=== PATIENT | female | born 2000 | race Caucasian/White ===

== ENCOUNTER 2021-03-19 08:55 | Emergency (ER) | payer MEDICAID, SELFPAY ==
--- NOTE | ~2021-03-19 | CT_ITS ---
EXAMINATION: CT ABDOMEN AND PELVIS WITH CONTRAST CLINICAL INFORMATION: Nausea and vomiting and intermittent lower abdominal pain for 2 weeks. COMPARISON: None TECHNIQUE: Multidetector volumetric images were obtained from the superior aspect of the liver through the pubic symphysis following administration 85 mL of Omnipaque 350 intravenous contrast. Sagittal and coronal reformatted images were obtained on the technologist's workstation. Oral contrast: No This CT examination was performed using dose optimization techniques as appropriate, variously including the following: *Automated exposure control *Adjustment of mA and/or kV according to patient size (this includes techniques or standardized protocols for targeted exams where dose is matched to indication/reason for exam; i.e. extremities or head) *Use of iterative reconstruction technique DLP: 307 mGy-cm FINDINGS: LUNG BASES: The visualized lung bases are unremarkable. LIVER, GALLBLADDER, AND BILIARY TREE: Unremarkable. PANCREAS: Unremarkable. SPLEEN: Unremarkable. ADRENAL GLANDS: Unremarkable. KIDNEYS AND URETERS: The kidneys are normal in size, shape, and attenuation. No hydronephrosis, hydroureter, or calculi seen. No perinephric stranding. BLADDER: Unremarkable. GASTROINTESTINAL TRACT: The stomach, small bowel, appendix and large bowel are unremarkable. ABDOMINAL WALL: No significant hernia is appreciated. LYMPH NODES: Normal. VASCULAR: Unremarkable. PELVIC VISCERA: Unremarkable. 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 No significant degenerative changes or suspicious abnormality. CT/CT abdomen pelvis w con IMPRESSION: No significant intra-abdominal/pelvic abnormality. A causative abnormality for the patient's symptoms is not identified.
[2021-03-19 09:13] VITALS: BP 115/49; PULSE 84; RESP 20; TEMP 36.9; O2SAT 98; BMI 20.7
[2021-03-19 09:49] LABS: Appearance Urine HAZY; Color Urine YELLOW; Glucose Urine UA NEG (NEG); Leukocyte Esterase Urine NEG (NEG); Nitrite Urine NEG (NEG); Specific Gravity - Urine >= 1.030 (1.005-1.025); Urine Blood 3+ (NEG); Urine Ketones NEG (NEG); Urine Protein NEG (NEG-TRACE)
[2021-03-19 09:52] LABS: UPreg QC Valid YES; Urine Pregnancy NEGATIVE (NEGATIVE)
[2021-03-19 09:58] LABS: MANUAL DIFF FLAG NO
[2021-03-19 10:05] LABS: INTERNATIONAL NORM RATIO 1.1 (0.9-1.1); Prothrombin Time 13.6 SEC (10.8-13.0)
[2021-03-19 10:06] LABS: Basophils Percent Auto 0.1 % (0-2); Eosinophils Percent Auto 0.2 % (0-4); Hematocrit 38.5 % (37-47); Imm Gran Abs Auto 0.05 X10*3/uL (0.00-0.03); Imm Gran Pct Auto 0.4 % (0.0-0.4); Lymphocytes Absolute Auto 1.2 X10*3/uL (1.2-4.9); Lymphocytes Percent Auto 8.7 % (20-40); Mean Corpuscular HGB Conc 33.8 g/dl (31.0-35.0); Mean Corpuscular Hemoglobin 30.5 pg (27.0-33.0); Mean Corpuscular Volume 90.4 fL (80-98); Mean Platelet Volume 10.6 fL (9.4-12.3); Monocytes Absolute Auto 0.9 X10*3/uL (0.1-1.2); Monocytes Percent Auto 6.7 % (2-11); Neutrophils Absolute Auto 11.2 X10*3/uL (2.0-8.3); Neutrophils Percent Auto 83.9 % (45-73); Platelet Count 199 X10*3/uL (160-400); Red Blood Count 4.26 X10*6/uL (4.20-5.50); Red Cell Distribution Width 11.9 % (11.0-16.0); White Blood Count 13.3 X10*3/uL (4.8-10.8)
[2021-03-19 10:10] LABS: Bacteria Urine TRACE /LPF; Squamous Epithelial Cell Urine TRACE /LPF; WBC Urine 0-2 /HPF (0-4)
[2021-03-19 10:27] LABS: Alanine Aminotransferase 17 U/L (0-31); Albumin Level 4.3 g/dL (3.5-5.0); Alkaline Phosphatase 73 U/L (39-117); Anion Gap 11 (12-20); Aspartate Amino Transferase 19 U/L (5-31); Bilirubin Total 0.4 mg/dL (0.0-1.0); Blood Urea Nitrogen 9 mg/dL (9-16); Calcium 9.1 mg/dL (8.4-10.2); Carbon Dioxide 25 mmol/L (22-29); Chloride 106 mmol/L (96-108); Creatinine Clr Calc Pharmacy 93.8; Estimated Glomerular Filt Rate > 60; Glucose Random 95 mg/dL (60-115); Magnesium 1.8 mg/dL (1.6-2.6); Potassium 3.6 mmol/L (3.3-5.1); Sodium 138 mmol/L (135-145)
--- NOTE | 2021-03-19 10:43 | ED.ABDPAIN ---
HPI - Abdominal Pain General Chief Complaint: Abdominal Pain Stated Complaint: vomitting Time Seen by Provider: 03/19/21 09:22 Source: patient and family (Mother at bedside) Mode of arrival: ambulatory Limitations: no limitations History of Present Illness HPI narrative: 20-year-old female with no significant past medical or surgical history presenting with her mother with complaints of intermittent vomiting over the past 2 weeks usually in the mornings with associated diffuse abdominal pain. Reports she had an episode this morning. Denies recent travel or sick contacts. Reports she is currently on her menstrual period at this time. Denies any fevers, dizziness, lightheadedness, black or bloody emesis, chest pain, shortness of breath, back pain, dysuria, hematuria, black or bloody stools, diarrhea or constipation or any other symptoms complaints or concerns at this time. MD elicited complaint: abdominal pain Pertinent past history: none Onset (ago): week(s) (Intermittently for the past 2 weeks) Pain Consistency: intermittent Location: diffuse and suprapubic Severity: moderate Quality: aching Radiation: none Migration to: no migration Exacerbating factors: nothing Relieving factors: nothing Associated symptoms: nausea and vomiting Related Data Previous Rx's Medication Instructions Recorded dicyclomine 20 mg PO BID #20 tab 03/19/21 ondansetron HCl [Zofran] 4 mg PO Q8H PRN #14 tab 03/19/21 Allergies Allergy/AdvReac Type Severity Reaction Status Date / Time No Known Allergies Allergy Verified 03/19/21 09:28 Review of Systems Review of Systems Constitutional : No Weight loss, No Fever, No Chills, No Night Sweats, No Fatigue, NoMalaise ENT/Mouth: No ear pain, No sore throat, No Difficulty swallowing Cardiovascular : No Chest Pain, No SOB, No Dyspnea on Exertion, No Orthopnea, NoEdema, No Palpitations Respiratory : No Cough, No Sputum, No Wheezing, No Dyspnea Gastrointestinal : Positive nausea/vomiting/abdominal pain, No Diarrhea, No blood streaked emesis, No coffee-ground emesis, No gross hematemesis, No blood streak stool, No gross hematochezia, No Melena Genitourinary : No irregular bleeding, No Dysuria, No Urinary Frequency, No Hematuria,No Urinary Incontinence, No Urgency, No Flank Pain Musculoskeletal : No joint pain, No Myalgias, No Joint Swelling Skin : No Skin Lesions, No rash Neuro : No Weakness, No Numbness, No Paresthesias, No Loss of Consciousness, NoDizziness, No Headache Psych : No Social Issues, Heme/Lymph: No Bruising, No Bleeding,No Lymphadenopathy Endocrine : No Polyuria, No Polydipsia, No Temperature Intolerance Yes all other systems are reviewed and are negative Physical Exam Vital Signs: Vital Signs: Last Vital Signs Temp 97.5 F 03/19/21 11:05 Pulse 81 03/19/21 11:05 Resp 16 03/19/21 11:05 BP 101/62 03/19/21 11:05 Pulse Ox 97 03/19/21 11:05 Body Mass Index 20.7 vital signs have been reviewed as normal and appeared to be correct. Blood pressure hypotensive at 115/49. Heart rate normal. Respiration rate normal. Temperature normal. Oxygen saturation normal. Appearance: Alert. Oriented X3. No acute distress. Head: Normal external exam. Normocephalic. Eyes: PERRLA. EOMI. Conjunctiva and sclera normal. Eyelids normal. ENT: Pharynx normal. Uvula midline. Moist mucous membranes. Neck: Normal inspection. Neck supple. FROM. No adenopathy. No meningeal signs. CVS: Normal heart rate and rhythm. Heart sound normal. No murmurs noted. Pulses normal throughout. Respiratory: No respiratory distress. Painless inspiration. Breath sounds normal. No wheezes/rales/rhonchi noted. Chest nontender. No accessory muscle usage noted or decreased air movement noted. Abdomen: Soft and tender to palpation to suprapubic/lower abdomen. Nondistended. No guarding. No rigidity. Bowel sounds normal in all 4 quadrants. No distention noted. No organomegaly noted. No visible injury noted. No rebound tenderness. Negative Rovsing sign. Negative obturator's sign. Negative psoas sign. Negative Arreguin sign. Back: No CVA tenderness. Full range of motion noted. Skin: Skin warm and dry. Normal skin color. Normal skin turgor. No rashes/lesions/lacerations noted. Extremities: Extremities exhibit normal range of motion. Extremities nontender. Neuro: Oriented X 3. No motor deficit. No sensory deficit. Reflexes normal. Normal steady gait. Course Course Course Narrative: 12:30pm - labs reviewed and patient with an elevated white blood cell count at 13,000. Otherwise all other labs are within normal limits. UA revealed +3 blood which is consistent with the patient's menstrual period. Negative . CT scan of abdomen and pelvis revealed chronic changes no acute processes were noted. - therefore I went back and discussed this with the patient and her mother at bedside and I offered pelvic exam with swabs although patient declined reported that she is not have any pelvic pain or any abnormal discharge and she is not concerned for any STDs therefore at this time will DC home with referral to GI instructions to return if any new or worsening symptoms to follow up with primary care provider as well. Patient and mother at bedside understand agree with this plan. MDM - Abdominal Pain MDM Narrative Medical decision making narrative: 9:28am - 20-year-old female with no significant past medical or surgical history presenting with her mother with complaints of intermittent vomiting over the past 2 weeks usually in the mornings with associated diffuse abdominal pain. Reports she had an episode this morning. Plan: Labs, UA, CT scan of abdomen and pelvis with IV contrast. Then re-evaluate Medical Records Attestation: I reviewed the patient's medical records. Lab Data Attestation: I reviewed the patient's lab results. Result diagrams: 03/19/21 09:50 03/19/21 09:50 Labs: Lab Results 03/19/21 03/19/21 03/19/21 Range/Units 09:31 09:31 09:50 WBC 13.3 H (4.8-10.8) X10*3/uL RBC 4.26 (4.20-5.50) X10*6/uL Hgb 13.0 (12.0-16.0) g/dl Hct 38.5 (37-47) % MCV 90.4 (80-98) fL MCH 30.5 (27.0-33.0) pg MCHC 33.8 (31.0-35.0) g/dl RDW 11.9 (11.0-16.0) % Plt Count 199 (160-400) X10*3/uL MPV 10.6 (9.4-12.3) fL Immature Gran % (Auto) 0.4 (0.0-0.4) % Neut % (Auto) 83.9 H (45-73) % Lymph % (Auto) 8.7 L (20-40) % [place] % (Auto) 6.7 (2-11) % Eos % (Auto) 0.2 (0-4) % Baso % (Auto) 0.1 (0-2) % Lymph # (Auto) 1.2 (1.2-4.9) X10*3/uL [place] # (Auto) 0.9 (0.1-1.2) X10*3/uL Eos # (Auto) 0.0 (0.0-0.4) X10*3/uL Baso # (Auto) 0.0 (0.0-0.2) X10*3/uL Abs Immat Gran (auto) 0.05 H (0.00-0.03) X10*3/uL Absolute Neuts (auto) 11.2 H (2.0-8.3) X10*3/uL Absolute Nucleated RBC 0.000 (0.0-0.012) X10*3/uL Nucleated RBC % (auto) 0.0 (0.0-0.2) /100WBC PT (10.8-13.0) SEC INR (0.9-1.1) Sodium (135-145) mmol/L Potassium (3.3-5.1) mmol/L Chloride (96-108) mmol/L Carbon Dioxide (22-29) mmol/L Anion Gap (12-20) BUN (9-16) mg/dL Creatinine (0.5-1.4) mg/dL Estim Creat Clear Calc Estimated GFR Random Glucose (60-115) mg/dL Calcium (8.4-10.2) mg/dL Magnesium (1.6-2.6) mg/dL Total Bilirubin (0.0-1.0) mg/dL AST (5-31) U/L ALT (0-31) U/L Alkaline Phosphatase (39-117) U/L Total Protein (6.5-8.0) g/dL Albumin (3.5-5.0) g/dL Urine Color YELLOW Urine Appearance HAZY Urine pH 6.0 (5.0-8.0) Ur Specific [place] >= 1.030 H (1.005-1.025) Urine Protein NEG (NEG-TRACE) MG/DL Urine Glucose (UA) NEG (NEG) MG/DL Urine Ketones NEG (NEG) MG/DL Urine Blood 3+ H (NEG) Urine Nitrite NEG (NEG) Ur Leukocyte Esterase NEG (NEG) Urine RBC 76-150 H (0) /HPF Urine WBC 0-2 (0-4) /HPF Ur Squamous Epith Cells TRACE /LPF Urine Bacteria TRACE /LPF Urine Test NEGATIVE (NEGATIVE) 03/19/21 03/19/21 Range/Units 09:50 09:50 WBC (4.8-10.8) X10*3/uL RBC (4.20-5.50) X10*6/uL Hgb (12.0-16.0) g/dl Hct (37-47) % MCV (80-98) fL MCH (27.0-33.0) pg MCHC (31.0-35.0) g/dl RDW (11.0-16.0) % Plt Count (160-400) X10*3/uL MPV (9.4-12.3) fL Immature Gran % (Auto) (0.0-0.4) % Neut % (Auto) (45-73) % Lymph % (Auto) (20-40) % [place] % (Auto) (2-11) % Eos % (Auto) (0-4) % Baso % (Auto) (0-2) % Lymph # (Auto) (1.2-4.9) X10*3/uL [place] # (Auto) (0.1-1.2) X10*3/uL Eos # (Auto) (0.0-0.4) X10*3/uL Baso # (Auto) (0.0-0.2) X10*3/uL Abs Immat Gran (auto) (0.00-0.03) X10*3/uL Absolute Neuts (auto) (2.0-8.3) X10*3/uL Absolute Nucleated RBC (0.0-0.012) X10*3/uL Nucleated RBC % (auto) (0.0-0.2) /100WBC PT 13.6 H (10.8-13.0) SEC INR 1.1 (0.9-1.1) Sodium 138 (135-145) mmol/L Potassium 3.6 (3.3-5.1) mmol/L Chloride 106 (96-108) mmol/L Carbon Dioxide 25 (22-29) mmol/L Anion Gap 11 L (12-20) BUN 9 (9-16) mg/dL Creatinine 0.71 (0.5-1.4) mg/dL Estim Creat Clear Calc 93.8 Estimated GFR > 60 Random Glucose 95 (60-115) mg/dL Calcium 9.1 (8.4-10.2) mg/dL Magnesium 1.8 (1.6-2.6) mg/dL Total Bilirubin 0.4 (0.0-1.0) mg/dL AST 19 (5-31) U/L ALT 17 (0-31) U/L Alkaline Phosphatase 73 (39-117) U/L Total Protein 7.0 (6.5-8.0) g/dL Albumin 4.3 (3.5-5.0) g/dL Urine Color Urine Appearance Urine pH (5.0-8.0) Ur Specific [place] (1.005-1.025) Urine Protein (NEG-TRACE) MG/DL Urine Glucose (UA) (NEG) MG/DL Urine Ketones (NEG) MG/DL Urine Blood (NEG) Urine Nitrite (NEG) Ur Leukocyte Esterase (NEG) Urine RBC (0) /HPF Urine WBC (0-4) /HPF Ur Squamous Epith Cells /LPF Urine Bacteria /LPF Urine Test (NEGATIVE) Imaging Data CT scan of abdomen pelvis IV contrast: Attestation: I personally reviewed and interpreted this imaging study as follows: Radiologist's impression: FINDINGS: LUNG BASES: The visualized lung bases are unremarkable. LIVER, GALLBLADDER, AND BILIARY TREE: Unremarkable. PANCREAS: Unremarkable. SPLEEN: Unremarkable. ADRENAL GLANDS: Unremarkable. KIDNEYS AND URETERS: The kidneys are normal in size, shape, and attenuation. No hydronephrosis, hydroureter, or calculi seen. No perinephric stranding. BLADDER: Unremarkable. GASTROINTESTINAL TRACT: The stomach, small bowel, appendix and large bowel are unremarkable. ABDOMINAL WALL: No significant hernia is appreciated. LYMPH NODES: Normal. VASCULAR: Unremarkable. PELVIC VISCERA: Unremarkable. 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 No significant degenerative changes or suspicious abnormality. CT/CT abdomen pelvis w con IMPRESSION: No significant intra-abdominal/pelvic abnormality. A causative abnormality for the patient's symptoms is not identified. Discharge Plan Discharge Clinical Impression: Abdominal pain, Nausea & vomiting Patient Disposition: Home, Self-Care Instructions: Acute Nausea and Vomiting (ED), Abdominal Pain (ED) Prescriptions: New ondansetron HCl [Zofran] 4 mg tablet 4 mg PO Q8H PRN (Reason: nausea and vomiting) Qty: 14 RF: 0 dicyclomine 20 mg tablet 20 mg PO BID Qty: 20 RF: 0 Referrals: Willa Lambert MD [Physician] - 2 days Print Language: Bulgarian [facility] Past Medical History Attestation statement: The following information was validated with the patient. Social History Social History Advance Directives: Yes Advance Directives Information Provided: Yes Advance Directives on File: No Patient : No
[2021-03-19 11:05] VITALS: BP 101/62; PULSE 81; RESP 16; TEMP 36.4; O2SAT 97
[2021-03-19] MEDS: iohexoL 350 MG/ML 100 ML INFUS..BTL IV (11:23)
--- NOTE | 2021-03-19 12:56 | MHC.CM.ED ---
Received case management consult from SHELL Vera. Patient was about to be discharged and is concerned about not having insurance and the cost of the prescriptions. Patient is listed as self pay. Information on financial counseling office provided. Reglan is a $4 medicatiion at [facility]. Good RX card provided so Bentyl can be purchased for $20. Patient and mother verbalize understanding. Continue to monitor for d/c needs.
== END 2021-03-19 13:14 | disposition home or self-care (01) ==
PROVIDERS: Physician Assistant Medical; Emergency Provider Emergency Medicine
DX: R10.9 Unspecified abdominal pain (principal); R11.2 Nausea with vomiting, unspecified; Z79.899 Other long term (current) drug therapy
CPT/HCPCS: 36415; 74177; 80053; 81001; 81025; 83735; 85025; 85610; 99284; Q9967

== ENCOUNTER 2021-09-27 17:29 | Emergency (ER) | payer MEDICAID, SELFPAY ==
[2021-09-27 17:33] VITALS: BP 138/76; PULSE 81; RESP 18; TEMP 36.8; O2SAT 99; BMI 19.4
--- NOTE | 2021-09-27 20:18 | PC.NURSE ---
Pt refused Covid swab.
[2021-09-27 20:20] LABS: Basophils Percent Auto 0.3 % (0-2); Eosinophils Percent Auto 0.3 % (0-4); Hematocrit 38.4 % (37.0-47.0); Hemoglobin 12.6 g/dl (12.0-16.0); Imm Gran Abs Auto 0.03 X10*3/uL (0.00-0.03); Imm Gran Pct Auto 0.3 % (0.0-0.4); Lymphocytes Absolute Auto 1.9 X10*3/uL (1.2-4.9); Lymphocytes Percent Auto 20.2 % (20-40); MANUAL DIFF FLAG NO; Mean Corpuscular HGB Conc 32.8 g/dl (31.0-35.0); Mean Corpuscular Hemoglobin 30.3 pg (27.0-33.0); Mean Corpuscular Volume 92.3 fL (80.0-98.0); Mean Platelet Volume 10.7 fL (9.4-12.3); Monocytes Absolute Auto 0.5 X10*3/uL (0.1-1.2); Monocytes Percent Auto 5.7 % (2-11); Neutrophils Absolute Auto 6.9 x10*3/uL (2.0-8.3); Neutrophils Percent Auto 73.2 % (45-73); Platelet Count 245 X10*3/uL (160-400); Red Blood Count 4.16 X10*6/uL (4.20-5.50); Red Cell Distribution Width 11.9 % (11.0-16.0); White Blood Count 9.4 X10*3/uL (4.8-10.8)
[2021-09-27 20:37] LABS: Alanine Aminotransferase 16 U/L (0-31); Albumin Level 4.4 g/dL (3.5-5.0); Alkaline Phosphatase 71 U/L (39-117); Anion Gap 12 (12-20); Aspartate Amino Transferase 21 U/L (5-31); Bilirubin Total 0.5 mg/dL (0.0-1.0); Blood Urea Nitrogen 9 mg/dL (9-16); Calcium 9.7 mg/dL (8.4-10.2); Carbon Dioxide 25 mmol/L (22-29); Chloride 105 mmol/L (96-108); Creatinine Clr Calc Pharmacy 85.6; Estimated Glomerular Filt Rate > 60; Glucose Random 104 mg/dL (60-115); Potassium 4.3 mmol/L (3.3-5.1); Sodium 138 mmol/L (135-145); Total Protein 7.3 g/dL (6.5-8.0)
--- NOTE | 2021-09-27 21:05 | ED_ITS ---
HPI - General Adult General Chief complaint: Headache Stated complaint: headache fatigue Time Seen by Provider: 09/27/21 20:31 Source: patient Mode of arrival: ambulatory Limitations: no limitations History of Present Illness HPI narrative: 20-year-old female patient with history migraine presents to the ED for migraine exacerbation and fatigue. Patient states she was diagnosed with migraine last year in [place] and was placed on migraine regimen, but not of pills worked. Than patient moved here to [place] and does not have a primary care provider and has no meds. Patient recently had her insurance. Patient denies any slurred speech, facial droop, paralysis of extremities, seizures, loss of consciousness tingling/numbness in extremities, loss of vision, neck stiffness, fever, seizure or chills. Patient was tested for COVID September 16 and was negative. Patient is not vaccinated. Patient refused another COVID test in the ER. Related Data Previous Rx's Medication Instructions Recorded dicyclomine 20 mg tablet 20 mg PO BID #20 tab 03/19/21 metoclopramide HCl 10 mg tablet 10 mg PO Q6H PRN #30 tab 03/19/21 (Reglan) ondansetron HCl 4 mg tablet 4 mg PO Q8H PRN #14 tab 03/19/21 (Zofran) [id number] 1 cap PO Q6H PRN 4 Days #16 cap 09/27/21 50 mg-300 mg-40 mg capsule (Fioricet) naproxen 500 mg tablet 500 mg PO BID PRN 10 Days #20 tab 09/27/21 Allergies Allergy/AdvReac Type Severity Reaction Status Date / Time No Known Allergies Allergy Verified 03/19/21 09:28 Review of Systems Review of Systems: Yes all other systems are reviewed and are negative Constitutional: Constitutional: Reports as per HPI, Reports no additional constitutional complaints, Denies anorexia, Denies body ache(s), Denies chills, Reports fatigue and Reports headache(s) Eyes: Eyes: Reports as per HPI and Reports no additional eye complaints ENT: Reports system reviewed and no additional complaints, except as documented, Reports as per HPI and Reports headache(s) Cardiovascular: Cardiovascular: Reports as per HPI and Reports no additional cardiovascular complaints Respiratory: Respiratory: Reports as per HPI and Reports no additional respiratory complaints Gastrointestinal: Gastrointestinal: Reports as per HPI and Reports no additional gastrointestinal complaints Genitourinary: Genitourinary: Reports no additional female genitourinary complaints and Reports as per HPI Musculoskeletal: Musculoskeletal: Reports no additional musculoskeletal complaints and Reports as per HPI Integumentary/Breasts: Skin/Breast: Reports system reviewed and no additional complaints, except as docu and Reports as per HPI Neurologic: Reports system reviewed and no additional complaints, except as documented, Reports as per HPI and Reports headache(s) Psychiatric: Psychiatric: Reports no additional psychiatric complaints and Reports as per HPI Endocrine: Endocrine: Reports fatigue [facility] Social History Social History Advance Directives: No Advance Directives Information Provided: Yes Physical Exam Vital Signs: Vital Signs: Last Vital Signs Temp 98.2 F 09/27/21 17:33 Pulse 81 09/27/21 17:33 Resp 18 09/27/21 17:33 BP 138/76 09/27/21 17:33 Pulse Ox 99 09/27/21 17:33 BMI result Body Mass Index 19.4 Const: General: cooperative, healthy appearing, comfortable, no acute distress, well developed, alert, awake and Physically active Orientation/consciousness: patient oriented x3 HENMT: Head: Yes normal to inspection, Yes No palpable skull fracture present, Yes normocephalic, Yes atraumatic, No abrasion, No Acrocyanosis present, No Whitehead's sign, No contusion, No cranial bruits, No hematoma, No laceration, No occipital foramen tenderness, No palpable skull fracture, No raccoon eyes, No scalp lesion, No scalp tenderness, No Temporal artery tenderness present and No periorbital ecchymosis Ears: hearing grossly normal bilaterally, external ears normal, TM's normal bilaterally, EAC's normal, mastoids normal and no periauricular adenopathy Eyes: Other: Negative nystagmus General: appearance normal, both eyes and all related structures Pupils: Equal, round and reactive pupils present Neck: Neck: Yes normal visual inspection, Yes full ROM, Yes no lymphadenopathy, Yes no meningeal signs, Yes trachea midline, Yes supple, No anterior neck swelling and No tender Chest: Chest palpation & inspection: normal inspection of the chest and normal palpation of entire chest wall Resp: Effort & Inspection: normal respiratory effort and able to speak in complete sentences Auscultation: clear to auscultation bilaterally Cardio: Jugular venous distension: no JVD Heart sounds: S1 normal heart sound present and S2 normal heart sound present GI: Inspection: Yes normal to inspection and No abdominal wall ecchymosis Palpation (GI): Soft to palpation, not firm, nontender, no guarding and not rigid : General: No CVA tenderness and Yes no CVA tenderness Back/Spine/Pelvis: Back: no CVA tenderness, No CVA tenderness and No back tenderness Skin: General skin exam: no rashes or lesions noted and elasticity normal Neuro: Other: Negative facial droop. Negative slurred speech. All extremities equal strength 5+. [id number] and rapid hand movement intact. Negative Romberg. Negative pronator drift. General: patient oriented x3, gait normal, moves all extremities, Normal light touch and pain sensation, no meningeal signs, no focal motor deficits, CN's II-XI intact bilaterally, normal sensation to monofilament and deep tendon reflexes 2+ bilaterally Cranial nerves: Yes CN's II-XII intact bilaterally, Yes Facial sensation intact/muscles of mastication intact, Yes Intact sense of smell present, Yes Equal, round and reactive pupils present, Yes Normal accommodation reflex present, Yes Bilateral ly intact EOM present, Yes Nystagmus not present, Yes Normal facial strength present, Yes Midline tongue present and Yes Normal gag reflex present Cognition (Neuro): normal cognition Extrem: General: Yes normal to inspection and Yes full ROM Psych: Appearance: grossly normal, well kempt and not disheveled NIH Stroke Scale Internal: Other Level of Consciousness: Alert Level of Consciousness Questions: Answers both questions correctly Level of Consciousness Commands: Performs both tasks correctly Best Gaze: Normal Visual: No visual loss Facial Palsy: Normal Motor Arm (Right): No drift Motor Arm (Left): No drift Motor Leg (Right): No drift Motor Leg (Left): No drift Limb Ataxia: Absent Sensory: Normal Best Language: No aphasia Dysarthia: Normal Extinction and Inattention: No abnormality Score: 0 Course Course Course Narrative: Patient refused COVID swab. Reevaluation(s) Reevaluation #1: Patient labs are normal. Negative for any neuro deficits. No indication for head CT scan. Patient will be discharged with naproxen and fiorecet. Diagnosis migraine exacerbation. Patient will be followed up with Neurology to put on migraine regimen. Patient states she has not been on migraine regimen/meds since she moved to [place]. Patient does not remember the names of the meds. NIH score 0. Time: 21:34 Medical Decision Making MDM Narrative Medical decision making narrative: Migraine exacerbation Lab Data Result diagrams: 09/27/21 20:14 09/27/21 20:14 Labs: Lab Results 09/27/21 09/27/21 Range/Units 20:14 20:14 WBC 9.4 (4.8-10.8) X10*3/uL RBC 4.16 L (4.20-5.50) X10*6/uL Hgb 12.6 (12.0-16.0) g/dl Hct 38.4 (37.0-47.0) % MCV 92.3 (80.0-98.0) fL MCH 30.3 (27.0-33.0) pg MCHC 32.8 (31.0-35.0) g/dl RDW 11.9 (11.0-16.0) % Plt Count 245 (160-400) X10*3/uL MPV 10.7 (9.4-12.3) fL Immature Gran % (Auto) 0.3 (0.0-0.4) % Neut % (Auto) 73.2 H (45-73) % Lymph % (Auto) 20.2 (20-40) % [place] % (Auto) 5.7 (2-11) % Eos % (Auto) 0.3 (0-4) % Baso % (Auto) 0.3 (0-2) % Lymph # (Auto) 1.9 (1.2-4.9) X10*3/uL [place] # (Auto) 0.5 (0.1-1.2) X10*3/uL Eos # (Auto) 0.0 (0.0-0.4) X10*3/uL Baso # (Auto) 0.0 (0.0-0.2) X10*3/uL Abs Immat Gran (auto) 0.03 (0.00-0.03) X10*3/uL Absolute Neuts (auto) 6.9 (2.0-8.3) x10*3/uL Absolute Nucleated RBC 0.000 (0.0-0.012) X10*3/uL Nucleated RBC % (auto) 0.0 (0.0-0.2) /100WBC Sodium 138 (135-145) mmol/L Potassium 4.3 (3.3-5.1) mmol/L Chloride 105 (96-108) mmol/L Carbon Dioxide 25 (22-29) mmol/L Anion Gap 12 (12-20) BUN 9 (9-16) mg/dL Creatinine 0.76 (0.5-1.4) mg/dL Estim Creat Clear Calc 85.6 Estimated GFR > 60 Random Glucose 104 (60-115) mg/dL Calcium 9.7 D (8.4-10.2) mg/dL Total Bilirubin 0.5 (0.0-1.0) mg/dL AST 21 (5-31) U/L ALT 16 (0-31) U/L Alkaline Phosphatase 71 (39-117) U/L Total Protein 7.3 (6.5-8.0) g/dL Albumin 4.4 (3.5-5.0) g/dL Beta HCG, Quant < 2 mIU/mL Discharge Plan Discharge Clinical Impression: Migraine Patient Disposition: Home, Self-Care Instructions: Migraine Headache (ED) Additional Instructions: Your labs came back normal. History physical exam does not indicate stroke or any neuro deficits. He will be discharged with medication for headache and should follow up with Neurology. Return to the ED for worsening headache, loss of vision, slurred speech, facial droop, paralysis of extremities, numbness/tingling, fever, chills, neck stiffness, or any other concerning symptoms. Prescriptions: New naproxen 500 mg tablet 500 mg PO BID PRN (Reason: pain) 10 Days Qty: 20 RF: 0 susorokcfv-yskbiollbqisp-eoej [Fioricet] 50-300-40 mg capsule 1 cap PO Q6H PRN (Reason: pain) 4 Days Qty: 16 RF: 0 No Action ondansetron HCl [Zofran] 4 mg tablet 4 mg PO Q8H PRN (Reason: nausea and vomiting) Qty: 14 RF: 0 dicyclomine 20 mg tablet 20 mg PO BID Qty: 20 RF: 0 metoclopramide HCl [Reglan] 10 mg tablet 10 mg PO Q6H PRN (Reason: nausea and vomiting) Qty: 30 RF: 0 Referrals: Tania Kessler MD [Physician] - 2 days (Migraine exacerbation) Interventions: ED Discharge Assessment Last Done: 09/27/21 21:57 Discharge Date/Time: 09/27/21 21:59 Print Language: Citizen [place]
[2021-09-27 21:06] LABS: HCG Quantitative < 2 mIU/mL
== END 2021-09-27 21:59 | disposition home or self-care (01) ==
PROVIDERS: Physician Assistant; Emergency Provider Internal Medicine
DX: G43.909 Migraine, unspecified, not intractable, without status migrainosus (principal)
CPT/HCPCS: 36415; 80053; 84702; 85025; 99283

== ENCOUNTER 2022-04-27 23:32 | Emergency (ER) | payer MEDICAID, SELFPAY ==
[2022-04-28 01:13] VITALS: BP 108/64; PULSE 78; RESP 16; TEMP 37.2; O2SAT 97; BMI 45.8
[2022-04-28 03:11] VITALS: BP 110/66; PULSE 82; RESP 18; TEMP 36.8; O2SAT 99
[2022-04-28 05:27] LABS: Hematocrit 37.2 % (37.0-47.0); Hemoglobin 12.2 g/dl (12.0-16.0); Mean Corpuscular HGB Conc 32.8 g/dl (31.0-35.0); Mean Corpuscular Volume 91.6 fL (80.0-98.0); Mean Platelet Volume 10.3 fL (9.4-12.3); Platelet Count 192 X10*3/uL (160-400); Red Blood Count 4.06 X10*6/uL (4.20-5.50); Red Cell Distribution Width 12.2 % (11.0-16.0); White Blood Count 7.9 X10*3/uL (4.8-10.8)
[2022-04-28 05:43] LABS: Alanine Aminotransferase 13 U/L (0-31); Albumin Level 4.4 g/dL (3.5-5.0); Alkaline Phosphatase 82 U/L (39-117); Anion Gap 10 (12-20); Aspartate Amino Transferase 17 U/L (5-31); Bilirubin Total 0.4 mg/dL (0.0-1.0); Blood Urea Nitrogen 10 mg/dL (9-16); Carbon Dioxide 25 mmol/L (22-29); Chloride 105 mmol/L (96-108); Creatinine Clr Calc Pharmacy 132.1; Estimated Glomerular Filt Rate > 60; Glucose Random 98 mg/dL (60-115); Potassium 4.1 mmol/L (3.3-5.1); Sodium 136 mmol/L (135-145); Total Protein 7.1 g/dL (6.5-8.0)
--- NOTE | 2022-04-28 06:45 | ED.SKABFB ---
HPI - Skin/Abscess/Foreign Bdy General Chief complaint: General Medical Stated complaint: abscess under arm Time Seen by Provider: 04/28/22 06:44 Source: patient Mode of arrival: ambulatory Limitations: no limitations History of Present Illness MD complaint: abscess/boil Onset (ago): day(s) (2) Tetanus up to date: yes Location: LUE and RUE Severity: mild Quality: aching Pain Consistency: constant Relieving factors: none Exacerbating factors: palpation Context: other (hx of boils in axilla with I + D in the past) Associated symptoms: denies other symptoms Treatments prior to arrival: none Related Data Previous Rx's Medication Instructions Recorded dicyclomine 20 mg tablet 20 mg PO BID Abdominal pain #20 03/19/21 tabs metoclopramide HCl 10 mg tablet 10 mg PO Q6H PRN nausea and 03/19/21 (Reglan) vomiting #30 tabs ondansetron HCl 4 mg tablet 4 mg PO Q8H PRN nausea and 03/19/21 (Zofran) vomiting #14 tabs xtjrfjgymn-nexgjvinvhhev-fskjadyi 1 cap PO Q6H PRN pain 4 days #16 09/27/21 50 mg-300 mg-40 mg capsule caps (Fioricet) naproxen 500 mg tablet 500 mg PO BID PRN pain 10 days #20 09/27/21 tabs cephalexin 500 mg capsule 500 mg PO TID 7 days #21 caps 04/28/22 ibuprofen 600 mg tablet 600 mg PO Q6H PRN pain #30 tabs 04/28/22 Allergies Allergy/AdvReac Type Severity Reaction Status Date / Time No Known Allergies Allergy Verified 03/19/21 09:28 Review of Systems Review of Systems: Constitutional : No Fever, No Chills ENT/Mouth : No sore throat, No Rhinorrhea Eyes: No Eye Pain, No Swelling, No Redness Cardiovascular : No Chest Pain, No SOB Respiratory : No Cough, No Sputum Gastrointestinal : No Nausea, No Vomiting, No Diarrhea, No abdominal Pain Genitourinary : No Dysuria, No Hematuria Musculoskeletal : No joint pain, No Myalgias, No Joint Swelling Skin : pos Skin Lesions, positive skin rash Neuro : No Weakness, No Numbness, No Headache Psych : No Anxiety, No Depression Heme/Lymph: No Bruising, No Bleeding,No Lymphadenopathy Endocrine : No Polyuria, No Polydipsia All other systems reviewed and are negative [facility] Past Medical History Attestation statement: The following information was validated with the patient. Medical History Abscess Social History Social History (Updated 04/28/22 @ 07:05 by Geovanna Robledo DO) Patient Tobacco Use Status: Never used Tobacco Advance Directives: No Advance Directives Information Provided: No Physical Exam Vital Signs: Vital Signs: Last Vital Signs Temp 98.2 F 04/28/22 03:11 Pulse 82 04/28/22 03:11 Resp 18 04/28/22 03:11 BP 110/66 04/28/22 03:11 Pulse Ox 99 04/28/22 03:11 O2 Del Method 04/28/22 03:11 BMI result Body Mass Index 45.8 Appearance: Alert. Oriented X3. No acute distress. Eyes: Pupils equal, round and reactive to light. ENT: Pharynx normal. Neck: Normal inspection. Neck supple. no lymphadenopathy CVS: Normal heart rate and rhythm. Pulses normal. Respiratory: No respiratory distress. Breath sounds normal. Abdomen: Soft and nontender. no groin lymphadenopathy Skin: Skin warm and dry. Normal skin color. L and R axilla small boils felt but not fluctuant and less than 1cm no signs of cellulitis Extremities: No lower extremity edema. No calf ttp Neuro: Oriented X 3. No motor deficit. No sensory deficit. MDM - Skin/Abscess/Foreign Bdy MDM Narrative Medical decision making narrative: 21 yo female with hx of axillary abscess comes in with small boils in both axilla too small to I+D no other signs of infection and no LAD in neck/groin. Labs wnl. Will start on cephalexin and refer to PCP we did discuss if these do not improve to see PCP. She denies cuts on arm or cat scratches. Anticipate DC home with PCP follow up. Lab Data Result diagrams: 04/28/22 05:15 04/28/22 05:15 Labs: Lab Results 04/28/22 04/28/22 Range/Units 05:15 05:15 WBC 7.9 (4.8-10.8) X10*3/uL RBC 4.06 L (4.20-5.50) X10*6/uL Hgb 12.2 (12.0-16.0) g/dl Hct 37.2 (37.0-47.0) % MCV 91.6 (80.0-98.0) fL MCH 30.0 (27.0-33.0) pg MCHC 32.8 (31.0-35.0) g/dl RDW 12.2 (11.0-16.0) % Plt Count 192 (160-400) X10*3/uL MPV 10.3 (9.4-12.3) fL Absolute Nucleated RBC 0.000 (0.0-0.012) X10*3/uL Nucleated RBC % (auto) 0.0 (0.0-0.2) /100WBC Sodium 136 (135-145) mmol/L Potassium 4.1 (3.3-5.1) mmol/L Chloride 105 (96-108) mmol/L Carbon Dioxide 25 (22-29) mmol/L Anion Gap 10 L (12-20) BUN 10 (9-16) mg/dL Creatinine 0.76 (0.5-1.4) mg/dL Estim Creat Clear Calc 132.1 Estimated GFR > 60 Random Glucose 98 (60-115) mg/dL Calcium 9.0 D (8.4-10.2) mg/dL Total Bilirubin 0.4 (0.0-1.0) mg/dL AST 17 (5-31) U/L ALT 13 (0-31) U/L Alkaline Phosphatase 82 (39-117) U/L Total Protein 7.1 (6.5-8.0) g/dL Albumin 4.4 (3.5-5.0) g/dL Discharge Plan Discharge Clinical Impression: Axillary hidradenitis suppurativa, Boil Patient Disposition: Home, Self-Care Instructions: Abscess (ED), Hidradenitis Suppurativa (ED) Additional Instructions: return to ED for any worsening symptoms or concerns if no improvement on antibiotics in 48 hours or bumps remain please see your doctor Prescriptions: New cephalexin 500 mg capsule 500 mg PO TID 7 Days Qty: 21 0RF ibuprofen 600 mg tablet 600 mg PO Q6H PRN (Reason: pain) Qty: 30 0RF No Action ondansetron HCl [Zofran] 4 mg tablet 4 mg PO Q8H PRN (Reason: nausea and vomiting) Qty: 14 0RF dicyclomine 20 mg tablet 20 mg PO BID Qty: 20 0RF metoclopramide HCl [Reglan] 10 mg tablet 10 mg PO Q6H PRN (Reason: nausea and vomiting) Qty: 30 0RF naproxen 500 mg tablet 500 mg PO BID PRN (Reason: pain) 10 Days Qty: 20 0RF nqxliltlvn-kkzsclvlrvptc-gzql [Fioricet] 50-300-40 mg capsule 1 cap PO Q6H PRN (Reason: pain) 4 Days Qty: 16 0RF Rx Instructions: headache Stand Alone Forms: Work/School Release Interventions: ED Discharge Assessment Last Done: 04/28/22 07:05
== END 2022-04-28 07:05 | disposition home or self-care (01) ==
PROVIDERS: Emergency Provider Emergency Medicine
DX: L02.411 Cutaneous abscess of right axilla (principal); L02.412 Cutaneous abscess of left axilla; Z79.899 Other long term (current) drug therapy
CPT/HCPCS: 36415; 80053; 85027; 99282; 99283

== ENCOUNTER 2022-05-15 15:03 | Emergency (ER) | payer MEDICAID, SELFPAY ==
--- NOTE | ~2022-05-15 | US_ITS ---
EXAMINATION: US PELVIS CLINICAL INFORMATION: Lower abdominal pain COMPARISON: None TECHNIQUE: Ultrasound of the pelvis is performed using both transabdominal and transvaginal transducers along with Doppler and spectral analysis. Transvaginal imaging is performed due to inadequate visualization transabdominally. FINDINGS: Uterus: The uterus is anteverted and measures 6.6 x 2.6 x 4.6 cm. The double wall endometrial thickness is mm. The uterus is smooth in contour and has normal myometrial echogenicity. No visible fibroid. Adnexa: Both ovaries are visualized. There is normal color flow to the adnexa. There is no ovarian torsion. There is no pelvic ascites or fluid collection. Normal arterial and venous waveforms present within both ovaries. Right ovary measures 2.7 x 2.2 x 2.1 cm. Left ovary measures 3.2 x 1.7 x 2.7 cm. US/US pelvic and transvaginal IMPRESSION: No evidence of ovarian torsion. Unremarkable exam.
--- NOTE | ~2022-05-15 | US_ITS ---
EXAMINATION: US PELVIS CLINICAL INFORMATION: Lower abdominal pain COMPARISON: None TECHNIQUE: Ultrasound of the pelvis is performed using both transabdominal and transvaginal transducers along with Doppler and spectral analysis. Transvaginal imaging is performed due to inadequate visualization transabdominally. FINDINGS: Uterus: The uterus is anteverted and measures 6.6 x 2.6 x 4.6 cm. The double wall endometrial thickness is mm. The uterus is smooth in contour and has normal myometrial echogenicity. No visible fibroid. Adnexa: Both ovaries are visualized. There is normal color flow to the adnexa. There is no ovarian torsion. There is no pelvic ascites or fluid collection. Normal arterial and venous waveforms present within both ovaries. Right ovary measures 2.7 x 2.2 x 2.1 cm. Left ovary measures 3.2 x 1.7 x 2.7 cm. US/US pelvic ovarian doppler IMPRESSION: No evidence of ovarian torsion. Unremarkable exam.
--- NOTE | ~2022-05-15 | CT_ITS ---
EXAMINATION: CT ABDOMEN AND PELVIS WITHOUT CONTRAST CLINICAL INFORMATION: Lower abdominal pain COMPARISON: CT abdomen and pelvis 03/19/2021 TECHNIQUE: Multidetector volumetric imaging was performed from the superior aspect of the liver through the pubic symphysis. Sagittal and coronal reformatted images were obtained on the technologist's workstation. This CT examination was performed using dose optimization techniques as appropriate, variously including the following: *Automated exposure control *Adjustment of mA and/or kV according to patient size (this includes techniques or standardized protocols for targeted exams where dose is matched to indication/reason for exam; i.e. extremities or head) *Use of iterative reconstruction technique DLP: 285 mGy-cm FINDINGS: LUNG BASES: The visualized lung bases are unremarkable. LIVER, GALLBLADDER, AND BILIARY TREE: The liver is normal in size, shape, and attenuation. No focal hepatic lesion or biliary ductal dilatation is present. The gallbladder is unremarkable with no evidence of radiopaque gallstones, gallbladder wall thickening, or obvious pericholecystic inflammatory changes. PANCREAS: Unremarkable. SPLEEN: Unremarkable. ADRENAL GLANDS: Unremarkable. KIDNEYS AND URETERS: The kidneys are normal in size, shape, and attenuation. No hydronephrosis, hydroureter, or calculi seen. No perinephric stranding. BLADDER: Unremarkable. GASTROINTESTINAL TRACT: No dilated bowel loops. No bowel wall thickening. Appendix is difficult to confidently identified in its entirety. A portion of the appendix is visualized and appears nondilated. No inflammatory changes to suggest indirect evidence of acute appendicitis. No ascites or free air. ABDOMINAL WALL: No significant hernia is appreciated. LYMPH NODES: No lymphadenopathy. VASCULAR: Unremarkable. PELVIC VISCERA: Gynecologic structures are grossly unremarkable. OSSEOUS STRUCTURES: No acute fracture or suspicious osseous lesion. CT/CT abdomen pelvis wo con IMPRESSION: 1. No acute intra-abdominal process identified.
[2022-05-15 15:14] VITALS: BP 115/68; PULSE 72; RESP 16; TEMP 36.7; O2SAT 98; BMI 19.8
[2022-05-15 16:23] LABS: MANUAL DIFF FLAG NO
[2022-05-15 16:25] LABS: Basophils Percent Auto 0.5 % (0-2); Eosinophils Percent Auto 0.4 % (0-4); Hematocrit 41.6 % (37.0-47.0); Hemoglobin 13.9 g/dl (12.0-16.0); Imm Gran Abs Auto 0.02 X10*3/uL (0.00-0.03); Imm Gran Pct Auto 0.4 % (0.0-0.4); Lymphocytes Absolute Auto 1.5 X10*3/uL (1.2-4.9); Lymphocytes Percent Auto 25.4 % (20-40); Mean Corpuscular HGB Conc 33.4 g/dl (31.0-35.0); Mean Corpuscular Hemoglobin 30.4 pg (27.0-33.0); Mean Platelet Volume 10.1 fL (9.4-12.3); Monocytes Absolute Auto 0.4 X10*3/uL (0.1-1.2); Neutrophils Absolute Auto 3.8 x10*3/uL (2.0-8.3); Neutrophils Percent Auto 66.3 % (45-73); Platelet Count 251 X10*3/uL (160-400); Red Blood Count 4.57 X10*6/uL (4.20-5.50); Red Cell Distribution Width 12.2 % (11.0-16.0); White Blood Count 5.7 X10*3/uL (4.8-10.8)
[2022-05-15 16:45] LABS: Alanine Aminotransferase 12 U/L (0-31); Albumin Level 4.9 g/dL (3.5-5.0); Alkaline Phosphatase 71 U/L (39-117); Anion Gap 14 (12-20); Aspartate Amino Transferase 20 U/L (5-31); Bilirubin Total 0.7 mg/dL (0.0-1.0); Blood Urea Nitrogen 9 mg/dL (9-16); Calcium 9.7 mg/dL (8.4-10.2); Carbon Dioxide 26 mmol/L (22-29); Chloride 104 mmol/L (96-108); Creatinine Clr Calc Pharmacy 95.3; Estimated Glomerular Filt Rate > 60; Glucose Random 96 mg/dL (60-115); Potassium 3.8 mmol/L (3.3-5.1); Sodium 140 mmol/L (135-145)
--- NOTE | 2022-05-15 19:14 | ED.FEMALEGU ---
HPI - Female Genitourinary General Chief complaint: Vaginal Bleeding Stated complaint: Irregular menstruation Time Seen by Provider: 05/15/22 18:28 Source: patient Mode of arrival: ambulatory Limitations: no limitations History of Present Illness HPI Narrative: This is a 21-year-old female no significant pmhx presenting to the emergency department with complaints of lower abdominal pain, back pain, pelvic pain, irregular bleeding x3 days. Patient tells me she finished her period 5 days ago and suddenly started having vaginal bleeding for starting 3 days ago, she tells me she is going through 3 pads a day, she tells me she is bleeding a mhox-ez-sqouoscg amount. Dark red blood. Reports this is never happened to her before. Patient unsure if she is . Not on control. Denies any changes in bowel habits, fevers, chills, chest pain, shortness of breath. Patient smells like marijuanna. MD elicited complaint: pelvic pain Related Data Previous Rx's Medication Instructions Recorded dicyclomine 20 mg tablet 20 mg PO BID Abdominal pain #20 03/19/21 tabs metoclopramide HCl 10 mg tablet 10 mg PO Q6H PRN nausea and 03/19/21 (Reglan) vomiting #30 tabs ondansetron HCl 4 mg tablet 4 mg PO Q8H PRN nausea and 03/19/21 (Zofran) vomiting #14 tabs ujuncqyvnl-lcmdzezwfelvo-swownwty 1 cap PO Q6H PRN pain 4 days #16 09/27/21 50 mg-300 mg-40 mg capsule caps (Fioricet) naproxen 500 mg tablet 500 mg PO BID PRN pain 10 days #20 09/27/21 tabs cephalexin 500 mg capsule 500 mg PO TID 7 days #21 caps 04/28/22 ibuprofen 600 mg tablet 600 mg PO Q6H PRN pain #30 tabs 04/28/22 cefuroxime axetil 250 mg tablet 250 mg PO BID 7 days #14 tabs 05/15/22 phenazopyridine 100 mg tablet 200 mg PO TID 2 days #6 tabs 05/15/22 (Pyridium) Allergies Allergy/AdvReac Type Severity Reaction Status Date / Time No Known Allergies Allergy Verified 05/15/22 15:14 Review of Systems Review of Systems: Constitutional : No Weight loss, No Fever, No Chills, No Fatigue, No Malaise ENT/Mouth : No sore throat, No Rhinorrhea Eyes: No Eye Pain, No Swelling, No Redness Cardiovascular : No Chest Pain, No SOB, No Dyspnea on Exertion, No Orthopnea, No Edema, No Palpitations Respiratory : No Cough, No Sputum, No Wheezing Gastrointestinal : No Nausea, No Vomiting, No Diarrhea, No Constipation, No abdominal Pain, No Hematochezia, No Melena Genitourinary : No Dysuria, No Urinary Frequency, No Hematuria, + vaginal bleeding Musculoskeletal : No joint pain, No Myalgias, No Joint Swelling Skin : No Skin Lesions, No rash Neuro : No Weakness, No Numbness, No Dizziness, No Headache Psych : No Anxiety/Panic, No Depression Heme/Lymph: No Bruising, No Bleeding,No Lymphadenopathy Endocrine : No Polyuria, No Polydipsia All other systems reviewed and are negative Yes all other systems are reviewed and are negative [facility] Past Medical History Attestation statement: The following information was validated with the patient. Source: old records reviewed and nursing notes reviewed Medical History Abscess Social History Social History Patient Tobacco Use Status: Never used Tobacco Advance Directives: No Advance Directives Information Provided: Yes Physical Exam Vital Signs: Vital Signs: Last Vital Signs Temp 98.0 F 05/15/22 15:14 Pulse 72 05/15/22 15:14 Resp 16 05/15/22 15:14 BP 115/68 05/15/22 15:14 Pulse Ox 98 05/15/22 15:14 O2 Del Method 05/15/22 15:14 BMI result Body Mass Index 19.8 vss Appearance: Alert.? Oriented X3.? No acute distress.? Head: Normocephalic, atraumatic, no step-offs or deformities Eyes: Pupils equal, round and reactive to light.? ENT: Pharynx normal.? Neck: Normal inspection.? Neck supple.? CVS: Normal heart rate and rhythm.? Pulses normal.? Respiratory: No respiratory distress.? Breath sounds normal.? Abdomen: Soft and + diffusely tender. Normal BS X4? Skin: Skin warm and dry.? Normal skin color.? Normal skin turgor.? Extremities: No lower extremity edema.? No calf ttp. 5/5 strength to bilateral upper and lower extremities Back: No midline tenderness, no C-spine tenderness, full range of motion, no CVA tenderness bilaterally Neuro: Oriented X 3.? No motor deficit.? No sensory deficit. CN 2-12 intact Course Reevaluation(s) Reevaluation #1: Patient without having to change her pad of while in the department. CBC within normal limits. Chemistry with no acute electrolyte abnormalities requiring intervention. HCG negative. Urine positive for urinary tract infection. Patient denies concern for STDs. CT of the abdomen and pelvis with no acute intra-abdominal process identified. Ultrasound of the pelvis with no evidence of ovarian torsion, unremarkable exam. This time patient will be discharged home with p.o. antibiotics to cover for UTI. Low suspicion for pyelo however will do Ceftin 250 mg p.o. b.i.d. x7 days which would also cover for pyelonephritis. At this time I feel comfortable discharge home. Time: 21:34 MDM - Female Genitourinary [facility] Narrative Medical decision making narrative: 1821 21-year-old female presenting with lower abdominal pain, back pain, pelvic pain, abnormal vaginal bleeding x3 days. Not on control, does not think she is . Physical examination with a diffusely tender abdomen. Unlikely bowel obstruction, no signs of acute abdomen, low suspicion for appendicitis, cholecystitis, diverticulitis. Will rule out torsion, ovarian cyst and . Will also obtain urine to rule out UTI. Plan at this time is to obtain a urine, labs, CT of the abdomen pelvis without contrast, ultrasound. Medical Records Attestation: I reviewed the patient's medical records. Lab Data Attestation: I reviewed the patient's lab results. Result diagrams: 05/15/22 16:18 05/15/22 16:18 Labs: Lab Results 05/15/22 05/15/22 05/15/22 Range/Units 16:18 16:18 18:50 WBC 5.7 (4.8-10.8) X10*3/uL RBC 4.57 (4.20-5.50) X10*6/uL Hgb 13.9 (12.0-16.0) g/dl Hct 41.6 (37.0-47.0) % MCV 91.0 (80.0-98.0) fL MCH 30.4 (27.0-33.0) pg MCHC 33.4 (31.0-35.0) g/dl RDW 12.2 (11.0-16.0) % Plt Count 251 D (160-400) X10*3/uL MPV 10.1 (9.4-12.3) fL Immature Gran % (Auto) 0.4 (0.0-0.4) % Neut % (Auto) 66.3 (45-73) % Lymph % (Auto) 25.4 (20-40) % [place] % (Auto) 7.0 (2-11) % Eos % (Auto) 0.4 (0-4) % Baso % (Auto) 0.5 (0-2) % Lymph # (Auto) 1.5 (1.2-4.9) X10*3/uL [place] # (Auto) 0.4 (0.1-1.2) X10*3/uL Eos # (Auto) 0.0 (0.0-0.4) X10*3/uL Baso # (Auto) 0.0 (0.0-0.2) X10*3/uL Abs Immat Gran (auto) 0.02 (0.00-0.03) X10*3/uL Absolute Neuts (auto) 3.8 (2.0-8.3) x10*3/uL Absolute Nucleated RBC 0.000 (0.0-0.012) X10*3/uL Nucleated RBC % (auto) 0.0 (0.0-0.2) /100WBC Sodium 140 (135-145) mmol/L Potassium 3.8 (3.3-5.1) mmol/L Chloride 104 (96-108) mmol/L Carbon Dioxide 26 (22-29) mmol/L Anion Gap 14 (12-20) BUN 9 (9-16) mg/dL Creatinine 0.69 (0.5-1.4) mg/dL Estim Creat Clear Calc 95.3 Estimated GFR > 60 Random Glucose 96 (60-115) mg/dL Calcium 9.7 D (8.4-10.2) mg/dL Total Bilirubin 0.7 (0.0-1.0) mg/dL AST 20 (5-31) U/L ALT 12 (0-31) U/L Alkaline Phosphatase 71 (39-117) U/L Total Protein 8.0 (6.5-8.0) g/dL Albumin 4.9 (3.5-5.0) g/dL Beta HCG, Quant < 2 mIU/mL Urine Color RED A Urine Appearance CLOUDY Urine pH 7.0 (5.0-8.0) Ur Specific [place] 1.010 (1.005-1.025) Urine Protein 2+ H (NEG-TRACE) MG/DL Urine Glucose (UA) NEG (NEG) MG/DL Urine Ketones 40 (NEG) MG/DL Urine Blood 3+ H (NEG) Urine Nitrite POS H (NEG) Ur Leukocyte Esterase 1+ H (NEG) Urine RBC TNTC H (0) /HPF Urine WBC 1-4 (0-4) /HPF Ur Squamous Epith Cells 2+ /LPF Urine Bacteria 1+ /LPF Critical Care Time Critical Care Time Critical Care Time: No Discharge Plan Discharge Clinical Impression: Vaginal bleeding, Abdominal pain, UTI (urinary tract infection) Patient Disposition: Home, Self-Care Instructions: Dysfunctional Uterine Bleeding (ED), Abdominal Pain (ED) Additional Instructions: Take your medications as prescribed. If you were prescribed antibiotics today, it is important that you take your medication to their entirety, do not skip any doses, do not finish them early. Follow-up with your primary care provider this week. Follow-up with OBGYN this week. Return to the emergency department with new or worsening symptoms. Such as fevers, chills, chest pain, shortness of breath, nausea, vomiting, dizziness, headache, vision changes, lethargy Come to the emergency department of bleeding through more than 1-2 pads per hour In case of emergency call 911 Prescriptions: New cefuroxime axetil 250 mg tablet 250 mg PO BID 7 Days Qty: 14 0RF phenazopyridine [Pyridium] 100 mg tablet 200 mg PO TID 2 Days Qty: 6 0RF No Action ondansetron HCl [Zofran] 4 mg tablet 4 mg PO Q8H PRN (Reason: nausea and vomiting) Qty: 14 0RF dicyclomine 20 mg tablet 20 mg PO BID Qty: 20 0RF metoclopramide HCl [Reglan] 10 mg tablet 10 mg PO Q6H PRN (Reason: nausea and vomiting) Qty: 30 0RF naproxen 500 mg tablet 500 mg PO BID PRN (Reason: pain) 10 Days Qty: 20 0RF bzuycajqwj-xxulxpibsgmih-ubpr [Fioricet] 50-300-40 mg capsule 1 cap PO Q6H PRN (Reason: pain) 4 Days Qty: 16 0RF Rx Instructions: headache cephalexin 500 mg capsule 500 mg PO TID 7 Days Qty: 21 0RF ibuprofen 600 mg tablet 600 mg PO Q6H PRN (Reason: pain) Qty: 30 0RF Referrals: Physician,None [Primary Care Provider] - 2 days Darrick Man MD [Physician] - 2 weeks
[2022-05-15 19:15] LABS: HCG Quantitative < 2 mIU/mL
[2022-05-15 19:25] LABS: Appearance Urine CLOUDY; Color Urine RED; Glucose Urine UA NEG (NEG); Leukocyte Esterase Urine 1+ (NEG); Nitrite Urine POS (NEG); UACC Culture Trigger YES; Urine Blood 3+ (NEG); Urine Ketones 40 MG/DL (NEG); Urine Protein 2+ MG/DL (NEG-TRACE)
[2022-05-15 19:33] LABS: Bacteria Urine 1+ /LPF; RBC Urine TNTC /HPF (0); Squamous Epithelial Cell Urine 2+ /LPF
[2022-05-15 21:44] VITALS: BP 116/60; PULSE 82; RESP 16; O2SAT 100
== END 2022-05-15 21:47 | disposition home or self-care (01) ==
PROVIDERS: Physician Assistant; Emergency Provider Emergency Medicine
DX: N93.9 Abnormal uterine and vaginal bleeding, unspecified (principal); N39.0 Urinary tract infection, site not specified; R10.30 Lower abdominal pain, unspecified; F12.90 Cannabis use, unspecified, uncomplicated
CPT/HCPCS: 36415; 74176; 76830; 76856; 80053; 81001; 81003; 84702; 85025; 87086; 87147; 93975; 99283; 99284

== ENCOUNTER 2022-05-26 00:32 | Emergency (ER) | payer MEDICAID, SELFPAY ==
[2022-05-26 00:37] VITALS: BP 130/92; PULSE 93; RESP 16; TEMP 36.6; O2SAT 99; BMI 20.2
[2022-05-26] MEDS: Acetaminophen 325 MG TABLET 975 MG PO (00:46)
[2022-05-26 00:55] LABS: MANUAL DIFF FLAG NO
[2022-05-26 01:05] LABS: Basophils Percent Auto 0.5 % (0-2); Eosinophils Percent Auto 0.2 % (0-4); Hemoglobin 12.8 g/dl (12.0-16.0); Imm Gran Abs Auto 0.02 X10*3/uL (0.00-0.03); Imm Gran Pct Auto 0.3 % (0.0-0.4); Lymphocytes Absolute Auto 1.5 X10*3/uL (1.2-4.9); Mean Corpuscular HGB Conc 33.7 g/dl (31.0-35.0); Mean Corpuscular Hemoglobin 30.6 pg (27.0-33.0); Mean Corpuscular Volume 90.9 fL (80.0-98.0); Mean Platelet Volume 10.5 fL (9.4-12.3); Monocytes Absolute Auto 0.6 X10*3/uL (0.1-1.2); Monocytes Percent Auto 9.3 % (2-11); Neutrophils Absolute Auto 4.2 x10*3/uL (2.0-8.3); Neutrophils Percent Auto 66.7 % (45-73); Platelet Count 194 X10*3/uL (160-400); Red Blood Count 4.18 X10*6/uL (4.20-5.50); Red Cell Distribution Width 12.1 % (11.0-16.0); White Blood Count 6.3 X10*3/uL (4.8-10.8)
[2022-05-26 02:00] VITALS: BP 109/65; PULSE 77; RESP 21; TEMP 36.8; O2SAT 99
--- NOTE | 2022-05-26 02:06 | ED_ITS ---
HPI - Abdominal Pain General Chief Complaint: Abdominal Pain Stated Complaint: abdominal pain Time Seen by Provider: 05/26/22 01:13 Source: patient Mode of arrival: ambulatory Limitations: no limitations History of Present Illness HPI narrative: 21 yo female with intermittent abdominal pain worse with lifting. She is also nauseated. She notes she was seen for same complaint 05/15 with negative pelvic US and CT scan dx with UTI treated with ceftin - grew out strep B. She notes she still has some nausea and abdominal pain but only when she lifts at work which is 25lbs. She denies other or GI complaints her pain is triggered by lifting. MD elicited complaint: abdominal pain Pertinent past history: none Onset (ago): day(s) (2+) Pain Consistency: intermittent Location: periumbilical and suprapubic Severity: mild Quality: cramping Radiation: none Migration to: no migration Exacerbating factors: other (lifting 25lbs at work) Relieving factors: nothing Associated symptoms: nausea Related Data Previous Rx's Medication Instructions Recorded dicyclomine 20 mg tablet 20 mg PO BID Abdominal pain #20 03/19/21 tabs metoclopramide HCl 10 mg tablet 10 mg PO Q6H PRN nausea and 03/19/21 (Reglan) vomiting #30 tabs ondansetron HCl 4 mg tablet 4 mg PO Q8H PRN nausea and 03/19/21 (Zofran) vomiting #14 tabs kfkaizdrwc-vgqjysxxspvrz-cqhdxtjs 1 cap PO Q6H PRN pain 4 days #16 09/27/21 50 mg-300 mg-40 mg capsule caps (Fioricet) naproxen 500 mg tablet 500 mg PO BID PRN pain 10 days #20 09/27/21 tabs cephalexin 500 mg capsule 500 mg PO TID 7 days #21 caps 04/28/22 ibuprofen 600 mg tablet 600 mg PO Q6H PRN pain #30 tabs 04/28/22 cefuroxime axetil 250 mg tablet 250 mg PO BID 7 days #14 tabs 05/15/22 phenazopyridine 100 mg tablet 200 mg PO TID 2 days #6 tabs 05/15/22 (Pyridium) ondansetron 4 mg disintegrating 4 mg PO Q8H PRN nausea and 05/26/22 tablet vomiting #20 tabs Allergies Allergy/AdvReac Type Severity Reaction Status Date / Time No Known Allergies Allergy Verified 05/15/22 15:14 Review of Systems Review of Systems Constitutional : No Weight loss, No Fever, No Chills ENT/Mouth : No sore throat, No Rhinorrhea Eyes: No Swelling, No Redness Cardiovascular : No Chest Pain, No SOB, No edema Respiratory : No Cough, No Sputum, No Wheezing Gastrointestinal : Positive Nausea, no Vomiting, no Diarrhea, positive abdominal Pain, No Hematochezia, No Melena Genitourinary : No Dysuria, No Urinary Frequency, No Hematuria, No Urgency Musculoskeletal : No joint pain, No Myalgias, No Joint Swelling Skin : No Skin Lesions, No rash Neuro : No Weakness, No Numbness, No Dizziness, No Headache Psych : No Anxiety/Panic, No Depression Heme/Lymph: No Bruising, No Lymphadenopathy Endocrine : No Polyuria, No Polydipsia All other systems reviewed and are negative. [facility] Past Medical History Attestation statement: The following information was validated with the patient. Medical History Abscess Social History Social History Patient Tobacco Use Status: Never used Tobacco Physical Exam ED Vital Signs: Vital Signs - 24 hr 05/26/22 00:37 05/26/22 02:00 Temperature 98 F 98.3 F Pulse Rate 93 77 Respiratory Rate 16 21 H Blood Pressure 130/92 H 109/65 Pulse Oximetry 99 99 Oxygen Delivery Method Room Air Room Air BMI result Body Mass Index 20.2 Appearance: Alert. Oriented X3. No acute distress. Eyes: Pupils equal, round and reactive to light. ENT: Pharynx normal. Neck: Normal inspection. Neck supple. CVS: Normal heart rate and rhythm. Pulses normal. Respiratory: No respiratory distress. Breath sounds normal. Abdomen: Soft and nontender. no mass felt, only has minimal pain along rectus when she does an abdominal crunch Skin: Skin warm and dry. Normal skin color. Normal skin turgor. Extremities: No lower extremity edema. No calf ttp Neuro: Oriented X 3. No motor deficit. No sensory deficit. MDM - Abdominal Pain MDM Narrative Medical decision making narrative: 21 yo female here with abdominal pain made worse by lifting and nausea just had full US and CT scan with same symptoms. Her abdominal pain seems abdominal wall strain related. She has no hernia no fevers/vomiting/diarrhea or change in bowel habits to suggest IBS. She has no other complaints - if workup negative will limit lifting to 10lbs for 1 week to see if it improves. Dispo per results and findings. Lab Data Result diagrams: 05/26/22 00:48 05/26/22 00:48 Labs: Lab Results 05/26/22 05/26/22 05/26/22 Range/Units 00:48 00:48 02:38 WBC 6.3 (4.8-10.8) X10*3/uL RBC 4.18 L (4.20-5.50) X10*6/uL Hgb 12.8 (12.0-16.0) g/dl Hct 38.0 (37.0-47.0) % MCV 90.9 (80.0-98.0) fL MCH 30.6 (27.0-33.0) pg MCHC 33.7 (31.0-35.0) g/dl RDW 12.1 (11.0-16.0) % Plt Count 194 (160-400) X10*3/uL MPV 10.5 (9.4-12.3) fL Immature Gran % (Auto) 0.3 (0.0-0.4) % Neut % (Auto) 66.7 (45-73) % Lymph % (Auto) 23.0 (20-40) % [place] % (Auto) 9.3 (2-11) % Eos % (Auto) 0.2 (0-4) % Baso % (Auto) 0.5 (0-2) % Lymph # (Auto) 1.5 (1.2-4.9) X10*3/uL [place] # (Auto) 0.6 (0.1-1.2) X10*3/uL Eos # (Auto) 0.0 (0.0-0.4) X10*3/uL Baso # (Auto) 0.0 (0.0-0.2) X10*3/uL Abs Immat Gran (auto) 0.02 (0.00-0.03) X10*3/uL Absolute Neuts (auto) 4.2 (2.0-8.3) x10*3/uL Absolute Nucleated RBC 0.000 (0.0-0.012) X10*3/uL Nucleated RBC % (auto) 0.0 (0.0-0.2) /100WBC Sodium 140 (135-145) mmol/L Potassium 4.1 (3.3-5.1) mmol/L Chloride 105 (96-108) mmol/L Carbon Dioxide 25 (22-29) mmol/L Anion Gap 14 (12-20) BUN 9 (9-16) mg/dL Creatinine 0.83 (0.5-1.4) mg/dL Estim Creat Clear Calc 79.5 Estimated GFR > 60 Random Glucose 98 (60-115) mg/dL Calcium 9.3 (8.4-10.2) mg/dL Total Bilirubin 0.3 (0.0-1.0) mg/dL AST 19 (5-31) U/L ALT 17 (0-31) U/L Alkaline Phosphatase 63 (39-117) U/L Total Protein 7.1 (6.5-8.0) g/dL Albumin 4.4 (3.5-5.0) g/dL Lipase 33 (8-78) U/L Urine Color YELLOW Urine Appearance CLEAR Urine pH 7.0 (5.0-8.0) Ur Specific [place] 1.020 (1.005-1.025) Urine Protein NEG (NEG-TRACE) MG/DL Urine Glucose (UA) NEG (NEG) MG/DL Urine Ketones NEG (NEG) MG/DL Urine Blood NEG (NEG) Urine Nitrite NEG (NEG) Ur Leukocyte Esterase 1+ H (NEG) Urine Test (NEGATIVE) 05/26/22 Range/Units 02:38 WBC (4.8-10.8) X10*3/uL RBC (4.20-5.50) X10*6/uL Hgb (12.0-16.0) g/dl Hct (37.0-47.0) % MCV (80.0-98.0) fL MCH (27.0-33.0) pg MCHC (31.0-35.0) g/dl RDW (11.0-16.0) % Plt Count (160-400) X10*3/uL MPV (9.4-12.3) fL Immature Gran % (Auto) (0.0-0.4) % Neut % (Auto) (45-73) % Lymph % (Auto) (20-40) % [place] % (Auto) (2-11) % Eos % (Auto) (0-4) % Baso % (Auto) (0-2) % Lymph # (Auto) (1.2-4.9) X10*3/uL [place] # (Auto) (0.1-1.2) X10*3/uL Eos # (Auto) (0.0-0.4) X10*3/uL Baso # (Auto) (0.0-0.2) X10*3/uL Abs Immat Gran (auto) (0.00-0.03) X10*3/uL Absolute Neuts (auto) (2.0-8.3) x10*3/uL Absolute Nucleated RBC (0.0-0.012) X10*3/uL Nucleated RBC % (auto) (0.0-0.2) /100WBC Sodium (135-145) mmol/L Potassium (3.3-5.1) mmol/L Chloride (96-108) mmol/L Carbon Dioxide (22-29) mmol/L Anion Gap (12-20) BUN (9-16) mg/dL Creatinine (0.5-1.4) mg/dL Estim Creat Clear Calc Estimated GFR Random Glucose (60-115) mg/dL Calcium (8.4-10.2) mg/dL Total Bilirubin (0.0-1.0) mg/dL AST (5-31) U/L ALT (0-31) U/L Alkaline Phosphatase (39-117) U/L Total Protein (6.5-8.0) g/dL Albumin (3.5-5.0) g/dL Lipase (8-78) U/L Urine Color Urine Appearance Urine pH (5.0-8.0) Ur Specific [place] (1.005-1.025) Urine Protein (NEG-TRACE) MG/DL Urine Glucose (UA) (NEG) MG/DL Urine Ketones (NEG) MG/DL Urine Blood (NEG) Urine Nitrite (NEG) Ur Leukocyte Esterase (NEG) Urine Test NEGATIVE (NEGATIVE) Discharge Plan Discharge Clinical Impression: Nausea Abdominal pain Qualifiers: Abdominal location: periumbilical Qualified Code(s): R10.33 - Periumbilical pain Patient Disposition: Home, Self-Care Instructions: Acute Nausea and Vomiting (ED), Abdominal Pain (ED) Additional Instructions: return to ED for any worsening symptoms or concerns please follow up with GI doctor Prescriptions: New ondansetron 4 mg tablet,disintegrating 4 mg PO Q8H PRN (Reason: nausea and vomiting) Qty: 20 0RF No Action ondansetron HCl [Zofran] 4 mg tablet 4 mg PO Q8H PRN (Reason: nausea and vomiting) Qty: 14 0RF dicyclomine 20 mg tablet 20 mg PO BID Qty: 20 0RF metoclopramide HCl [Reglan] 10 mg tablet 10 mg PO Q6H PRN (Reason: nausea and vomiting) Qty: 30 0RF naproxen 500 mg tablet 500 mg PO BID PRN (Reason: pain) 10 Days Qty: 20 0RF okroqoyufy-xhcfosxkqkotq-rmsd [Fioricet] 50-300-40 mg capsule 1 cap PO Q6H PRN (Reason: pain) 4 Days Qty: 16 0RF Rx Instructions: headache cephalexin 500 mg capsule 500 mg PO TID 7 Days Qty: 21 0RF ibuprofen 600 mg tablet 600 mg PO Q6H PRN (Reason: pain) Qty: 30 0RF cefuroxime axetil 250 mg tablet 250 mg PO BID 7 Days Qty: 14 0RF phenazopyridine [Pyridium] 100 mg tablet 200 mg PO TID 2 Days Qty: 6 0RF Referrals: Angela Pérez, [employer] [Nurse Practitioner] - 2 weeks (if not better) Stand Alone Forms: Work/School Release
[2022-05-26 02:07] LABS: Alanine Aminotransferase 17 U/L (0-31); Albumin Level 4.4 g/dL (3.5-5.0); Alkaline Phosphatase 63 U/L (39-117); Anion Gap 14 (12-20); Aspartate Amino Transferase 19 U/L (5-31); Bilirubin Total 0.3 mg/dL (0.0-1.0); Blood Urea Nitrogen 9 mg/dL (9-16); Calcium 9.3 mg/dL (8.4-10.2); Carbon Dioxide 25 mmol/L (22-29); Chloride 105 mmol/L (96-108); Creatinine Clr Calc Pharmacy 79.5; Estimated Glomerular Filt Rate > 60; Glucose Random 98 mg/dL (60-115); Potassium 4.1 mmol/L (3.3-5.1); Sodium 140 mmol/L (135-145); Total Protein 7.1 g/dL (6.5-8.0)
[2022-05-26 02:32] LABS: Lipase 33 U/L (8-78)
[2022-05-26 02:48] LABS: Appearance Urine CLEAR; Color Urine YELLOW; Glucose Urine UA NEG (NEG); Leukocyte Esterase Urine 1+ (NEG); Nitrite Urine NEG (NEG); UACC Culture Trigger YES; Urine Blood NEG (NEG); Urine Ketones NEG (NEG); Urine Protein NEG (NEG-TRACE)
[2022-05-26 02:51] LABS: UPreg QC Valid YES; Urine Pregnancy NEGATIVE (NEGATIVE)
[2022-05-26 02:57] LABS: Bacteria Urine 1+ /LPF; Squamous Epithelial Cell Urine 2+ /LPF
[2022-05-26] MEDS: Ondansetron ODT 4 MG TAB.RAPDIS TRANSLINGU (02:57)
== END 2022-05-26 03:10 | disposition home or self-care (01) ==
PROVIDERS: Emergency Provider Emergency Medicine
DX: R10.33 Periumbilical pain (principal); R11.0 Nausea
CPT/HCPCS: 36415; 80053; 81001; 81025; 83690; 85025; 87086; 99283; 99284

== ENCOUNTER 2023-02-24 16:29 | Emergency (ER) | payer MEDICAID, SELFPAY ==
--- NOTE | ~2023-02-24 | CT_ITS ---
EXAMINATION: CT ABDOMEN AND PELVIS WITHOUT CONTRAST CLINICAL INFORMATION: 22-year-old female with abdominal pain and bloating COMPARISON: 05/15/2022 TECHNIQUE: Multidetector volumetric imaging was performed from the superior aspect of the liver through the pubic symphysis. Sagittal and coronal reformatted images were obtained on the technologist's workstation. This CT examination was performed using dose optimization techniques as appropriate, variously including the following: *Automated exposure control *Adjustment of mA and/or kV according to patient size (this includes techniques or standardized protocols for targeted exams where dose is matched to indication/reason for exam; i.e. extremities or head) *Use of iterative reconstruction technique DLP: 282 mGy-cm FINDINGS: LUNG BASES: The visualized lung bases are unremarkable. LIVER, GALLBLADDER, AND BILIARY TREE: The liver is normal in size, shape, and attenuation. No focal hepatic lesion or biliary ductal dilatation is present. The gallbladder is unremarkable with no evidence of radiopaque gallstones, gallbladder wall thickening, or obvious pericholecystic inflammatory changes. PANCREAS: Unremarkable. SPLEEN: Unremarkable. ADRENAL GLANDS: Unremarkable. KIDNEYS AND URETERS: The kidneys are normal in size, shape, and attenuation. No hydronephrosis, hydroureter, or calculi seen. No perinephric stranding. BLADDER: Unremarkable. GASTROINTESTINAL TRACT: The small and large bowel are unremarkable. The appendix is unremarkable. There is large amount of fecal debris and gas seen in the colon. Appendix visualized and is normal. Limited evaluation of mesentery is unremarkable. Examination is limited due to the noncontrast technique. Pulsatility of mesenteric fat ABDOMINAL WALL: No significant hernia is appreciated. LYMPH NODES: Normal. VASCULAR: Unremarkable. PELVIC VISCERA: Unremarkable. OSSEOUS STRUCTURES: Unremarkable. CT/CT abdomen pelvis wo IV con IMPRESSION: No significant abnormality. Technically limited study Fleischner guidelines were followed.
[2023-02-24 17:13] VITALS: BP 111/46; PULSE 98; RESP 18; TEMP 37.1; O2SAT 97; BMI 20.8
--- NOTE | 2023-02-24 17:14 | ED_ITS ---
HPI - General Adult General Chief complaint: Abdominal Pain Stated complaint: nausea, vomiting, abdominal pain for a week Time Seen by Provider: 02/24/23 19:28 Source: patient, RN notes reviewed and old records reviewed Mode of arrival: ambulatory Limitations: no limitations History of Present Illness HPI narrative: 22-year-old female who denies any past medical history presents for evaluation of abdominal pain, vomiting. Patient reports her symptoms started about 5 days ago. Her pain is lower abdomen. She is unsure when her last menstrual period was in does not know if she could be Denies any fevers, chills, cough, shortness of breath Denies any diarrhea, black or bloody stool. Denies any history abdominal surgeries. She denies any difficulty urinating, abnormal vaginal bleeding or discharge Related Data Previous Rx's Medication Instructions Recorded dicyclomine 20 mg tablet 20 mg PO BID Abdominal pain #20 03/19/21 tabs metoclopramide HCl 10 mg tablet 10 mg PO Q6H PRN nausea and 03/19/21 (Reglan) vomiting #30 tabs ondansetron HCl 4 mg tablet 4 mg PO Q8H PRN nausea and 03/19/21 (Zofran) vomiting #14 tabs hawashfimb-dfzqoawecretc-iyipuosj 1 cap PO Q6H PRN pain 4 days #16 09/27/21 50 mg-300 mg-40 mg capsule caps (Fioricet) naproxen 500 mg tablet 500 mg PO BID PRN pain 10 days #20 09/27/21 tabs cephalexin 500 mg capsule 500 mg PO TID 7 days #21 caps 04/28/22 ibuprofen 600 mg tablet 600 mg PO Q6H PRN pain #30 tabs 04/28/22 cefuroxime axetil 250 mg tablet 250 mg PO BID 7 days #14 tabs 05/15/22 phenazopyridine 100 mg tablet 200 mg PO TID 2 days #6 tabs 05/15/22 (Pyridium) ondansetron 4 mg disintegrating 4 mg PO Q8H PRN nausea and 05/26/22 tablet vomiting #20 tabs nitrofurantoin 100 mg PO Q12H 5 days #10 caps 02/24/23 monohydrate/macrocrystals 100 mg capsule (Macrobid) ondansetron 4 mg disintegrating 4 mg PO Q8H PRN nausea and 02/24/23 tablet vomiting #20 tabs Allergies Allergy/AdvReac Type Severity Reaction Status Date / Time No Known Allergies Allergy Verified 02/24/23 17:18 Review of Systems Constitutional: Constitutional: Reports as per HPI, Denies chills, Denies fatigue, Denies fever(s) and Denies headache(s) ENT: Denies headache(s) Cardiovascular: Cardiovascular: Denies chest pain and Denies dyspnea Respiratory: Respiratory: Denies cough and Denies dyspnea Gastrointestinal: Gastrointestinal: Reports abdominal pain, Denies constipation, Denies diarrhea, Reports nausea and Reports vomiting Genitourinary: Genitourinary: Denies dysuria Neurologic: Denies headache(s) and Denies focal weakness Endocrine: Endocrine: Denies fatigue PMFSH Past Medical History Medical History Abscess Social History Social History Patient Tobacco Use Status: Never used Tobacco Advance Directives: No Advance Directives Information Provided: No Physical Exam ED Vital Signs: Vital Signs - 24 hr 02/24/23 17:13 Temperature 98.8 F Pulse Rate 98 Respiratory Rate 18 Blood Pressure 111/46 L Pulse Oximetry 97 Oxygen Delivery Method Room Air BMI result Body Mass Index 20.8 Const General: healthy appearing, comfortable, no acute distress, alert and awake Nutritional Appearance: well nourished Orientation/consciousness: patient oriented x3 HENMT Head: Yes normocephalic and Yes atraumatic Throat: Yes posterior oropharynx normal Eyes Eyelids: Yes eyelids normal Conjunctivae: conjunctivae normal Sclerae: sclerae normal Corneas: corneas normal Pupils: Equal, round and reactive pupils present EOM: EOMs intact bilaterally Neck Neck: Yes full ROM Resp Effort & Inspection: normal respiratory effort, able to speak in complete [place] and not labored Cardio Rate: regular rate Rhythm: regular rhythm GI Inspection: No distended Palpation (GI): Soft to palpation, not firm, Tenderness to palpation present (GI) (Patient has mid to lower abdominal tenderness without guarding. ) suprapub icly, no guarding and not rigid Auscultation: normoactive bowel sounds Skin General skin exam: no rashes or lesions noted and elasticity normal Neuro General: patient oriented x3 Cranial nerves: Yes Equal, round and reactive pupils present and Yes Bilaterally intact EOM present Cognition (Neuro): normal cognition Extrem Other: Moving all extremities well without any obvious deformities Course Course Course Narrative: This is an RME: Additional HPI, ROS, PE not included below will be deferred to primary provider. 22 year old female presents w/ nausea, lower abd pain 6/10and bloating X 1 week. LMP unclear. Unsure if Plan- imaging, ua, labs Reevaluation(s) Reevaluation #1: UA consistent with UTI which will be treated. Will discharge patient with Zofran Time: 20:45 Medical Decision Making Medical Decision Making MDM Narrative: 22th female presents for evaluation of lower abdominal pain with vomiting. Serum hCG is negative. Labs are without significant abnormality. She has mild tenderness without guarding. Abdominal exam is reassuring without with [place]. Still awaiting a UA. The patient denies any symptoms. A CT scan was ordered in triage, awaiting results. At the time of my evaluation the patient states that she is not currently nauseous. Therefore antiemetics are withheld Differential Diagnosis Abdominal pain Gastritis Acute appendicitis Gastroenteritis UTI Cystitis Lab Data [facility] Lab Attestation statement: I reviewed the patient's lab results. 02/24/23 18:03 02/24/23 18:02 Labs: Lab Results 02/24/23 02/24/23 02/24/23 Range/Units 18:02 18:02 18:03 WBC 6.5 (4.8-10.8) X10*3/uL RBC 4.12 L (4.20-5.50) X10*6/uL Hgb 12.3 (12.0-16.0) g/dl Hct 37.3 (37.0-47.0) % MCV 90.5 (80.0-98.0) fL MCH 29.9 (27.0-33.0) pg MCHC 33.0 (31.0-35.0) g/dl RDW 12.2 (11.0-16.0) % Plt Count 224 (160-400) X10*3/uL MPV 10.3 (9.4-12.3) fL Immature Gran % (Auto) 0.5 H (0.0-0.4) % Neut % (Auto) 58.3 (45-73) % Lymph % (Auto) 31.9 (20-40) % [place] % (Auto) 8.2 (2-11) % Eos % (Auto) 0.5 (0-4) % Baso % (Auto) 0.6 (0-2) % Lymph # (Auto) 2.1 (1.2-4.9) X10*3/uL [place] # (Auto) 0.5 (0.1-1.2) X10*3/uL Eos # (Auto) 0.0 (0.0-0.4) X10*3/uL Baso # (Auto) 0.0 (0.0-0.2) X10*3/uL Abs Immat Gran (auto) 0.03 (0.00-0.03) X10*3/uL Absolute Neuts (auto) 3.8 (2.0-8.3) x10*3/uL Absolute Nucleated RBC 0.000 (0.0-0.012) X10*3/uL Nucleated RBC % (auto) 0.0 (0.0-0.2) /100WBC Sodium 140 (135-145) mmol/L Potassium 3.5 (3.3-5.1) mmol/L Chloride 107 (96-108) mmol/L Carbon Dioxide 25 (22-29) mmol/L Anion Gap 12 (12-20) BUN 10 (9-16) mg/dL Creatinine 0.76 (0.5-1.4) mg/dL Estim Creat Clear Calc 86.1 Estimated GFR > 60 Random Glucose 98 (60-115) mg/dL Calcium 9.2 (8.4-10.2) mg/dL Magnesium 2.0 (1.6-2.6) mg/dL Total Bilirubin 0.4 (0.0-1.0) mg/dL AST 25 (5-31) U/L ALT 16 (0-31) U/L Alkaline Phosphatase 79 (39-117) U/L Total Protein 6.8 (6.5-8.0) g/dL Albumin 4.2 (3.5-5.0) g/dL Lipase 31 (8-78) U/L Beta HCG, Quant < 2 mIU/mL Urine Color Urine Appearance Urine pH (5.0-9.0) Ur Specific [place] (1.005-1.025) Urine Protein (Neg-Trace) mg/dL Urine Glucose (UA) (Negative) mg/dL Urine Ketones (Negative) mg/dL Urine Blood (Negative) Urine Nitrite (Negative) Ur Leukocyte Esterase (Negative) Urine RBC (0-2) /HPF Urine WBC (0-5) /HPF Ur Squamous Epith Cells (0-2) /HPF Urine Bacteria (None Seen) Hyaline Casts (0-2) /LPF COVID-19 (ORTIZ) Negative (Negative) COVID-19 Clin Com See Note 02/24/23 Range/Units 20:08 WBC (4.8-10.8) X10*3/uL RBC (4.20-5.50) X10*6/uL Hgb (12.0-16.0) g/dl Hct (37.0-47.0) % MCV (80.0-98.0) fL MCH (27.0-33.0) pg MCHC (31.0-35.0) g/dl RDW (11.0-16.0) % Plt Count (160-400) X10*3/uL MPV (9.4-12.3) fL Immature Gran % (Auto) (0.0-0.4) % Neut % (Auto) (45-73) % Lymph % (Auto) (20-40) % [place] % (Auto) (2-11) % Eos % (Auto) (0-4) % Baso % (Auto) (0-2) % Lymph # (Auto) (1.2-4.9) X10*3/uL [place] # (Auto) (0.1-1.2) X10*3/uL Eos # (Auto) (0.0-0.4) X10*3/uL Baso # (Auto) (0.0-0.2) X10*3/uL Abs Immat Gran (auto) (0.00-0.03) X10*3/uL Absolute Neuts (auto) (2.0-8.3) x10*3/uL Absolute Nucleated RBC (0.0-0.012) X10*3/uL Nucleated RBC % (auto) (0.0-0.2) /100WBC Sodium (135-145) mmol/L Potassium (3.3-5.1) mmol/L Chloride (96-108) mmol/L Carbon Dioxide (22-29) mmol/L Anion Gap (12-20) BUN (9-16) mg/dL Creatinine (0.5-1.4) mg/dL Estim Creat Clear Calc Estimated GFR Random Glucose (60-115) mg/dL Calcium (8.4-10.2) mg/dL Magnesium (1.6-2.6) mg/dL Total Bilirubin (0.0-1.0) mg/dL AST (5-31) U/L ALT (0-31) U/L Alkaline Phosphatase (39-117) U/L Total Protein (6.5-8.0) g/dL Albumin (3.5-5.0) g/dL Lipase (8-78) U/L Beta HCG, Quant mIU/mL Urine Color Yellow Urine Appearance Clear Urine pH 7.5 (5.0-9.0) Ur Specific [place] 1.025 (1.005-1.025) Urine Protein Negative (Neg-Trace) mg/dL Urine Glucose (UA) Negative (Negative) mg/dL Urine Ketones Trace (Negative) mg/dL Urine Blood Negative (Negative) Urine Nitrite Positive H (Negative) Ur Leukocyte Esterase Trace H (Negative) Urine RBC 3-5 H (0-2) /HPF Urine WBC 6-10 H (0-5) /HPF Ur Squamous Epith Cells 6-10 (0-2) /HPF Urine Bacteria 4+ (None Seen) Hyaline Casts 0-2 (0-2) /LPF COVID-19 (ORTIZ) (Negative) COVID-19 Clin Com Discharge Plan Discharge Clinical Impression: Vomiting, Urinary tract infection Patient Disposition: Home, Self-Care Instructions: Urinary Tract Infection in Women (ED) Additional Instructions: Take Zofran as needed for nausea and vomiting Take Macrobid twice daily for the next 5 days to treat urinary tract infection Hydrate well, small steps at a time Follow-up with your primary doctor Prescriptions: New nitrofurantoin monohyd/m-cryst [Macrobid] 100 mg capsule 100 mg PO Q12H 5 Days Qty: 10 0RF Rx Instructions: must administer with a meal/food ondansetron 4 mg tablet,disintegrating 4 mg PO Q8H PRN (Reason: nausea and vomiting) Qty: 20 0RF No Action ondansetron HCl [Zofran] 4 mg tablet 4 mg PO Q8H PRN (Reason: nausea and vomiting) Qty: 14 0RF dicyclomine 20 mg tablet 20 mg PO BID Qty: 20 0RF metoclopramide HCl [Reglan] 10 mg tablet 10 mg PO Q6H PRN (Reason: nausea and vomiting) Qty: 30 0RF naproxen 500 mg tablet 500 mg PO BID PRN (Reason: pain) 10 Days Qty: 20 0RF pfkocasded-dyjuythtvlilt-zrsp [Fioricet] 50-300-40 mg capsule 1 cap PO Q6H PRN (Reason: pain) 4 Days Qty: 16 0RF Rx Instructions: headache ondansetron 4 mg tablet,disintegrating 4 mg PO Q8H PRN (Reason: nausea and vomiting) Qty: 20 0RF cephalexin 500 mg capsule 500 mg PO TID 7 Days Qty: 21 0RF ibuprofen 600 mg tablet 600 mg PO Q6H PRN (Reason: pain) Qty: 30 0RF cefuroxime axetil 250 mg tablet 250 mg PO BID 7 Days Qty: 14 0RF phenazopyridine [Pyridium] 100 mg tablet 200 mg PO TID 2 Days Qty: 6 0RF
[2023-02-24 18:08] LABS: MANUAL DIFF FLAG NO
[2023-02-24 18:12] LABS: Basophils Percent Auto 0.6 % (0-2); Eosinophils Percent Auto 0.5 % (0-4); Hematocrit 37.3 % (37.0-47.0); Hemoglobin 12.3 g/dl (12.0-16.0); Imm Gran Abs Auto 0.03 X10*3/uL (0.00-0.03); Imm Gran Pct Auto 0.5 % (0.0-0.4); Lymphocytes Absolute Auto 2.1 X10*3/uL (1.2-4.9); Lymphocytes Percent Auto 31.9 % (20-40); Mean Corpuscular Hemoglobin 29.9 pg (27.0-33.0); Mean Corpuscular Volume 90.5 fL (80.0-98.0); Mean Platelet Volume 10.3 fL (9.4-12.3); Monocytes Absolute Auto 0.5 X10*3/uL (0.1-1.2); Monocytes Percent Auto 8.2 % (2-11); Neutrophils Absolute Auto 3.8 x10*3/uL (2.0-8.3); Neutrophils Percent Auto 58.3 % (45-73); Platelet Count 224 X10*3/uL (160-400); Red Blood Count 4.12 X10*6/uL (4.20-5.50); Red Cell Distribution Width 12.2 % (11.0-16.0); White Blood Count 6.5 X10*3/uL (4.8-10.8)
[2023-02-24 18:20] LABS: COVID-19 Test Negative (Negative); IDNOW Serial# BCCEAD1C
[2023-02-24 18:33] LABS: Alanine Aminotransferase 16 U/L (0-31); Albumin Level 4.2 g/dL (3.5-5.0); Alkaline Phosphatase 79 U/L (39-117); Anion Gap 12 (12-20); Aspartate Amino Transferase 25 U/L (5-31); Bilirubin Total 0.4 mg/dL (0.0-1.0); Blood Urea Nitrogen 10 mg/dL (9-16); Calcium 9.2 mg/dL (8.4-10.2); Carbon Dioxide 25 mmol/L (22-29); Chloride 107 mmol/L (96-108); Creatinine Clr Calc Pharmacy 86.1; Estimated Glomerular Filt Rate > 60; Glucose Random 98 mg/dL (60-115); Lipase 31 U/L (8-78); Potassium 3.5 mmol/L (3.3-5.1); Sodium 140 mmol/L (135-145); Total Protein 6.8 g/dL (6.5-8.0)
[2023-02-24 18:37] LABS: HCG Quantitative < 2 mIU/mL
[2023-02-24 20:18] LABS: Appearance Urine Clear; Color Urine Yellow; Glucose Urine UA Negative (Negative); Leukocyte Esterase Urine Trace (Negative); Nitrite Urine Positive (Negative); PH 7.5 (5.0-9.0); Specific Gravity - Urine 1.025 (1.005-1.025); UMIC TRIGGER UACC YES; Urine Blood Negative (Negative); Urine Ketones Trace mg/dL (Negative); Urine Protein Negative (Neg-Trace)
[2023-02-24 20:35] LABS: Bacteria Urine 4+ (None Seen); Hyaline Casts Urine 0-2 /LPF (0-2); UACC Culture Trigger YES
== END 2023-02-24 20:57 | disposition home or self-care (01) ==
PROVIDERS: Physician Assistant; Emergency Provider Emergency Medicine Emergency Medical Services
DX: N39.0 Urinary tract infection, site not specified (principal); R11.2 Nausea with vomiting, unspecified; Z20.822 Contact with and (suspected) exposure to COVID-19; Z20.828 Contact with and (suspected) exposure to other viral communicable diseases; Z79.899 Other long term (current) drug therapy
CPT/HCPCS: 74176; 80053; 81001; 83690; 83735; 84702; 85025; 87086; 87088; 87186; 87635; 99282; 99284

== ENCOUNTER 2023-03-25 13:37 | Emergency (ER) | payer MEDICAID, SELFPAY ==
[2023-03-25 14:37] VITALS: BP 113/56; PULSE 73; RESP 16; TEMP 36.8; O2SAT 98; BMI 20.9
--- NOTE | 2023-03-25 14:37 | ED_ITS ---
HPI - General Adult General Chief complaint: Upper Respiratory Symptoms Stated complaint: multiple issues Time Seen by Provider: 03/25/23 15:53 Source: patient Mode of arrival: ambulatory Limitations: no limitations History of Present Illness HPI narrative: 22-year-old female presents to the ER for evaluation of feeling unwell since yesterday. She states for the last 4 days she has watery runny eyes, more so on the left side. She also reports yesterday she developed subjective fevers and chills along with myalgias, headache, sore throat. She reports some nausea as well but denies any diarrhea, abdominal pain, vomiting. No urinary symptoms. No known sick contacts. She states she also has a slight cough and runny nose. She denies any history of seasonal allergies. MD complaint: Viral URI symptoms Onset (ago): day(s) Location: head, face, mouth and chest Radiation: non-radiation Quality: aching Pain Consistency: intermittent Relieving factors: none Exacerbating factors: none Associated symptoms: cough, fever/chills, headaches, malaise and weakness Treatments prior to arrival: none Related Data Previous Rx's Medication Instructions Recorded dicyclomine 20 mg tablet 20 mg PO BID Abdominal pain #20 03/19/21 tabs metoclopramide HCl 10 mg tablet 10 mg PO Q6H PRN nausea and 03/19/21 (Reglan) vomiting #30 tabs ondansetron HCl 4 mg tablet 4 mg PO Q8H PRN nausea and 03/19/21 (Zofran) vomiting #14 tabs ulvyfnfgjj-hiqebztdetutc-jvvvrhyp 1 cap PO Q6H PRN pain 4 days #16 09/27/21 50 mg-300 mg-40 mg capsule caps (Fioricet) naproxen 500 mg tablet 500 mg PO BID PRN pain 10 days #20 09/27/21 tabs cephalexin 500 mg capsule 500 mg PO TID 7 days #21 caps 04/28/22 ibuprofen 600 mg tablet 600 mg PO Q6H PRN pain #30 tabs 04/28/22 cefuroxime axetil 250 mg tablet 250 mg PO BID 7 days #14 tabs 05/15/22 phenazopyridine 100 mg tablet 200 mg PO TID 2 days #6 tabs 05/15/22 (Pyridium) ondansetron 4 mg disintegrating 4 mg PO Q8H PRN nausea and 05/26/22 tablet vomiting #20 tabs nitrofurantoin 100 mg PO Q12H 5 days #10 caps 02/24/23 monohydrate/macrocrystals 100 mg capsule (Macrobid) ondansetron 4 mg disintegrating 4 mg PO Q8H PRN nausea and 02/24/23 tablet vomiting #20 tabs Allergies Allergy/AdvReac Type Severity Reaction Status Date / Time No Known Allergies Allergy Verified 03/25/23 14:37 Review of Systems Review of Systems: Yes all other systems are reviewed and are negative [facility] Past Medical History Medical History Abscess Social History Social History Alcohol intake: current Alcohol intake frequency: holidays/special occasions only Patient Tobacco Use Status: Never used Tobacco Smoked in Last 30 Days: No Use of substances other than those prescribed or required for medical reasons: No Patient : No Physical Exam ED Vital Signs: Vital Signs - 24 hr 03/25/23 14:37 Temperature 98.2 F Pulse Rate 73 Respiratory Rate 16 Blood Pressure 113/56 L Pulse Oximetry 98 Oxygen Delivery Method Room Air BMI result Body Mass Index 20.9 Appearance: Alert. Oriented X3. No acute distress. Head: normocephalic, atraumatic. Eyes: Pupils equal, round and reactive to light. ENT: Pharynx normal. No tonsillar swelling or exudate. Neck: Normal inspection. Neck supple. no cervical lymphadenopathy CVS: Normal heart rate and rhythm. Pulses normal. Respiratory: No respiratory distress. Breath sounds normal. Abdomen: Soft and nontender. +BS x4 Skin: Skin warm and dry. Normal skin color. Normal skin turgor. No rashes. Extremities: No lower extremity edema. No joint swelling. Neuro/psych: Oriented X 3. nonfocal, grossly normal Normal speech and cognition. Course Course Course Narrative: This is an RME: Additional HPI, ROS, PE not included below will be deferred to primary provider. This is a 73-am[age]lt[age]-female presenting to the emergency department with complaints of sore throat, subjective fevers, chills, and body aches x several days. No sick contacts. VSS. Pt stable to return to the [facility] until seen by provider in main ER. Plan: Strep and COVID swab ordered. Medical Decision Making Medical Decision Making [facility] Narrative: 22-year-old female presents to the ER for evaluation of runny nose, watery eyes, chills, subjective fevers, sore throat, headaches, body aches and cough for the last couple of days. On arrival to the ER her vital signs are stable. Her physical exam is unremarkable. She has no known sick contacts. Clinical exam and presentation was consistent with viral illness. She tested negative for COVID, flu, RSV as well as strep throat today. We discussed supportive care and management of viral illnesses. She is stable for discharge home. Patient agrees with plan all questions were answered. Differential Diagnosis Differential Diagnoses: The differential diagnosis associated with the presen tation includes strep, covid, flu, rsv, other viral syndrome, bronchitis, pneumonia, seasonal allergies Lab Data [facility] Lab Attestation statement: I reviewed the patient's lab results. Negative swabs Labs: Lab Results 03/25/23 03/25/23 Range/Units 15:11 15:11 Influenza Type A (PCR) NEGATIVE (Negative) Influenza Type B (PCR) NEGATIVE (Negative) RSV RNA Qual (PCR) NEGATIVE (Negative) SARS-CoV-2 RNA (RT-PCR) NEGATIVE (Negative) S. pyogenes GrpA BLANCO Negative (Negative) External Record Review External record reviewed: Outpatient record and Prior outpatient labs Critical Care Time Critical Care Time Critical Care Time: No Discharge Plan Discharge Clinical Impression: Acute viral syndrome Patient Disposition: Home, Self-Care Instructions: Viral Syndrome (ED) Additional Instructions: You tested negative for COVID-19, influenza, RSV as well as strep throat. Your vital signs were in normal. Your physical exam was unremarkable. Your symptoms are most consistent with a viral etiology. Treatment is rest and supportive care. Take reaa-[id number] cold and flu medications as needed for your symptoms. Rest and make sure drinking plenty of fluids. Take Motrin and Tylenol as needed for body aches, fevers and pain. If you develop new or worsening symptoms call 911 or come back to the ER for further evaluation. Prescriptions: No Action ondansetron HCl [Zofran] 4 mg tablet 4 mg PO Q8H PRN (Reason: nausea and vomiting) Qty: 14 0RF dicyclomine 20 mg tablet 20 mg PO BID Qty: 20 0RF metoclopramide HCl [Reglan] 10 mg tablet 10 mg PO Q6H PRN (Reason: nausea and vomiting) Qty: 30 0RF naproxen 500 mg tablet 500 mg PO BID PRN (Reason: pain) 10 Days Qty: 20 0RF lmbuqnfwlw-huwpdlfdurgrl-yyqy [Fioricet] 50-300-40 mg capsule 1 cap PO Q6H PRN (Reason: pain) 4 Days Qty: 16 0RF Rx Instructions: headache ondansetron 4 mg tablet,disintegrating 4 mg PO Q8H PRN (Reason: nausea and vomiting) Qty: 20 0RF cephalexin 500 mg capsule 500 mg PO TID 7 Days Qty: 21 0RF ibuprofen 600 mg tablet 600 mg PO Q6H PRN (Reason: pain) Qty: 30 0RF cefuroxime axetil 250 mg tablet 250 mg PO BID 7 Days Qty: 14 0RF phenazopyridine [Pyridium] 100 mg tablet 200 mg PO TID 2 Days Qty: 6 0RF nitrofurantoin monohyd/m-cryst [Macrobid] 100 mg capsule 100 mg PO Q12H 5 Days Qty: 10 0RF Rx Instructions: must administer with a meal/food ondansetron 4 mg tablet,disintegrating 4 mg PO Q8H PRN (Reason: nausea and vomiting) Qty: 20 0RF
--- NOTE | 2023-03-25 15:50 | PC.NURSE ---
patient a&ox3, pt c/o 4-03/26 generalized pain- sore throat/headache, swabs obtained, awaiting provider, will continue to monitor.
[2023-03-25 15:57] LABS: Influenza A PCR NEGATIVE (Negative); Influenza B PCR NEGATIVE (Negative); Resp Syncy Virus RNA Qual PCR NEGATIVE (Negative); SARS COV2 PCR INHOUSE NEGATIVE (Negative)
[2023-03-25 16:03] LABS: IDNOW Serial# 08D9AD1C; Strep A Nucleic Acid Negative (Negative)
== END 2023-03-25 16:28 | disposition home or self-care (01) ==
LOC: HO.ED 16:32
PROVIDERS: Physician Assistant Medical; Emergency Provider Student in an Organized Health Care Education/Training Program
DX: B34.9 Viral infection, unspecified (principal); Z20.822 Contact with and (suspected) exposure to COVID-19; Z20.828 Contact with and (suspected) exposure to other viral communicable diseases; Z79.899 Other long term (current) drug therapy
CPT/HCPCS: 0241U; 87651; 99283

== ENCOUNTER 2023-10-03 15:42 | Emergency (ER) | payer MEDICAID, SELFPAY ==
[2023-10-03 15:48] VITALS: BP 128/66; PULSE 85; RESP 20; TEMP 36.9; O2SAT 99; BMI 20.8
--- NOTE | 2023-10-03 17:44 | ED.URI ---
HPI - URI/Sore Throat General Chief Complaint: Upper Respiratory Symptoms Stated Complaint: Body aches, nausea, cough Time Seen by Provider: 10/03/23 19:23 Source: patient and RN notes reviewed Mode of arrival: ambulatory Limitations: no limitations History of Present Illness HPI Narrative: This is a 22 year old female, presenting to the emergency department with complaints of cough, body aches, nausea, and fevers for the last three days. She states that she has had multiple family members that have tested positive for COVID. She has been taking over the counter medications with some relief period denies any chest pain, shortness of breath, abdominal pain, nausea, vomiting or diarrhea. No other complaints or concerns at this time. MD elicited complaint: fever and cough Onset (ago): day(s) Severity: moderate Description of mucous: clear Able to tolerate fluids by mouth: Yes Exacerbating factors: nothing Relieving factors: nothing Context: sick contacts Associated symptoms: fever, chills, myalgias, headache, cough and nausea Treatments prior to arrival: none Related Data Previous Rx's Medication Instructions Recorded dicyclomine 20 mg tablet 20 mg PO BID Abdominal pain #20 03/19/21 tabs metoclopramide HCl 10 mg tablet 10 mg PO Q6H PRN nausea and 03/19/21 (Reglan) vomiting #30 tabs ondansetron HCl 4 mg tablet 4 mg PO Q8H PRN nausea and 03/19/21 (Zofran) vomiting #14 tabs jgninfzbxm-oltrtdtarycsl-rjhzlhff 1 cap PO Q6H PRN pain 4 days #16 09/27/21 50 mg-300 mg-40 mg capsule caps (Fioricet) naproxen 500 mg tablet 500 mg PO BID PRN pain 10 days #20 09/27/21 tabs cephalexin 500 mg capsule 500 mg PO TID 7 days #21 caps 04/28/22 ibuprofen 600 mg tablet 600 mg PO Q6H PRN pain #30 tabs 04/28/22 cefuroxime axetil 250 mg tablet 250 mg PO BID 7 days #14 tabs 05/15/22 phenazopyridine 100 mg tablet 200 mg (2 x 100 mg) PO TID 2 days 05/15/22 (Pyridium) #6 tabs ondansetron 4 mg disintegrating 4 mg PO Q8H PRN nausea and 05/26/22 tablet vomiting #20 tabs nitrofurantoin 100 mg PO Q12H 5 days #10 caps 02/24/23 monohydrate/macrocrystals 100 mg capsule (Macrobid) ondansetron 4 mg disintegrating 4 mg PO Q8H PRN nausea and 02/24/23 tablet vomiting #20 tabs Allergies Allergy/AdvReac Type Severity Reaction Status Date / Time No Known Allergies Allergy Verified 03/25/23 14:37 Review of Systems Review of Systems: Yes all other systems are reviewed and are negative Constitutional: Constitutional: Reports as per [facility] Past Medical History Medical History Abscess Social History Social History Alcohol intake: current Alcohol intake frequency: holidays/special occasions only Patient Tobacco Use Status: Never used Tobacco Advance Directives: No Advance Directives Information Provided: No Physical Exam Vital Signs: Vital Signs: Last Vital Signs Temp 98.5 F 10/03/23 15:48 Pulse 85 10/03/23 15:48 Resp 20 10/03/23 15:48 BP 128/66 10/03/23 15:48 Pulse Ox 99 10/03/23 15:48 O2 Del Method Room Air 10/03/23 15:48 BMI result Body Mass Index 20.8 Const: General: cooperative, comfortable and no acute distress Orientation/consciousness: patient oriented x3 Limitations: no limitations HEENT: Head: Yes normal to inspection, Yes normocephalic and Yes atraumatic Ears: hearing grossly normal bilaterally and TM's normal bilaterally General nose exam: Normal external nose present Face and sinus: Yes normal facial exam Mouth: Normal oral and palatal mucosa present, oropharynx normal and moist mucous membranes Throat: Yes posterior oropharynx normal, Yes tonsils normal and Yes uvula midline Eyes: General: appearance normal, both eyes and all related structures Eyelids: Yes eyelids normal Conjunctivae: conjunctivae normal Sclerae: sclerae normal Pupils: Equal, round and reactive pupils present EOM: EOMs intact bilaterally Neck: Neck: Yes normal visual inspection, Yes full ROM and Yes no lymphadenopathy Lymphatic: no lymphadenopathy noted Chest: Chest palpation & inspection: normal inspection of the chest Resp: Effort & Inspection: normal respiratory effort and able to speak in complete sentences Auscultation: clear to auscultation bilaterally, no crackles, no rales, no rhonchi and no wheezes Cardio: Rate: regular rate Rhythm: regular rhythm Heart sounds: S1 normal heart sound present and S2 normal heart sound present GI: Inspection: Yes normal to inspection Skin: General skin exam: no rashes or lesions noted Trauma: no lacerations or abrasions Wounds: no wounds Neuro: General: patient oriented x3 and moves all extremities Cranial nerves: Yes Equal, round and reactive pupils present Extrem: General: Yes normal to inspection Right upper extremity: normal to inspection Left upper extremity: normal to inspection Right lower extremity: normal to inspection Left lower extremity: normal to inspection Course Course Course Narrative: This is an RME: Additional HPI, ROS, PE not included below will be deferred to primary provider. This is a 22-year-old female presenting to the emergency department for complaints of cough, body aches, nausea, headaches, and fevers. Patient states that she has been exposed to people with COVID. Vital signs stable. Plan; viral swabs Medical Decision Making Medical Decision Making [facility] Narrative: This is a 22 year old female, presenting to the emergency department with complaints of cough, body aches, nausea, and fevers for the last three days. On arrival, patient non-toxic appearing, speaking in full sentences, lungs clear auscultation bilaterally. Vital signs within normal limits. Viral swabs were collected, patient positive for COVID. Symptoms consistent with COVID like infection. She has no chest pain or shortness of breath. Patient does not require any further workup. Discharge patient with close return precautions. Patient understands agrees with planned. Patient stable for discharge. Differential Diagnosis Differential Diagnoses: The differential diagnosis associated with the presentation includes covid, bronchitis, pneumonia, URI Lab Data [facility] Lab Attestation statement: I reviewed the patient's lab results. covid + Labs: Lab Results 10/03/23 Range/Units 18:12 Influenza Type A (PCR) NEGATIVE (Negative) Influenza Type B (PCR) NEGATIVE (Negative) RSV RNA Qual (PCR) NEGATIVE (Negative) SARS-CoV-2 RNA (RT-PCR) POSITIVE A (Negative) Discharge Plan Discharge Clinical Impression: COVID-19 Patient Disposition: Home, Self-Care Instructions: COVID-19 (Coronavirus Disease 2019) (ED) Additional Instructions: You were seen in the emergency department due to cough, body aches, headaches. you tested positive for COVID in the department today. Please rest, drink plenty of fluids and alternate between Tylenol and ibuprofen as needed for symptoms. Please limit exposure to other people as you are very contagious. Please follow all CDC recommendations in regards to quarantine. If any new or worsening symptoms occur including but not limited to chest pain, shortness breast, please return for re-evaluation. Prescriptions: No Action ondansetron HCl [Zofran] 4 mg tablet 4 mg PO Q8H PRN (Reason: nausea and vomiting) Qty: 14 0RF dicyclomine 20 mg tablet 20 mg PO BID Qty: 20 0RF metoclopramide HCl [Reglan] 10 mg tablet 10 mg PO Q6H PRN (Reason: nausea and vomiting) Qty: 30 0RF naproxen 500 mg tablet 500 mg PO BID PRN (Reason: pain) 10 Days Qty: 20 0RF xlqhtbcltm-hagkpcixiyrrg-uvoy [Fioricet] 50-300-40 mg capsule 1 cap PO Q6H PRN (Reason: pain) 4 Days Qty: 16 0RF Rx Instructions: headache ondansetron 4 mg tablet,disintegrating 4 mg PO Q8H PRN (Reason: nausea and vomiting) Qty: 20 0RF cephalexin 500 mg capsule 500 mg PO TID 7 Days Qty: 21 0RF ibuprofen 600 mg tablet 600 mg PO Q6H PRN (Reason: pain) Qty: 30 0RF cefuroxime axetil 250 mg tablet 250 mg PO BID 7 Days Qty: 14 0RF phenazopyridine [Pyridium] 100 mg tablet 200 mg PO TID 2 Days Qty: 6 0RF nitrofurantoin monohyd/m-cryst [Macrobid] 100 mg capsule 100 mg PO Q12H 5 Days Qty: 10 0RF Rx Instructions: must administer with a meal/food ondansetron 4 mg tablet,disintegrating 4 mg PO Q8H PRN (Reason: nausea and vomiting) Qty: 20 0RF Stand Alone Forms: Work/School Release Interventions: ED Discharge Assessment Last Done: 10/03/23 19:50 Discharge Date/Time: 10/03/23 19:50
[2023-10-03 19:02] LABS: Influenza A PCR NEGATIVE (Negative); Influenza B PCR NEGATIVE (Negative); Resp Syncy Virus RNA Qual PCR NEGATIVE (Negative); SARS COV2 PCR INHOUSE POSITIVE (Negative)
== END 2023-10-03 19:50 | disposition home or self-care (01) ==
PROVIDERS: Emergency Provider Internal Medicine
DX: U07.1 COVID-19 (principal); M79.10 Myalgia, unspecified site; R05.9 Cough, unspecified; R50.9 Fever, unspecified; R11.2 Nausea with vomiting, unspecified; Z79.899 Other long term (current) drug therapy
CPT/HCPCS: 0241U; 99282; 99283

== ENCOUNTER 2024-02-17 16:14 | Emergency (ER) | payer MEDICAID, SELFPAY ==
[2024-02-17 16:26] VITALS: BP 117/64; PULSE 83; RESP 16; TEMP 37.1; O2SAT 99; BMI 21.7
--- NOTE | 2024-02-17 16:29 | ED_ITS ---
HPI - Female Genitourinary General Chief complaint: Urogenital-Female Stated complaint: abd pain and burning when urinating Time Seen by Provider: 02/17/24 17:31 Source: patient Mode of arrival: ambulatory Limitations: no limitations History of Present Illness HPI Narrative: 23-year-old female presents to ED for burning on urination mild pelvic discomfort. Patient denies any vaginal bleeding. Patient admits to vaginal lesions that are painful and red and also green thick discharge. Patient admits to unprotected sexual activity Related Data Previous Rx's ?Medication ?Instructions ?Recorded dicyclomine 20 mg tablet 20 mg PO BID Abdominal pain #20 03/19/21 tabs metoclopramide HCl 10 mg tablet 10 mg PO Q6H PRN nausea and 03/19/21 (Reglan) vomiting #30 tabs ondansetron HCl 4 mg tablet 4 mg PO Q8H PRN nausea and 03/19/21 (Zofran) vomiting #14 tabs plscrssowu-sveijiypocymk-pkdedayl 1 cap PO Q6H PRN pain 4 days #16 09/27/21 50 mg-300 mg-40 mg capsule caps (Fioricet) naproxen 500 mg tablet 500 mg PO BID PRN pain 10 days #20 09/27/21 tabs cephalexin 500 mg capsule 500 mg PO TID 7 days #21 caps 04/28/22 ibuprofen 600 mg tablet 600 mg PO Q6H PRN pain #30 tabs 04/28/22 cefuroxime axetil 250 mg tablet 250 mg PO BID 7 days #14 tabs 05/15/22 phenazopyridine 100 mg tablet 200 mg (2 x 100 mg) PO TID 2 days 05/15/22 (Pyridium) #6 tabs ondansetron 4 mg disintegrating 4 mg PO Q8H PRN nausea and 05/26/22 tablet vomiting #20 tabs nitrofurantoin 100 mg PO Q12H 5 days #10 caps 02/24/23 monohydrate/macrocrystals 100 mg capsule (Macrobid) ondansetron 4 mg disintegrating 4 mg PO Q8H PRN nausea and 02/24/23 tablet vomiting #20 tabs doxycycline hyclate 100 mg capsule 100 mg PO BID 7 days #14 caps 02/17/24 metronidazole 500 mg tablet 500 mg PO Q12H 7 days #14 tabs 02/17/24 valacyclovir 500 mg tablet 500 mg PO BID 3 days #6 tabs 02/17/24 Allergies Allergy/AdvReac Type Severity Reaction Status Date / Time No Known Allergies Allergy Verified 02/17/24 16:27 Review of Systems Review of Systems: green vaginal discharge, red painful vaginal lesions Yes all other systems are reviewed and are negative [facility] Past Medical History Medical History Abscess Social History Social History Alcohol intake: current Alcohol intake frequency: holidays/special occasions only Patient Tobacco Use Status: Never used Tobacco Advance Directives: No Advance Directives Information Provided: No Physical Exam Vital Signs: Vital Signs: Last Vital Signs Temp 98.8 F 02/17/24 19:07 Pulse 83 02/17/24 19:07 Resp 18 02/17/24 19:07 BP 117/64 02/17/24 19:07 Pulse Ox 98 02/17/24 19:07 O2 Del Method Room Air 02/17/24 19:07 BMI result Body Mass Index 21.7 Const: Orientation/consciousness: oriented to person, oriented to place, oriented to time and patient oriented x3 HEENT: Head: Yes normal to inspection, Yes No palpable skull fracture present, Yes normocephalic and Yes atraumatic Eyes: General: appearance normal, both eyes and all related structures Neck: Neck: Yes normal visual inspection, Yes full ROM, Yes no lymphadenopathy, Yes no meningeal signs, Yes trachea midline, Yes supple, No anterior neck swelling and No tender Chest: Chest palpation & inspection: normal inspection of the chest and normal palpation of entire chest wall Resp: Effort & Inspection: normal respiratory effort and able to speak in complete sentences Auscultation: clear to auscultation bilaterally Cardio: Jugular venous distension: no JVD Heart sounds: S1 normal heart sound present and S2 normal heart sound present GI: Inspection: Yes normal to inspection Palpation (GI): Soft to palpation, not firm, nontender, no guarding and not rigid : General: No CVA tenderness and Yes no CVA tenderness External Female Exam: lesion (vesicular lesions on right labia and right buttock. left buttock.) Speculum Exam - Vagina: abnormal vaginal discharge ( green frothy cheesy discharge) Speculum Exam - Cervix: Abnormal cervical discharge present (green) Back/Spine/Pelvis: Back: no CVA tenderness, No CVA tenderness and No back tenderness Skin: General skin exam: no rashes or lesions noted, elasticity normal and turgor normal Neuro: General: oriented to person, oriented to place, oriented to time, patient oriented x3, gait normal, tone normal, moves all extremities, Normal light touch and pain sensation, no meningeal signs, no focal motor deficits, CN's II-XI intact bilaterally and normal sensation to monofilament Extrem: General: Yes normal to inspection, Yes full ROM and Yes capillary refill normal Psych: Appearance: grossly normal, well kempt and not disheveled Course Course Course Narrative: This is a rapid medical exam performed by Yasmin Tanner NP: Additional HPI, ROS, PE not included below will be deferred to primary provider. Patient is a 23-year-old female presenting to the emergency department with complaint lower abdominal pain for the past 2 days as well as urinary urgency. Also reports creamy vaginal discharge and recent unprotected intercourse. Plan: UA Medications Administered Discontinued Medications Generic Name Dose Route Start Last Admin Trade Name Freq PRN Reason Stop Dose Admin Ceftriaxone Sodium 500 mg/ 0 mg 02/17/24 18:54 02/17/24 19:00 Lidocaine HCl 1 ml IM 02/17/24 18:55 1 kit ONCE ONE Administration Fluconazole 150 mg 02/17/24 18:54 02/17/24 19:00 Fluconazole 150 Mg Tablet PO 02/17/24 18:55 150 mg ONCE ONE Administration Medical Decision Making Medical Decision Making [facility] Narrative: 23-year-old female recent unprotected sexual activity presents to ED for dysuria, green vaginal discharge, and also vaginal burning lesions. Patient states no abdominal pain, flank pain, fever, or chills. Pelvic exam positive for similar vesicular lesions and green frothy discharge. Negative for adnexal tenderness or CMT. Not suspecting tubo-ovarian abscess or ovarian torsion. Patient will be treated empirically for STD's. UA Shows leuk esterase but not much infection. physical exam indicate possibly herpes with as chlamydia gonorrhea or trich or BV. Will be treated empirically. Differential Diagnosis Differential Diagnoses: The differential diagnosis associated with the presentation includes ( UTI, herpes, chlamydia, gonorrhea, BV, trich, yeast) Admission/Observation Consideration of admission/observation: Escalation of care including admission/observation considered Lab Data MDM Lab Attestation statement: I reviewed the patient's lab results. Labs: Lab Results 02/17/24 02/17/24 Range/Units 17:14 18:36 Urine Color Yellow Urine Appearance Clear Urine pH 8.5 (5.0-9.0) Ur Specific [place] 1.015 (1.005-1.025) Urine Protein Negative (Neg-Trace) mg/dL Urine Glucose (UA) Negative (Negative) mg/dL Urine Ketones Negative (Negative) mg/dL Urine Blood Negative (Negative) Urine Nitrite Negative (Negative) Ur Leukocyte Esterase Moderate (2+) H (Negative) Urine RBC 0-2 (0-2) /HPF Urine WBC 0-5 (0-5) /HPF Ur Squamous Epith Cells 3-5 (0-2) /HPF Urine Bacteria Trace (None Seen) Hyaline Casts 0-2 (0-2) /LPF Urine Test NEGATIVE (NEGATIVE) Evelina species DNA Positive A (Negative) Chlam trachomat DNA PCR NOT DETECTED (Not Detect.) Gardnerella DNA Probe Positive A (Negative) N.gonorrhoeae DNA (PCR) NOT DETECTED (Not Detect.) Trichomonas DNA Probe Negative (Negative) Independent Historian Clinical information obtained from an independent historian. History obtained from or confirmed by: Other ( patient) External Record Review External record reviewed: Other ( prior visits) Prescription Management I considered prescription management with: Antibiotic Discharge Plan Discharge Clinical Impression: Dysuria Patient Disposition: Home, Self-Care Instructions: Dysuria (ED) Additional Instructions: you are being treated empirically. You will be called with any positive results. Return to the ED immediately for worsening vaginal lesions, vaginal discharge, abdominal pain, nausea, vomiting, fever, chills, flank pain, back pain, hematuria, or any other concerning symptoms. Recommend follow-up with primary care provider Prescriptions: New doxycycline hyclate 100 mg capsule 100 mg PO BID 7 Days Qty: 14 0RF metronidazole 500 mg tablet 500 mg PO Q12H 7 Days Qty: 14 0RF valacyclovir 500 mg tablet 500 mg PO BID 3 Days Qty: 6 0RF No Action ondansetron HCl [Zofran] 4 mg tablet 4 mg PO Q8H PRN (Reason: nausea and vomiting) Qty: 14 0RF dicyclomine 20 mg tablet 20 mg PO BID Qty: 20 0RF metoclopramide HCl [Reglan] 10 mg tablet 10 mg PO Q6H PRN (Reason: nausea and vomiting) Qty: 30 0RF naproxen 500 mg tablet 500 mg PO BID PRN (Reason: pain) 10 Days Qty: 20 0RF wsxtxakrfp-mmiyidclgbcjf-kkah [Fioricet] 50-300-40 mg capsule 1 cap PO Q6H PRN (Reason: pain) 4 Days Qty: 16 0RF Rx Instructions: headache ondansetron 4 mg tablet,disintegrating 4 mg PO Q8H PRN (Reason: nausea and vomiting) Qty: 20 0RF cephalexin 500 mg capsule 500 mg PO TID 7 Days Qty: 21 0RF ibuprofen 600 mg tablet 600 mg PO Q6H PRN (Reason: pain) Qty: 30 0RF cefuroxime axetil 250 mg tablet 250 mg PO BID 7 Days Qty: 14 0RF phenazopyridine [Pyridium] 100 mg tablet 200 mg PO TID 2 Days Qty: 6 0RF nitrofurantoin monohyd/m-cryst [Macrobid] 100 mg capsule 100 mg PO Q12H 5 Days Qty: 10 0RF Rx Instructions: must administer with a meal/food ondansetron 4 mg tablet,disintegrating 4 mg PO Q8H PRN (Reason: nausea and vomiting) Qty: 20 0RF Stand Alone Forms: Work/School Release Interventions: ED Discharge Assessment Last Done: 02/17/24 19:07 Discharge Date/Time: 02/17/24 19:08 Print Language: Yoruba
[2024-02-17 17:26] LABS: Appearance Urine Clear; Color Urine Yellow; Glucose Urine UA Negative (Negative); Leukocyte Esterase Urine Moderate (2+) (Negative); Nitrite Urine Negative (Negative); PH 8.5 (5.0-9.0); Specific Gravity - Urine 1.015 (1.005-1.025); UMIC TRIGGER UACC YES; Urine Blood Negative (Negative); Urine Ketones Negative (Negative); Urine Protein Negative (Neg-Trace)
[2024-02-17 17:32] LABS: UPreg QC Valid YES; Urine Pregnancy NEGATIVE (NEGATIVE)
[2024-02-17 17:58] LABS: Bacteria Urine Trace (None Seen); Hyaline Casts Urine 0-2 /LPF (0-2); RBC Urine 0-2 /HPF (0-2); WBC Urine 0-5 /HPF (0-5)
[2024-02-17] MEDS: Fluconazole 150 MG TABLET PO (19:00)
[2024-02-17] MEDS: cefTRIAXone sodium 500 MG, Lidocaine HCl 1 % MPF 1 ML IM (19:00)
[2024-02-17 19:07] VITALS: BP 117/64; PULSE 83; RESP 18; TEMP 37.1; O2SAT 98
[2024-02-18 03:21] LABS: CT PCR NOT DETECTED (Not Detect.); NG PCR NOT DETECTED (Not Detect.)
[2024-02-18 12:17] LABS: BV Int Neg Control Negative (Negative); BV Int Pos Control Positive (Positive)
== END 2024-02-17 19:08 | disposition home or self-care (01) ==
PROVIDERS: Physician Assistant; Registered Nurse Emergency; Emergency Provider Emergency Medicine Emergency Medical Services
DX: R30.0 Dysuria (principal); Z72.51 High risk heterosexual behavior
CPT/HCPCS: 0353U; 81001; 81025; 87255; 87480; 87510; 87660; 96372; 99282; 99284; J0696

== ENCOUNTER 2024-05-21 18:54 | Emergency (ER) | payer MEDICAID, SELFPAY ==
--- NOTE | ~2024-05-21 | US_ITS ---
EXAMINATION: US OBSTETRICAL ULTRASOUND CLINICAL INFORMATION: patient with pain. COMPARISON: None available. LMP: 04/17/2024. Gestational age by maternal dates is 4 weeks 6 days. Estimated date of delivery by maternal dates is 01/22/2025. TECHNIQUE: Transabdominal and transvaginal obstetrical ultrasound performed. FINDINGS: The uterus is normal in appearance measuring 8.4 x 4.2 x 4.7 cm. There is an intrauterine gestational sac and yolk sac identified. No pole currently identified. MATERNAL ADNEXA: The right maternal ovary measures 4.1 x 2.0 x 3.3 cm. The left maternal ovary measures 2.3 x 1.4 x 1.6 cm. There is no significant maternal adnexal mass. There is trace free fluid within the pelvis. US/US OB pelvic and transvaginal IMPRESSION: Single intrauterine gestational sac and yolk sac. No pole currently identified. Finding suggests early . Ectopic not entirely excluded and correlation quantitative beta-hCG and follow-up needed.
[2024-05-21 19:52] VITALS: BP 106/67; PULSE 84; RESP 16; TEMP 37; O2SAT 100; BMI 20.8
--- NOTE | 2024-05-21 19:58 | ED_ITS ---
HPI - General Adult General Chief complaint: Abdominal Pain Stated complaint: vomiting & headache Time Seen by Provider: 05/22/24 00:07 Source: patient Mode of arrival: ambulatory Limitations: no limitations History of Present Illness ED Provider: joshua CASTANEDA narrative: Patient complaining of nausea vomiting diffuse abdominal discomfort , Patient had regular LMP 04/17 no vaginal bleeding no urinary complaints vomited to 3 times a day yesterday morning was the last time complaining of nausea also does have constipation no urinary complaint Related Data Previous Rx's ?Medication ?Instructions ?Recorded dicyclomine 20 mg tablet 20 mg PO BID Abdominal pain #20 03/19/21 tabs metoclopramide HCl 10 mg tablet 10 mg PO Q6H PRN nausea and 03/19/21 (Reglan) vomiting #30 tabs ondansetron HCl 4 mg tablet 4 mg PO Q8H PRN nausea and 03/19/21 (Zofran) vomiting #14 tabs vnaqupvckt-bjphyrhhffokl-mhuznbfm 1 cap PO Q6H PRN pain 4 days #16 09/27/21 50 mg-300 mg-40 mg capsule caps (Fioricet) naproxen 500 mg tablet 500 mg PO BID PRN pain 10 days #20 09/27/21 tabs cephalexin 500 mg capsule 500 mg PO TID 7 days #21 caps 04/28/22 ibuprofen 600 mg tablet 600 mg PO Q6H PRN pain #30 tabs 04/28/22 cefuroxime axetil 250 mg tablet 250 mg PO BID 7 days #14 tabs 05/15/22 phenazopyridine 100 mg tablet 200 mg (2 x 100 mg) PO TID 2 days 05/15/22 (Pyridium) #6 tabs ondansetron 4 mg disintegrating 4 mg PO Q8H PRN nausea and 05/26/22 tablet vomiting #20 tabs nitrofurantoin 100 mg PO Q12H 5 days #10 caps 02/24/23 monohydrate/macrocrystals 100 mg capsule (Macrobid) ondansetron 4 mg disintegrating 4 mg PO Q8H PRN nausea and 02/24/23 tablet vomiting #20 tabs doxycycline hyclate 100 mg capsule 100 mg PO BID 7 days #14 caps 02/17/24 metronidazole 500 mg tablet 500 mg PO Q12H 7 days #14 tabs 05/03/24 valacyclovir 500 mg tablet 500 mg PO BID 3 days #6 tabs 02/17/24 fluconazole 150 mg tablet 150 mg PO Q3D 2 doses #2 tabs 02/20/24 polyethylene glycol 3350 17 17 g PO DAILY #510 grams 05/22/24 gram/dose oral powder (Miralax) pyridoxine (vitamin B6) 25 mg 25 mg PO TID PRN vomiting/nausea 05/22/24 tablet #90 tabs Allergies Allergy/AdvReac Type Severity Reaction Status Date / Time No Known Allergies Allergy Verified 05/21/24 19:54 Review of Systems 2 Review of Systems: Yes all other systems are reviewed and are negative [facility] Past Medical History Medical History Abscess Social History Social History Alcohol intake: never Patient Tobacco Use Status: Never used Tobacco Smoked in Last 30 Days: No Use of substances other than those prescribed or required for medical reasons: No Advance Directives: No Advance Directives Information Provided: Yes Patient : Yes Physical Exam ED Vital Signs: Vital Signs - 24 hr 05/21/24 19:52 05/21/24 23:51 05/22/24 00:47 Temperature 98.6 F 97.5 F 97.5 F Pulse Rate 84 63 63 Respiratory Rate 16 16 16 Blood Pressure 106/67 113/58 L 113/58 L Pulse Oximetry 100 100 100 Oxygen Delivery Method Room Air Room Air Room Air BMI result Body Mass Index 20.8 Appearance: Alert. Oriented X3. No acute distress. Eyes: No pallor or icterus ENT: Pharynx normal. Oral Mucosa moist Neck: Normal inspection. Neck supple. CVS: Normal heart rate and rhythm. Pulses normal. Respiratory: No respiratory distress. Equal air entry bilateral, no wheezing/rales/rhonchi Abdomen: Soft and mild mid abdominal discomfort no guarding or rebound tenderness Bowel sounds are present, no mass palpable, no CVA tenderness Skin: Skin warm and dry. Normal skin color. Normal skin turgor. Extremities: No lower extremity edema. No calf tenderness Neuro: Oriented X 3. Course Course Course Narrative: RME: DOne by SHELL Driscoll. Patient presents to ED for lower abdominal pain with some cramping. Patient states also some nausea vomiting since Tuesday. Patient denies any diarrhea. Labs ordered. Reevaluation(s) Reevaluation #1: This is an RME performed by Winnie Serrano CNP: Additional HPI, ROS, PE not included below will be deferred to primary provider. Patient noted to have positive hCG. Reports last menstrual period 04/17/2024, reporting mid/right lower quadrant abdominal pain, has some tenderness on examination. Ultrasound ordered to rule out ectopic Time: 21:55 Medications Administered Discontinued Medications Generic Name Dose Route Start Last Admin Trade Name Freq PRN Reason Stop Dose Admin Magnesium Hydroxide 30 ml 05/22/24 00:15 05/22/24 00:30 Milk Of Magnesia 30 Ml Oral.Susp PO 05/22/24 00:16 30 ml ONCE ONE Administration Medical Decision Making Medical Decision Making [facility] Narrative: Patient came with diffuse abdominal pain with nausea vomiting noted to be about 5 weeks ultrasound of the pelvis reveal gestationsec in the uterus other labs are stable patient's pain likely from constipation and from vomiting of early Differential Diagnosis Differential Diagnoses: The differential diagnosis associated with the presentation includes IUP/constipation/ectopic/ovarian cyst Lab Data [facility] Lab Attestation statement: I reviewed the patient's lab results. 05/21/24 20:36 05/21/24 20:36 Labs: Lab Results 05/21/24 Range/Units 20:36 WBC 6.9 (4.8-10.8) X10*3/uL RBC 3.86 L (4.20-5.50) X10*6/uL Hgb 12.1 (12.0-16.0) g/dl Hct 34.9 L (37.0-47.0) % MCV 90.4 (80.0-98.0) fL MCH 31.3 (27.0-33.0) pg MCHC 34.7 (31.0-35.0) g/dl RDW 11.6 (11.0-16.0) % Plt Count 190 (160-400) X10*3/uL MPV 11.3 (9.4-12.3) fL Immature Gran % (Auto) 0.3 (0.0-0.4) % Neut % (Auto) 61.6 (45-73) % Lymph % (Auto) 29.1 (20-40) % Lucas % (Auto) 8.0 (2-11) % Eos % (Auto) 0.7 (0-4) % Baso % (Auto) 0.3 (0-2) % Lymph # (Auto) 2.0 (1.2-4.9) X10*3/uL Lucas # (Auto) 0.6 (0.1-1.2) X10*3/uL Eos # (Auto) 0.1 (0.0-0.4) X10*3/uL Baso # (Auto) 0.0 (0.0-0.2) X10*3/uL Abs Immat Gran (auto) 0.02 (0.00-0.03) X10*3/uL Absolute Neuts (auto) 4.2 (2.0-8.3) x10*3/uL Absolute Nucleated RBC 0.000 (0.0-0.012) X10*3/uL Nucleated RBC % (auto) 0.0 (0.0-0.2) /100WBC PT 14.2 H (11.1-13.3) SEC INR 1.2 H (0.9-1.1) APTT 30.6 (26.0-36.8) SEC Sodium 136 (135-145) mmol/L Potassium 3.6 (3.3-5.1) mmol/L Chloride 107 (96-108) mmol/L Carbon Dioxide 24 (22-29) mmol/L Anion Gap 9 L (12-20) BUN 7 L (9-16) mg/dL Creatinine 0.73 (0.5-1.4) mg/dL Estim Creat Clear Calc 88.8 Estimated GFR > 60 Random Glucose 80 (60-115) mg/dL Calcium 9.0 (8.4-10.2) mg/dL Total Bilirubin 0.5 (0.0-1.0) mg/dL AST 14 (5-31) U/L ALT 9 (0-31) U/L Alkaline Phosphatase 53 (39-117) U/L Total Protein 6.9 (6.5-8.0) g/dL Albumin 4.2 (3.5-5.0) g/dL Lipase 21 (8-78) U/L Beta HCG, Quant 44980 mIU/mL Urine Color Yellow Urine Appearance Clear Urine pH 5.5 (5.0-9.0) Ur Specific [place] 1.010 (1.005-1.025) Urine Protein Negative (Neg-Trace) mg/dL Urine Glucose (UA) Negative (Negative) mg/dL Urine Ketones 15 (Negative) mg/dL Urine Blood Negative (Negative) Urine Nitrite Negative (Negative) Ur Leukocyte Esterase Negative (Negative) Independent Interpretation I performed an independent interpretation of an: Ultrasound Interpretation: US/US OB pelvic and transvaginal IMPRESSION: Single intrauterine gestational sac and yolk sac. No pole currently identified. Finding suggests early . Ectopic not entirely excluded and correlation quantitative beta-hCG and follow-up needed. Discharge Plan Discharge Clinical Impression: Constipation, Early stage of Patient Disposition: Home, Self-Care Instructions: (ED), Constipation (ED) Additional Instructions: Drink plenty of fluids Take medication for nausea and constipation as prescribed Your very early and in the right place Follow with rn faculty Prescriptions: New polyethylene glycol 3350 [Miralax] 17 gram/dose powder 17 g PO DAILY Qty: 510 0RF pyridoxine (vitamin B6) 25 mg tablet 25 mg PO TID PRN (Reason: vomiting/nausea) Qty: 90 0RF No Action ondansetron HCl [Zofran] 4 mg tablet 4 mg PO Q8H PRN (Reason: nausea and vomiting) Qty: 14 0RF dicyclomine 20 mg tablet 20 mg PO BID Qty: 20 0RF metoclopramide HCl [Reglan] 10 mg tablet 10 mg PO Q6H PRN (Reason: nausea and vomiting) Qty: 30 0RF naproxen 500 mg tablet 500 mg PO BID PRN (Reason: pain) 10 Days Qty: 20 0RF pxamqwngzf-qrurmzdpjnukw-izox [Fioricet] 50-300-40 mg capsule 1 cap PO Q6H PRN (Reason: pain) 4 Days Qty: 16 0RF Rx Instructions: headache ondansetron 4 mg tablet,disintegrating 4 mg PO Q8H PRN (Reason: nausea and vomiting) Qty: 20 0RF cephalexin 500 mg capsule 500 mg PO TID 7 Days Qty: 21 0RF ibuprofen 600 mg tablet 600 mg PO Q6H PRN (Reason: pain) Qty: 30 0RF cefuroxime axetil 250 mg tablet 250 mg PO BID 7 Days Qty: 14 0RF phenazopyridine [Pyridium] 100 mg tablet 200 mg PO TID 2 Days Qty: 6 0RF nitrofurantoin monohyd/m-cryst [Macrobid] 100 mg capsule 100 mg PO Q12H 5 Days Qty: 10 0RF Rx Instructions: must administer with a meal/food ondansetron 4 mg tablet,disintegrating 4 mg PO Q8H PRN (Reason: nausea and vomiting) Qty: 20 0RF doxycycline hyclate 100 mg capsule 100 mg PO BID 7 Days Qty: 14 0RF metronidazole 500 mg tablet 500 mg PO Q12H 7 Days Qty: 14 0RF valacyclovir 500 mg tablet 500 mg PO BID 3 Days Qty: 6 0RF fluconazole 150 mg tablet 150 mg PO Q3D Qty: 2 0RF Interventions: ED Discharge Assessment Last Done: 05/22/24 00:47 Discharge Date/Time: 05/22/24 00:48 Print Language: Micronesian
[2024-05-21 20:41] LABS: MANUAL DIFF FLAG NO
[2024-05-21 20:50] LABS: Basophils Percent Auto 0.3 % (0-2); Eosinophils Absolute Auto 0.1 X10*3/uL (0.0-0.4); Eosinophils Percent Auto 0.7 % (0-4); Hematocrit 34.9 % (37.0-47.0); Hemoglobin 12.1 g/dl (12.0-16.0); Imm Gran Abs Auto 0.02 X10*3/uL (0.00-0.03); Imm Gran Pct Auto 0.3 % (0.0-0.4); Lymphocytes Percent Auto 29.1 % (20-40); Mean Corpuscular HGB Conc 34.7 g/dl (31.0-35.0); Mean Corpuscular Hemoglobin 31.3 pg (27.0-33.0); Mean Corpuscular Volume 90.4 fL (80.0-98.0); Mean Platelet Volume 11.3 fL (9.4-12.3); Monocytes Absolute Auto 0.6 X10*3/uL (0.1-1.2); Neutrophils Absolute Auto 4.2 x10*3/uL (2.0-8.3); Neutrophils Percent Auto 61.6 % (45-73); Platelet Count 190 X10*3/uL (160-400); Red Blood Count 3.86 X10*6/uL (4.20-5.50); Red Cell Distribution Width 11.6 % (11.0-16.0); White Blood Count 6.9 X10*3/uL (4.8-10.8)
[2024-05-21 20:52] LABS: Appearance Urine Clear; Color Urine Yellow; Glucose Urine UA Negative (Negative); Leukocyte Esterase Urine Negative (Negative); Nitrite Urine Negative (Negative); PH 5.5 (5.0-9.0); Urine Blood Negative (Negative); Urine Ketones 15 mg/dL (Negative); Urine Protein Negative (Neg-Trace)
[2024-05-21 20:58] LABS: INTERNATIONAL NORM RATIO 1.2 (0.9-1.1); Prothrombin Time 14.2 SEC (11.1-13.3)
[2024-05-21 21:01] LABS: Partial Thromboplastin Time 30.6 SEC (26.0-36.8)
[2024-05-21 21:10] LABS: Alanine Aminotransferase 9 U/L (0-31); Albumin Level 4.2 g/dL (3.5-5.0); Alkaline Phosphatase 53 U/L (39-117); Anion Gap 9 (12-20); Aspartate Amino Transferase 14 U/L (5-31); Bilirubin Total 0.5 mg/dL (0.0-1.0); Blood Urea Nitrogen 7 mg/dL (9-16); Carbon Dioxide 24 mmol/L (22-29); Chloride 107 mmol/L (96-108); Creatinine Clr Calc Pharmacy 88.8; Estimated Glomerular Filt Rate > 60; Glucose Random 80 mg/dL (60-115); Lipase 21 U/L (8-78); Potassium 3.6 mmol/L (3.3-5.1); Sodium 136 mmol/L (135-145); Total Protein 6.9 g/dL (6.5-8.0)
[2024-05-21 21:25] LABS: HCG Quantitative 21066 mIU/mL
[2024-05-21 23:51] VITALS: BP 113/58; PULSE 63; RESP 16; TEMP 36.4; O2SAT 100
[2024-05-22] MEDS: Milk of Magnesia 30 ML ORAL.SUSP PO (00:30)
[2024-05-22 00:47] VITALS: BP 113/58; PULSE 63; RESP 16; TEMP 36.4; O2SAT 100
== END 2024-05-22 00:48 | disposition home or self-care (01) ==
PROVIDERS: Physician Assistant; Emergency Provider Internal Medicine
DX: O26.899 Other specified pregnancy related conditions, unspecified trimester (principal); R11.2 Nausea with vomiting, unspecified; K59.00 Constipation, unspecified; R10.31 Right lower quadrant pain
CPT/HCPCS: 36415; 76801; 76817; 80053; 81003; 83690; 84702; 85025; 85610; 85730; 99284

== ENCOUNTER 2024-12-13 21:00 | Emergency (ER) | payer MEDICAID, SELFPAY ==
[2024-12-13 21:29] VITALS: BP 105/63; PULSE 84; RESP 16; TEMP 36.8; O2SAT 97; BMI 21.5
[2024-12-13 21:51] LABS: MANUAL DIFF FLAG NO
[2024-12-13 21:52] LABS: Basophils Percent Auto 0.4 % (0-2); Eosinophils Percent Auto 0.5 % (0-4); Hematocrit 37.3 % (37.0-47.0); Hemoglobin 12.9 g/dl (12.0-16.0); Imm Gran Abs Auto 0.02 X10*3/uL (0.00-0.03); Imm Gran Pct Auto 0.4 % (0.0-0.4); Lymphocytes Absolute Auto 1.6 X10*3/uL (1.2-4.9); Lymphocytes Percent Auto 27.5 % (20-40); Mean Corpuscular HGB Conc 34.6 g/dl (31.0-35.0); Mean Corpuscular Hemoglobin 31.2 pg (27.0-33.0); Mean Corpuscular Volume 90.3 fL (80.0-98.0); Mean Platelet Volume 9.7 fL (9.4-12.3); Monocytes Absolute Auto 0.5 X10*3/uL (0.1-1.2); Monocytes Percent Auto 9.4 % (2-11); Neutrophils Absolute Auto 3.5 x10*3/uL (2.0-8.3); Neutrophils Percent Auto 61.8 % (45-73); Platelet Count 196 X10*3/uL (160-400); Red Blood Count 4.13 X10*6/uL (4.20-5.50); Red Cell Distribution Width 11.7 % (11.0-16.0); White Blood Count 5.6 X10*3/uL (4.8-10.8)
[2024-12-13 21:53] LABS: Appearance Urine Clear; Color Urine Dark Yellow; Glucose Urine UA Negative (Negative); Leukocyte Esterase Urine Trace (Negative); Nitrite Urine Positive (Negative); PH 7.5 (5.0-9.0); UMIC TRIGGER UACC YES; Urine Blood Negative (Negative); Urine Ketones Negative (Negative); Urine Protein Negative (Neg-Trace)
[2024-12-13 21:55] LABS: UPreg QC Valid YES; Urine Pregnancy NEGATIVE (NEGATIVE)
[2024-12-13 22:04] LABS: Anion Gap 12 (12-20); Blood Urea Nitrogen 10 mg/dL (9-16); Carbon Dioxide 25 mmol/L (22-29); Chloride 106 mmol/L (96-108); Creatinine Clr Calc Pharmacy 90.5; Estimated Glomerular Filt Rate > 60; Glucose Random 80 mg/dL (60-115); Potassium 3.7 mmol/L (3.3-5.1); Sodium 139 mmol/L (135-145)
[2024-12-13 22:14] LABS: Bacteria Urine Trace (None Seen); Hyaline Casts Urine 0-2 /LPF (0-2); RBC Urine 0-2 /HPF (0-2); UACC Culture Trigger YES; WBC Urine 0-5 /HPF (0-5)
--- NOTE | 2024-12-13 23:43 | ED.FEMALEGU ---
HPI - Female Genitourinary General Chief complaint: Urogenital-Female Stated complaint: bloating and buring when urinating Time Seen by Provider: 12/13/24 23:21 Source: patient Mode of arrival: ambulatory Limitations: no limitations History of Present Illness ED Provider: Zeus CASTANEDA Narrative: 24-year-old female presenting for dysuria. Patient has been experiencing proximally 2 days of dysuria without hematuria. She is also endorsing mild lower abdominal pain. She denies nausea, vomiting, fevers, chills. Patient states that she has also noticed whitish vaginal discharge however it appears similar to the discharge that she has near her. LMP 1-2wks ago. Patient is sexually active with 1 male partner and occasionally uses protection Related Data Previous Rx's ?Medication ?Instructions ?Recorded dicyclomine 20 mg tablet 20 mg PO BID Abdominal pain #20 03/19/21 tabs metoclopramide HCl 10 mg tablet 10 mg PO Q6H PRN nausea and 03/19/21 (Reglan) vomiting #30 tabs ondansetron HCl 4 mg tablet 4 mg PO Q8H PRN nausea and 03/19/21 (Zofran) vomiting #14 tabs xnrrqfcgig-avzqzklzqldyw-inqfppke 1 cap PO Q6H PRN pain 4 days #16 09/27/21 50 mg-300 mg-40 mg capsule caps (Fioricet) naproxen 500 mg tablet 500 mg PO BID PRN pain 10 days #20 09/27/21 tabs cephalexin 500 mg capsule 500 mg PO TID 7 days #21 caps 04/28/22 ibuprofen 600 mg tablet 600 mg PO Q6H PRN pain #30 tabs 04/28/22 cefuroxime axetil 250 mg tablet 250 mg PO BID 7 days #14 tabs 05/15/22 phenazopyridine 100 mg tablet 200 mg (2 x 100 mg) PO TID 2 days 05/15/22 (Pyridium) #6 tabs ondansetron 4 mg disintegrating 4 mg PO Q8H PRN nausea and 05/26/22 tablet vomiting #20 tabs nitrofurantoin 100 mg PO Q12H 5 days #10 caps 02/24/23 monohydrate/macrocrystals 100 mg capsule (Macrobid) ondansetron 4 mg disintegrating 4 mg PO Q8H PRN nausea and 02/24/23 tablet vomiting #20 tabs doxycycline hyclate 100 mg capsule 100 mg PO BID 7 days #14 caps 02/17/24 metronidazole 500 mg tablet 500 mg PO Q12H 7 days #14 tabs 02/17/24 valacyclovir 500 mg tablet 500 mg PO BID 3 days #6 tabs 02/17/24 fluconazole 150 mg tablet 150 mg PO Q3D 2 doses #2 tabs 02/20/24 polyethylene glycol 3350 17 17 g PO DAILY #510 grams 05/22/24 gram/dose oral powder (Miralax) pyridoxine (vitamin B6) 25 mg 25 mg PO TID PRN vomiting/nausea 05/22/24 tablet #90 tabs cephalexin 500 mg capsule 500 mg PO QID 5 days #20 caps 12/14/24 Allergies Allergy/AdvReac Type Severity Reaction Status Date / Time No Known Allergies Allergy Verified 12/13/24 21:30 Review of Systems Review of Systems: Yes all other systems are reviewed and are negative PMFSH Past Medical History Medical History Abscess Social History Social History Alcohol intake: never Patient Tobacco Use Status: Never used Tobacco Smoked in Last 30 Days: No Use of substances other than those prescribed or required for medical reasons: No Advance Directives: No Advance Directives Information Provided: Yes Do you have a plan to hurt others: No Plan Patient : No Physical Exam Vital Signs: Vital Signs: Last Vital Signs Temp 98.2 F 12/13/24 21:29 Pulse 84 12/13/24 21:29 Resp 16 12/13/24 21:29 BP 105/63 12/13/24 21:29 Pulse Ox 97 12/13/24 21:29 O2 Del Method Room Air 12/13/24 21:29 BMI result Body Mass Index 21.5 Well-appearing female in no acute distress A&O x4; normal speech and cognition; walking with steady gait Lungs clear to auscultation bilaterally Normal S1-S2 regular rate rhythm Abdomen is soft, nondistended with mild suprapubic tenderness to palpation Medications Administered Discontinued Medications Generic Name Dose Route Start Last Admin Trade Name Freq PRN Reason Stop Dose Admin Ceftriaxone Sodium 500 mg 12/13/24 23:43 12/14/24 00:27 Ceftriaxone Sodium 500 Mg Vial IM 12/13/24 23:44 500 mg ONCE ONE Administration Lidocaine HCl 1 ml 12/14/24 00:14 12/14/24 00:33 Lidocaine Hcl 1 % 20 Ml Vial INFILTRATI 12/14/24 00:15 1 ml ONCE ONE Administration Medical Decision Making Medical Decision Making [facility] Narrative: 24-year-old female presenting for dysuria -I am concerned for the following; UTI vs STI -less likely however I am also considering PID, ectopic -low suspicion for ovarian torsion given well-appearing and reassuring physical exam -labs ordered Lab interpretation: -UA positive for nitrites and leukocytes -stable H&H, no white count, electrolytes within normal limits, normal LFTs and lipase Ceftriaxone I explained that I have very low suspicion for PID but to assess for this I would perform a bimanual exam. Patient declined stating she will follow up with outpatient clinic if her symptoms worsen. STI testing pending. I instructed patient to follow up with results in 24-48 hours stating that antibiotics would need to be switched if any of the testicles are positive. I discharged patient with follow up instructions and return precautions Lab Data 12/13/24 21:45 12/13/24 21:45 Labs: Lab Results 12/13/24 12/14/24 Range/Units 21:45 00:12 WBC 5.6 (4.8-10.8) X10*3/uL RBC 4.13 L (4.20-5.50) X10*6/uL Hgb 12.9 (12.0-16.0) g/dl Hct 37.3 (37.0-47.0) % MCV 90.3 (80.0-98.0) fL MCH 31.2 (27.0-33.0) pg MCHC 34.6 (31.0-35.0) g/dl RDW 11.7 (11.0-16.0) % Plt Count 196 (160-400) X10*3/uL MPV 9.7 (9.4-12.3) fL Immature Gran % (Auto) 0.4 (0.0-0.4) % Neut % (Auto) 61.8 (45-73) % Lymph % (Auto) 27.5 (20-40) % [place] % (Auto) 9.4 (2-11) % Eos % (Auto) 0.5 (0-4) % Baso % (Auto) 0.4 (0-2) % Lymph # (Auto) 1.6 (1.2-4.9) X10*3/uL [place] # (Auto) 0.5 (0.1-1.2) X10*3/uL Eos # (Auto) 0.0 (0.0-0.4) X10*3/uL Baso # (Auto) 0.0 (0.0-0.2) X10*3/uL Abs Immat Gran (auto) 0.02 (0.00-0.03) X10*3/uL Absolute Neuts (auto) 3.5 (2.0-8.3) x10*3/uL Absolute Nucleated RBC 0.000 (0.0-0.012) X10*3/uL Nucleated RBC % (auto) 0.0 (0.0-0.2) /100WBC Sodium 139 (135-145) mmol/L Potassium 3.7 (3.3-5.1) mmol/L Chloride 106 (96-108) mmol/L Carbon Dioxide 25 (22-29) mmol/L Anion Gap 12 (12-20) BUN 10 (9-16) mg/dL Creatinine 0.71 (0.5-1.4) mg/dL Estim Creat Clear Calc 90.5 Estimated GFR > 60 Random Glucose 80 (60-115) mg/dL Calcium 9.0 (8.4-10.2) mg/dL Total Bilirubin 0.4 (0.0-1.0) mg/dL Direct Bilirubin 0.1 (0.0-0.5) mg/dL AST 24 (5-31) U/L ALT 16 (0-31) U/L Alkaline Phosphatase 67 (39-117) U/L Total Protein 7.3 (6.5-8.0) g/dL Albumin 4.2 (3.5-5.0) g/dL Lipase 28 (8-78) U/L Urine Color Dark Yellow Urine Appearance Clear Urine pH 7.5 (5.0-9.0) Ur Specific [place] 1.010 (1.005-1.025) Urine Protein Negative (Neg-Trace) mg/dL Urine Glucose (UA) Negative (Negative) mg/dL Urine Ketones Negative (Negative) mg/dL Urine Blood Negative (Negative) Urine Nitrite Positive H (Negative) Ur Leukocyte Esterase Trace H (Negative) Urine RBC 0-2 (0-2) /HPF Urine WBC 0-5 (0-5) /HPF Ur Squamous Epith Cells 6-10 (0-2) /HPF Urine Bacteria Trace (None Seen) Hyaline Casts 0-2 (0-2) /LPF Urine Test NEGATIVE (NEGATIVE) T. vaginalis Amp RNA Cancelled Discharge Plan Discharge Clinical Impression: Dysuria Patient Disposition: Home, Self-Care Instructions: Dysuria (ED), Sexually Transmitted Diseases (ED) Additional Instructions: Please follow up on your additional STD testing. Please call the hospital in 24-48 hours for results. It is important that you were treated appropriately if you test positive for any STD. Please follow up with her primary care provider in 48 hours for re-evaluation. If you develop any new or worsening symptoms please return to the emergency department Prescriptions: New cephalexin 500 mg capsule 500 mg PO QID 5 Days Qty: 20 0RF No Action ondansetron HCl [Zofran] 4 mg tablet 4 mg PO Q8H PRN (Reason: nausea and vomiting) Qty: 14 0RF dicyclomine 20 mg tablet 20 mg PO BID Qty: 20 0RF metoclopramide HCl [Reglan] 10 mg tablet 10 mg PO Q6H PRN (Reason: nausea and vomiting) Qty: 30 0RF naproxen 500 mg tablet 500 mg PO BID PRN (Reason: pain) 10 Days Qty: 20 0RF sarbxrqggw-pvnrfuvjdcrxr-vfze [Fioricet] 50-300-40 mg capsule 1 cap PO Q6H PRN (Reason: pain) 4 Days Qty: 16 0RF Rx Instructions: headache ondansetron 4 mg tablet,disintegrating 4 mg PO Q8H PRN (Reason: nausea and vomiting) Qty: 20 0RF cephalexin 500 mg capsule 500 mg PO TID 7 Days Qty: 21 0RF ibuprofen 600 mg tablet 600 mg PO Q6H PRN (Reason: pain) Qty: 30 0RF cefuroxime axetil 250 mg tablet 250 mg PO BID 7 Days Qty: 14 0RF phenazopyridine [Pyridium] 100 mg tablet 200 mg PO TID 2 Days Qty: 6 0RF nitrofurantoin monohyd/m-cryst [Macrobid] 100 mg capsule 100 mg PO Q12H 5 Days Qty: 10 0RF Rx Instructions: must administer with a meal/food ondansetron 4 mg tablet,disintegrating 4 mg PO Q8H PRN (Reason: nausea and vomiting) Qty: 20 0RF doxycycline hyclate 100 mg capsule 100 mg PO BID 7 Days Qty: 14 0RF metronidazole 500 mg tablet 500 mg PO Q12H 7 Days Qty: 14 0RF valacyclovir 500 mg tablet 500 mg PO BID 3 Days Qty: 6 0RF fluconazole 150 mg tablet 150 mg PO Q3D Qty: 2 0RF polyethylene glycol 3350 [Miralax] 17 gram/dose powder 17 g PO DAILY Qty: 510 0RF pyridoxine (vitamin B6) 25 mg tablet 25 mg PO TID PRN (Reason: vomiting/nausea) Qty: 90 0RF Print Language: Macedonian
[2024-12-13 23:44] LABS: Alanine Aminotransferase 16 U/L (0-31); Albumin Level 4.2 g/dL (3.5-5.0); Alkaline Phosphatase 67 U/L (39-117); Aspartate Amino Transferase 24 U/L (5-31); Bilirubin Direct 0.1 mg/dL (0.0-0.5); Bilirubin Total 0.4 mg/dL (0.0-1.0); Lipase 28 U/L (8-78); Total Protein 7.3 g/dL (6.5-8.0)
[2024-12-14] MEDS: cefTRIAXone sodium 500 MG VIAL IM (00:27)
[2024-12-14] MEDS: Lidocaine HCl 1 % 20 ML VIAL INFILTRATI (00:33)
[2024-12-14 01:24] VITALS: BP 103/59; PULSE 83; RESP 14; TEMP 36.9; O2SAT 98
[2024-12-14 11:03] LABS: CT PCR NOT DETECTED (Not Detect.); NG PCR NOT DETECTED (Not Detect.)
== END 2024-12-14 01:30 | disposition home or self-care (01) ==
PROVIDERS: Emergency Provider Student in an Organized Health Care Education/Training Program
DX: R30.0 Dysuria (principal); R10.30 Lower abdominal pain, unspecified; N89.8 Other specified noninflammatory disorders of vagina; Z79.899 Other long term (current) drug therapy
CPT/HCPCS: 36415; 80048; 80076; 81001; 81003; 81025; 83690; 85025; 87086; 87491; 87591; 96372; 99284; J0696; J2003

== ENCOUNTER 2025-06-22 09:04 | Emergency (ER) | payer SELFPAY ==
--- NOTE | ~2025-06-22 | CT_ITS ---
CLINICAL HISTORY: abd pain CT abdomen and pelvis with contrast Comparison: CT/REG/SR - CT ABDOMEN PELVIS WITHOUT IV CONTRAST - 02/24/23 19:17 EDT Findings: No consolidation or effusion. Unremarkable gallbladder and solid organs. No urolithiasis. There is thickening of the wall of the colon, predominating within the proximal colon. There is no bowel obstruction. No pneumatosis or portal venous gas. There are 3 hyperdensities within the distal ileum likely ingested medication. Small to moderate pelvic free fluid. Small uterine fibroid. Unremarkable adnexa and urinary bladder. Normal appendix. No acute fracture. IMPRESSION: 1. There is evidence of colitis, predominating within the proximal colon. 2. There is a small to moderate amount of pelvic free fluid. This document has been electronically signed by: Zandra Floyd MD on 06/22/2025 13:16:59
[2025-06-22 09:11] VITALS: BP 100/58; PULSE 73; O2SAT 98; BMI 20.3
--- NOTE | 2025-06-22 09:13 | ED.GENADULT ---
HPI - General Adult General Chief complaint: Abdominal Pain Stated complaint: NAUSEA,ABD PAIN PER EMS Time Seen by Provider: 06/22/25 09:13 Source: patient and EMS Mode of arrival: EMS Limitations: no limitations History of Present Illness ED Provider: Blanka Hall PA-C HPI narrative: Patient is a 24 year old assigned female at with no significant medical history presenting to the emergency department today with nausea, vomiting, dizziness, and abdominal pain. Patient states that she woke up this morning and attempted to use the bathroom and felt faint, dizzy, and sweaty. Patient reports having non-bloody diarrhea this morning. Patient denies any loss of consciousness but states that she feels overall weak and unwell. Patient states she has been having abdominal pain and constipation with non-painful small volume stools for the past week, but the dizziness started this morning. Patient denies fever, chest pain, difficulty breathing, shortness of breath, vaginal bleeding, pain with urination, increased urinary frequency, increased urinary urgency, hematuria, recent trauma or falls, or any other complaints at this time. Patient reports not currently sexually active with last menstrual period 06/01/25. Patient denies any tobacco use, marijuana use, alcohol use, or other substance use. Onset (ago): week(s) (1 week) Related Data Previous Rx's ?Medication ?Instructions ?Recorded dicyclomine 20 mg tablet 20 mg PO BID Abdominal pain #20 03/19/21 tabs metoclopramide HCl 10 mg tablet 10 mg PO Q6H PRN nausea and 03/19/21 (Reglan) vomiting #30 tabs ondansetron HCl 4 mg tablet 4 mg PO Q8H PRN nausea and 03/19/21 (Zofran) vomiting #14 tabs nffownrxoo-mxispdbcxxzli-jgjtcqxt 1 cap PO Q6H PRN pain 4 days #16 09/27/21 50 mg-300 mg-40 mg capsule caps (Fioricet) naproxen 500 mg tablet 500 mg PO BID PRN pain 10 days #20 09/27/21 tabs cephalexin 500 mg capsule 500 mg PO TID 7 days #21 caps 04/28/22 ibuprofen 600 mg tablet 600 mg PO Q6H PRN pain #30 tabs 04/28/22 cefuroxime axetil 250 mg tablet 250 mg PO BID 7 days #14 tabs 05/15/22 phenazopyridine 100 mg tablet 200 mg (2 x 100 mg) PO TID 2 days 05/15/22 (Pyridium) #6 tabs ondansetron 4 mg disintegrating 4 mg PO Q8H PRN nausea and 05/26/22 tablet vomiting #20 tabs nitrofurantoin 100 mg PO Q12H 5 days #10 caps 02/24/23 monohydrate/macrocrystals 100 mg capsule (Macrobid) ondansetron 4 mg disintegrating 4 mg PO Q8H PRN nausea and 02/24/23 tablet vomiting #20 tabs doxycycline hyclate 100 mg capsule 100 mg PO BID 7 days #14 caps 02/17/24 metronidazole 500 mg tablet 500 mg PO Q12H 7 days #14 tabs 02/17/24 valacyclovir 500 mg tablet 500 mg PO BID 3 days #6 tabs 02/17/24 fluconazole 150 mg tablet 150 mg PO Q3D 2 doses #2 tabs 02/20/24 polyethylene glycol 3350 17 17 g PO DAILY #510 grams 05/22/24 gram/dose oral powder (Miralax) pyridoxine (vitamin B6) 25 mg 25 mg PO TID PRN vomiting/nausea 05/22/24 tablet #90 tabs cephalexin 500 mg capsule 500 mg PO QID 5 days #20 caps 12/14/24 ondansetron 4 mg disintegrating 4 mg PO Q8H 3 days #9 tabs 06/22/25 tablet Allergies Allergy/AdvReac Type Severity Reaction Status Date / Time No Known Allergies Allergy Verified 06/22/25 09:14 Review of Systems Constitutional: Constitutional: Reports as per HPI Eyes: Eyes: Reports as per HPI ENT: Reports as per HPI Cardiovascular: Cardiovascular: Reports as per HPI Respiratory: Respiratory: Reports as per HPI Gastrointestinal: Gastrointestinal: Reports as per HPI Genitourinary: Genitourinary: Reports as per HPI Musculoskeletal: Musculoskeletal: Reports as per HPI Integumentary/Breasts: Skin/Breast: Reports as per HPI Neurologic: Reports as per HPI Psychiatric: Psychiatric: Reports as per HPI Endocrine: Endocrine: Reports as per HPI Hematologic/Lymphatic: Hematologic/Lymphatic: Reports as per HPI Allergic/Immunologic: Allergic/Immunologic: Reports as per HPI [facility] Past Medical History Attestation statement: The following information was validated with the patient. Source: old records reviewed and nursing notes reviewed Medical History Abscess Social History Social History Alcohol intake: never Patient Tobacco Use Status: Never used Tobacco Smoked in Last 30 Days: No Use of substances other than those prescribed or required for medical reasons: No Advance Directives: No Advance Directives Information Provided: Yes Physical Exam ED Vital Signs: Vital Signs - 24 hr 06/22/25 09:15 06/22/25 10:00 06/22/25 12:07 Temperature 98.1 F 98.3 F 97.4 F Pulse Rate 66 59 85 Respiratory Rate 16 16 16 Blood Pressure 108/61 97/50 L 90/52 L Pulse Oximetry 100 100 99 Oxygen Delivery Method Room Air Room Air 06/22/25 13:40 06/22/25 13:51 Temperature 98.4 F 98.4 F Pulse Rate 83 83 Respiratory Rate 16 16 Blood Pressure 115/57 L 115/57 L Pulse Oximetry 98 98 Oxygen Delivery Method Room Air Room Air BMI result Body Mass Index 20.3 Const General: cooperative, no acute distress, alert and awake Nutritional Appearance: well nourished Orientation/consciousness: patient oriented x3 HENMT Head: Yes normal to inspection and Yes atraumatic Ears: hearing grossly normal bilaterally and external ears normal General nose exam: Normal external nose present, no nasal discharge noted and no epistaxis Face and sinus: Yes normal facial exam, No abrasion and No laceration Mouth: Normal oral and palatal mucosa present, no drooling and no muffled voice Eyes General: appearance normal, both eyes and all related structures Periorbital: periorbital findings normal Eyelids: Yes eyelids normal Conjunctivae: conjunctivae normal Pupils: Equal, round and reactive pupils present EOM: EOMs intact bilaterally Neck Neck: Yes normal visual inspection and Yes full ROM Resp Effort & Inspection: normal respiratory effort and able to speak in complete sentences GI Inspection: Yes normal to inspection Palpation (GI): Soft to palpation, not firm, Tenderness to palpation present (GI) in the epigastrum and in the LLQ, no guarding and not rigid Percussion: Yes normal to percussion Neuro General: patient oriented x3, moves all extremities and CN's II-XI intact bilaterally Cranial nerves: Yes Equal, round and reactive pupils present Cognition (Neuro): normal cognition Extrem General: Yes normal to inspection, Yes full ROM and Yes capillary refill normal Psych Appearance: grossly normal Mental Status: mental status grossly normal Affect: normal affect Attitude: cooperative Thought process: Normal thought process present Thought content: Normal thought content present Insight: Good insight present (Psych) Medications Administered Discontinued Medications Generic Name Dose Route Start Last Admin Trade Name Shiloh PRN Reason Stop Dose Admin Sodium Chloride 1,000 mls @ 999 mls/hr 06/22/25 09:30 06/22/25 11:00 Ns IV 06/22/25 10:30 Infused .Q1H1M SUMA Infusion Iohexol 85 ml 06/22/25 11:40 06/22/25 11:41 Iohexol 350 Mg/Ml 100 Ml Infus..Btl IV 06/22/25 11:41 85 ml ONCE ONE Administration Ondansetron HCl 4 mg 06/22/25 09:22 06/22/25 09:53 Ondansetron Hcl 4 Mg/2 Ml Vial IVPUSH 06/22/25 09:23 4 mg ONCE ONE Administration Medical Decision Making Medical Decision Making [facility] Narrative: Patient is a 24 year old assigned female at with no significant medical history presenting to the emergency department today with nausea, vomiting, dizziness, and abdominal pain. Patient's physical exam was as noted in the physical exam portion of this note. Patient's blood work was unremarkable. Patient's urine showed no acute process. Patient's CT abd/pelvis showed evidence of colitis but was otherwise unremarkable. I explained my physical exam findings as well as all test results to the patient. I answered all questions asked by the patient. Patient received IV zofran and fluids which, upon re-evaluation, she stated it helped her symptoms significantly. I stressed the importance of the patient taking her medication as directed (either prescribed or as the over the counter packaging recommends). I stressed the importance of the patient following up with her primary care provider. I stressed the importance of the patient returning to the emergency department immediately if her symptoms were to worsen or if she were to develop any dizziness, shortness of breath, difficulty breathing, chest pain, blurry vision, loss of vision, nausea, vomiting, abdominal pain, fever, chills, back pain, or any other complaints. Patient verbalized agreement and understanding with this treatment plan and discharge. Differential Diagnosis Differential Diagnoses: The differential diagnosis associated with the presentation includes Colitis Abdominal pain UTI Admission/Observation Consideration of admission/observation: Escalation of care including admission/observation considered Patient would have been admitted to the hospital had her work up had any findings where hospital admission was appropriate and her clinical presentation warranted hospital admission. Lab Data [facility] Lab Attestation statement: I reviewed the patient's lab results. My interpretation of these results are in the [facility] Rationale portion of this note. 06/22/25 09:49 06/22/25 09:49 Labs: Lab Results 06/22/25 06/22/25 Range/Units 09:49 11:23 WBC 6.3 (4.8-10.8) X10*3/uL RBC 4.22 (4.20-5.50) X10*6/uL Hgb 12.9 (12.0-16.0) g/dl Hct 37.8 (37.0-47.0) % MCV 89.6 (80.0-98.0) fL MCH 30.6 (27.0-33.0) pg MCHC 34.1 (31.0-35.0) g/dl RDW 11.9 (11.0-16.0) % Plt Count 178 (160-400) X10*3/uL MPV 10.6 (9.4-12.3) fL Immature Gran % (Auto) 0.6 H (0.0-0.4) % Neut % (Auto) 67.3 (45-73) % Lymph % (Auto) 24.5 (20-40) % [place] % (Auto) 6.5 (2-11) % Eos % (Auto) 0.8 (0-4) % Baso % (Auto) 0.3 (0-2) % Lymph # (Auto) 1.6 (1.2-4.9) X10*3/uL [place] # (Auto) 0.4 (0.1-1.2) X10*3/uL Eos # (Auto) 0.1 (0.0-0.4) X10*3/uL Baso # (Auto) 0.0 (0.0-0.2) X10*3/uL Abs Immat Gran (auto) 0.04 H (0.00-0.03) X10*3/uL Absolute Neuts (auto) 4.3 (2.0-8.3) x10*3/uL Absolute Nucleated RBC 0.000 (0.0-0.012) X10*3/uL Nucleated RBC % (auto) 0.0 (0.0-0.2) /100WBC Sodium 139 (135-145) mmol/L Potassium 3.9 (3.3-5.1) mmol/L Chloride 107 (96-108) mmol/L Carbon Dioxide 24 (22-29) mmol/L Anion Gap 12 (12-20) BUN 16 (9-16) mg/dL Creatinine 0.84 (0.5-1.4) mg/dL Estim Creat Clear Calc 76.5 Estimated GFR > 60 Random Glucose 97 (60-115) mg/dL Calcium 9.0 (8.4-10.2) mg/dL Magnesium 2.2 (1.6-2.6) mg/dL Total Bilirubin 0.4 (0.0-1.0) mg/dL AST 29 (5-31) U/L ALT 18 (0-31) U/L Alkaline Phosphatase 66 (39-117) U/L Total Protein 7.0 (6.5-8.0) g/dL Albumin 4.4 (3.5-5.0) g/dL Beta HCG, Quant < 2 mIU/mL Urine Color Yellow Urine Appearance Clear Urine pH 5.5 (5.0-9.0) Ur Specific [place] 1.015 (1.005-1.025) Urine Protein Negative (Neg-Trace) mg/dL Urine Glucose (UA) Negative (Negative) mg/dL Urine Ketones 15 (Negative) mg/dL Urine Blood Trace H (Negative) Urine Nitrite Negative (Negative) Ur Leukocyte Esterase Negative (Negative) Urine RBC 0-2 (0-2) /HPF Urine WBC 0-5 (0-5) /HPF Ur Squamous Epith Cells 6-10 (0-2) /HPF Urine Bacteria Trace (None Seen) Hyaline Casts 0-2 (0-2) /LPF Independent Interpretation I performed an independent interpretation of an: CT Scan Interpretation: My interpretation is in agreement with the radiologist's impression of this imaging study. Report Number: [id number]: Total DLP = 291.00 mGy-cm Reason for Exam: abd pain CLINICAL HISTORY: abd pain CT abdomen and pelvis with contrast Comparison: CT/REG/SR - CT ABDOMEN PELVIS WITHOUT IV CONTRAST - 02/24/23 19:17 EDT Findings: No consolidation or effusion. Unremarkable gallbladder and solid organs. No urolithiasis. There is thickening of the wall of the colon, predominating within the proximal colon. There is no bowel obstruction. No pneumatosis or portal venous gas. There are 3 hyperdensities within the distal ileum likely ingested medication. Small to moderate pelvic free fluid. Small uterine fibroid. Unremarkable adnexa and urinary bladder. Normal appendix. No acute fracture. IMPRESSION: 1. There is evidence of colitis, predominating within the proximal colon. 2. There is a small to moderate amount of pelvic free fluid. This document has been electronically signed by: Zandra Floyd MD on 06/22/2025 13:16:59 Dictated By: Zandra Floyd MD Signed By: Electronically signed by Zandra Floyd MD 06/22/25 1317 Radiology Impression Discussion of test interpretation with radiology: I have reviewed the radiologist's reading. Independent Historian Clinical information obtained from an independent historian. History obtained from or confirmed by: EMS (EMS provided additional history and confirmed the history provided by the patient.) Critical Care Time Critical Care Time Critical Care Time: Yes Total Critical Care Time: 34 Attestation: I spent 34 minutes of Critical Care Time with this patient. This does not include time spent on separately reported billable procedures. Discharge Plan Discharge Clinical Impression: Colitis, Nausea Patient Disposition: Home, Self-Care Instructions: Acute Nausea and Vomiting (DC), Colitis (ED) Additional Instructions: Your work up today showed evidence of colitis (inflammation / virus of the intestines). Continue with a bland diet and stay well hydrated. IF you are prescribed home medications and/or you are taking over the counter medications at home - it is very important you continue to do so as prescribed / directed unless told otherwise. Follow up with a primary care provider. Return to the emergency department immediately if your symptoms worsen or if you develop any numbness, tingling, dizziness, shortness of breath, difficulty breathing, chest pain, blurry vision, loss of vision, nausea, vomiting, abdominal pain, fever, chills, back pain, or any other complaints. If you do not have a primary care provider - call any of the below numbers to establish and follow up with a primary care provider. [facility] Primary Care ([place]) [phone] [place] [address], [address] [facility] Primary Care ([address] [place]) [phone] [address] [facility], [address] [facility], [address] [facility] Primary Care ([address] [place]) [phone] [address] [facility], [address] [facility], [address] [facility] Primary Care ([place]) [phone] [place] [address] [address] [facility], [address] [facility] Family Medicine [phone] [address] [facility], [address] Please see the information below about our Patient Portal. If you are not yet enrolled in the [facility] Patient Portal, you will receive an enrollment email invitation following your visit to any [facility] care setting. You may also self-enroll in the Patient Portal by visiting our website: [email or web address] The following information is required to access the Patient Portal: - Your [facility] Medical Record Number - Your personal home email address (must match what is in your electronic medical record, Registration staff can assist with this) - Name - Date of Capabilities of the Patient Portal: - Message some providers - View upcoming appointments - Access your health summary, medical history, and visit history - View current conditions and allergies - View procedure and lab results - View your medications, including guidelines, side effects, and precautions - Complete pre-appointment questionnaires requested by your provider - Ready summary reports of your office visits and procedures To access the Patient Portal Mobile [employer], follow these directions: - Search [employer] in the Dinah Store or epicurio Store - Download the Dinah - Search for [facility] - Enter your login/password Prescriptions: New ondansetron 4 mg tablet,disintegrating 4 mg PO Q8H 3 Days Qty: 9 0RF No Action ondansetron HCl [Zofran] 4 mg tablet 4 mg PO Q8H PRN (Reason: nausea and vomiting) Qty: 14 0RF dicyclomine 20 mg tablet 20 mg PO BID Qty: 20 0RF metoclopramide HCl [Reglan] 10 mg tablet 10 mg PO Q6H PRN (Reason: nausea and vomiting) Qty: 30 0RF naproxen 500 mg tablet 500 mg PO BID PRN (Reason: pain) 10 Days Qty: 20 0RF xfnlzsmphl-zckeasaimvvhd-fdcd [Fioricet] 50-300-40 mg capsule 1 cap PO Q6H PRN (Reason: pain) 4 Days Qty: 16 0RF Rx Instructions: headache ondansetron 4 mg tablet,disintegrating 4 mg PO Q8H PRN (Reason: nausea and vomiting) Qty: 20 0RF cephalexin 500 mg capsule 500 mg PO TID 7 Days Qty: 21 0RF ibuprofen 600 mg tablet 600 mg PO Q6H PRN (Reason: pain) Qty: 30 0RF cefuroxime axetil 250 mg tablet 250 mg PO BID 7 Days Qty: 14 0RF phenazopyridine [Pyridium] 100 mg tablet 200 mg PO TID 2 Days Qty: 6 0RF nitrofurantoin monohyd/m-cryst [Macrobid] 100 mg capsule 100 mg PO Q12H 5 Days Qty: 10 0RF Rx Instructions: must administer with a meal/food ondansetron 4 mg tablet,disintegrating 4 mg PO Q8H PRN (Reason: nausea and vomiting) Qty: 20 0RF doxycycline hyclate 100 mg capsule 100 mg PO BID 7 Days Qty: 14 0RF metronidazole 500 mg tablet 500 mg PO Q12H 7 Days Qty: 14 0RF valacyclovir 500 mg tablet 500 mg PO BID 3 Days Qty: 6 0RF fluconazole 150 mg tablet 150 mg PO Q3D Qty: 2 0RF polyethylene glycol 3350 [Miralax] 17 gram/dose powder 17 g PO DAILY Qty: 510 0RF pyridoxine (vitamin B6) 25 mg tablet 25 mg PO TID PRN (Reason: vomiting/nausea) Qty: 90 0RF cephalexin 500 mg capsule 500 mg PO QID 5 Days Qty: 20 0RF Stand Alone Forms: Work/School Release Interventions: ED Discharge Assessment Last Done: 06/22/25 13:51 Discharge Date/Time: 06/22/25 13:52 Print Language: Mozambican
[2025-06-22 09:15] VITALS: BP 108/61; PULSE 66; RESP 16; TEMP 36.7; O2SAT 100
--- OUTSIDE RECORDS SUMMARY | 2025-06-22 09:43 | XMS_ITS | Clinical Summary ---
Author Organization [employer] Address [address] [place] [address] Care Team Providers Care Sde Name Role Phone Unavailable Primary Care Provider Unavailabl e Medications doxycycline (Vibramycin) 100 MG capsule Take 100 mg by mouth 2 times daily. 02/17/2024 Active fluconazole (Diflucan) 150 MG tablet TAKE 1 TABLET BY MOUTH EVERY 3 DAYS FOR 2 DOSES 02/20/2024 Active metroNIDAZOLE (Flagyl) 500 MG tablet Take 500 mg by mouth every 12 (twelve) hours. 02/17/2024 Active valACYclovir (Valtrex) 500 MG tablet Take 500 mg by mouth 2 times daily. 02/17/2024 Active Immunizations Immunization Administration Dates Next Due Influenza injectable quadrivalent preservative f ree 11/02/2018 Social History Tobacco Use Types Packs/Day Years Used Date Smoking Tobacco: Never Assessed Comments Unknown Sex and Gender Information Value Date Recorded Sex Assigned at Female 08/16/2022 10:15 AM EDT Legal Sex Female 10:15 AM EDT Gender Identity Female 08/16/2022 10:15 AM EDT Sexual Orientation Don't know 08/16/2022 10 :15 AM EDT Plan of Treatment Health Maintenance Due Date Last Done Comments Depression Screening 1998 HIV Screening 1998 SDOH Screening 1998 Disability Screening 1998 Alcohol/Substance Use Screening 2010 Tobacco Screening 2010 Family Planning (PISQ) 2013 HPV Vaccines (1 - 3-dose series) 2013 Hepatitis C Screening 2016 DTaP/Tdap/Td Vaccines (1 - Tdap) 2017 Hepatitis B Vaccines (1 of 3 - 19+ 3-dose series) 2017 Pap Smear 2019 COVID-19 Vaccine (1 - 2023-2 5 season) 2024 Influenza Vaccine (#1) 2025 11/02/2018 Zoster Vaccines (1 of 2) 2048 RSV Patients and Pa tients Aged 60 years or older (1 - 1-dose 75+ series) 2073 HIB Vaccines Aged Out No longer eligi ble based on patient's age to complete this topic Hepatitis A Vaccines Aged Out No long er eligible based on patient's age to complete this topic IPV Vaccines Aged Out No longer eligi ble based on patient's age to complete this topic Meningococcal B Vaccine Aged Out No l onger eligible based on patient's age to complete this topic Meningococcal Vaccine Aged Out No mario tino eligible based on patient's age to complete this topic Pneumococcal Vaccine: Pediat rics (0 to 5 Years) and At-Risk Patients (6 to 49) Years Aged Out No longer eligi ble based on patient's age to complete this topic RSV under 20 months Aged Out No longe r eligible based on patient's age to complete this topic Rotavirus Vaccines Aged Out No longer eligible based on patient's age to complete this topic Insurance [facility] C3
[2025-06-22 09:53] LABS: MANUAL DIFF FLAG NO
[2025-06-22 10:00] VITALS: BP 97/50; PULSE 59; RESP 16; TEMP 36.8; O2SAT 100
[2025-06-22 10:02] LABS: Hematocrit 37.8 % (37.0-47.0); Hemoglobin 12.9 g/dl (12.0-16.0); Imm Gran Abs Auto 0.04 X10*3/uL (0.00-0.03); Imm Gran Pct Auto 0.6 % (0.0-0.4); Lymphocytes Absolute Auto 1.6 X10*3/uL (1.2-4.9); Mean Corpuscular HGB Conc 34.1 g/dl (31.0-35.0); Mean Corpuscular Hemoglobin 30.6 pg (27.0-33.0); Mean Corpuscular Volume 89.6 fL (80.0-98.0); NRBC Abs Auto 0.000 X10*3/uL (0.0-0.012); NRBC Pct Auto 0.0 /100WBC (0.0-0.2); Platelet Count 178 X10*3/uL (160-400); Red Blood Count 4.22 X10*6/uL (4.20-5.50); White Blood Count 6.3 X10*3/uL (4.8-10.8)
[2025-06-22 10:22] LABS: Alanine Aminotransferase 18 U/L (0-31); Albumin Level 4.4 g/dL (3.5-5.0); Alkaline Phosphatase 66 U/L (39-117); Anion Gap 12 (12-20); Aspartate Amino Transferase 29 U/L (5-31); Blood Urea Nitrogen 16 mg/dL (9-16); Calcium 9.0 mg/dL (8.4-10.2); Carbon Dioxide 24 mmol/L (22-29); Chloride 107 mmol/L (96-108); Creatinine Clr Calc Pharmacy 76.5; Estimated Glomerular Filt Rate > 60; Magnesium 2.2 mg/dL (1.6-2.6); Potassium 3.9 mmol/L (3.3-5.1); Sodium 139 mmol/L (135-145); Total Protein 7.0 g/dL (6.5-8.0)
--- NOTE | 2025-06-22 11:20 | PC.NURSE ---
Patient is a 24 year old assigned female at with no significant medical history presenting to the emergency department today with nausea, vomiting, dizziness, and abdominal pain. Patient states that she woke up this morning and attempted to use the bathroom and felt faint, dizzy, and sweaty. Patient alert and oriented. Lungs clear bilat. Respirations even and non-labored. Abdomen flat soft with positive bowel sounds. c/o suprapubic and LLQ abdominal pain. No significant tenderness noted. Positive pedal pulses with no edema.
[2025-06-22 11:29] LABS: Appearance Urine Clear; Glucose Urine UA Negative (Negative); PH 5.5 (5.0-9.0); Specific Gravity - Urine 1.015 (1.005-1.025); UMIC TRIGGER UACC YES
[2025-06-22] MEDS: iohexoL 350 MG/ML 100 ML INFUS..BTL 85 ML IV (11:41)
[2025-06-22 12:07] VITALS: BP 90/52; PULSE 85; RESP 16; TEMP 36.3; O2SAT 99
[2025-06-22 13:40] VITALS: BP 115/57; PULSE 83; RESP 16; TEMP 36.9; O2SAT 98
[2025-06-22 13:51] VITALS: BP 115/57; PULSE 83; RESP 16; TEMP 36.9; O2SAT 98
== END 2025-06-22 13:52 | disposition home or self-care (01) ==
PROVIDERS: Physician Assistant Medical; Emergency Provider Emergency Medicine
DX: K52.9 Noninfective gastroenteritis and colitis, unspecified (principal); R11.0 Nausea; R10.9 Unspecified abdominal pain
CPT/HCPCS: 36415; 74177; 80053; 81001; 83735; 84702; 85025; 96361; 96374; 99285; J2405; Q9967

== ENCOUNTER → 2025-06-22 09:22 | Outpatient (BNV) | payer SELFPAY | PROVIDERS: Emergency Provider Emergency Medicine; Visit Provider Radiology Diagnostic Radiology | DX: R10.84 Generalized abdominal pain (principal); R18.8 Other ascites | CPT/HCPCS: 74177 ==

== ENCOUNTER 2025-06-24 14:54 | Emergency (ER) | payer SELFPAY ==
--- NOTE | ~2025-06-24 | XR_ITS ---
CLINICAL HISTORY: pain 1 view abdomen Comparison: CT/REG/SR - CT ABDOMEN PELVIS W IV CON - 06/22/25 11:37 EDT Findings: No pneumoperitoneum or pneumatosis. No dilated loops of bowel or evidence for bowel obstruction. No acute fractures. IMPRESSION: 1. Nonobstructed bowel-gas pattern. This document has been electronically signed by: Denny Hernandez MD on 06/24/2025 21:11:55
[2025-06-24 15:02] VITALS: BP 123/58; PULSE 72; RESP 16; TEMP 36.4; O2SAT 97; BMI 20.8
--- NOTE | 2025-06-24 15:05 | ED_ITS ---
HPI - General Adult General Chief complaint: Abdominal Pain Stated complaint: Was seen on 06/22 for colitis, meds arent working Time Seen by Provider: 06/24/25 19:59 Source: patient, RN notes reviewed and old records reviewed Mode of arrival: ambulatory Limitations: no limitations History of Present Illness ED Provider: Gloria CASTANEDA narrative: 24-year-old female with no significant past medical history presents for evaluation of left-sided abdominal pain. Patient was seen here on Tuesday for the same pain. She was prescribed Zofran for nausea and vomiting after being diagnosed with colitis pain Your CT scan showed possible colitis and some small to moderate free fluid in the pelvis pain The patient does complain of some burning with urination. Denies any vaginal bleeding or discharge pain She reports that she is not sexually active and not concerned for STI Denies any fevers, but endorses chills Denies any previous abdominal surgeries She also reports that she has not had a bowel movement in about 1 week and feels constipated. Related Data Previous Rx's ?Medication ?Instructions ?Recorded dicyclomine 20 mg tablet 20 mg PO BID Abdominal pain #20 03/19/21 tabs metoclopramide HCl 10 mg tablet 10 mg PO Q6H PRN nause a and 03/19/21 (Reglan) vomiting #30 tabs ondansetron HCl 4 mg tablet 4 mg PO Q8H PRN nausea and 03/19/21 (Zofran) vomiting #14 tabs einsqukyoq-vhoyapdxtyvbo-ntzljfxw 1 cap PO Q6H PRN dorys n 4 days #16 09/27/21 50 mg-300 mg-40 mg capsule caps (Fioricet) naproxen 500 mg tablet 500 mg PO BID PRN pain 10 da ys #20 09/27/21 tabs cephalexin 500 mg capsule 500 mg PO TID 7 days #21 cap s 04/28/22 ibuprofen 600 mg tablet 600 mg PO Q6H PRN pain #30 t abs 04/28/22 cefuroxime axetil 250 mg tablet 250 mg PO BID 7 days # 14 tabs 05/15/22 phenazopyridine 100 mg tablet 200 mg (2 x 100 mg) PO T ID 2 days 05/15/22 (Pyridium) #6 tabs ondansetron 4 mg disintegrating 4 mg PO Q8H PRN nausea and 05/26/22 tablet vomiting #20 tabs nitrofurantoin 100 mg PO Q12H 5 days #10 ca ps 02/24/23 monohydrate/macrocrystals 100 mg capsule (Macrobid) ondansetron 4 mg disintegrating 4 mg PO Q8H PRN nausea and 02/24/23 tablet vomiting #20 tabs doxycycline hyclate 100 mg capsule 100 mg PO BID 7 day s #14 caps 02/17/24 metronidazole 500 mg tablet 500 mg PO Q12H 7 days #14 tabs 02/17/24 valacyclovir 500 mg tablet 500 mg PO BID 3 days #6 tab s 02/17/24 fluconazole 150 mg tablet 150 mg PO Q3D 2 doses #2 tab s 02/20/24 polyethylene glycol 3350 17 17 g PO DAILY #510 grams 0 05/22/24 gram/dose oral powder (Miralax) pyridoxine (vitamin B6) 25 mg 25 mg PO TID PRN vomitin g/nausea 05/22/24 tablet #90 tabs cephalexin 500 mg capsule 500 mg PO QID 5 days #20 cap s 12/14/24 ondansetron 4 mg disintegrating 4 mg PO Q8H 3 days #9 tabs 06/22/25 tablet cefuroxime axetil 500 mg tablet 500 mg PO Q12H #14 tab s 06/24/25 polyethylene glycol 3350 17 17 g PO DAILY PRN constipa tion 06/24/25 gram/dose oral powder (Miralax) #238 grams Allergies Allergy/AdvReac Type Severity Reaction Status Date / Time No Known Allergies Allergy Verified 06/24/25 15:03 Review of Systems 2 Constitutional: Constitutional: Denies body ache(s), Reports chills and Denies fever(s) Eyes: Eyes: Denies blurry vision ENT: Denies dizziness and Denies dry mouth Cardiovascular: Cardiovascular: Denies chest pain and Denies dyspnea on exertion Respiratory: Respiratory: Denies cough and Denies dyspnea on exertion Gastrointestinal: Gastrointestinal: Reports abdominal pain, Denies melena, Denies hematochezia, Reports constipation, Reports nausea and Denies vomiting Musculoskeletal: Musculoskeletal: Denies back pain Neurologic: Denies dizziness Psychiatric: Psychiatric: Denies anxiety [facility] Past Medical History Medical History Abscess Social History Social History Alcohol intake: never Patient Tobacco Use Status: Never used Tobacco Advance Directives: No Advance Directives Information Provided: Yes Physical Exam ED Vital Signs: Vital Signs - 24 hr 06/24/25 15:02 06/24/25 20:22 Temperature 97.5 F 97.8 F Pulse Rate 72 61 Respiratory Rate 16 18 Blood Pressure 123/58 L 123/56 L Pulse Oximetry 97 100 Oxygen Delivery Method Room Air Room Air BMI result Body Mass Index 20.8 Const General: healthy appearing, comfortable, no acute distress, alert and awake Nutritional Appearance: well nourished Orientation/consciousness: patient oriented x3 HENMT Head: Yes normocephalic and Yes atraumatic Eyes Eyelids: Yes eyelids normal Conjunctivae: conjunctivae normal Sclerae: sclerae normal Corneas: corneas normal Pupils: Equal, round and reactive pupils present EOM: EOMs intact bilaterally Neck Neck: Yes full ROM Resp Effort & Inspection: normal respiratory effort, able to speak in complete sentences and not labored GI Other: Negative CVA tenderness Inspection: No distended Palpation (GI): Soft to palpation, not firm, Tenderness to palpation present (GI) in the LLQ and in the LUQ; not in the RLQ, not in the RUQ and not at McBurney's point, no guarding and not rigid Skin General skin exam: elasticity normal Neuro General: patient oriented x3 Cranial nerves: Yes Equal, round and reactive pupils present and Yes Bilaterally intact EOM present Cognition (Neuro): normal cognition Extrem Other: Moving all extremities well without any obvious deformities Course Course Course Narrative: Rapid medical examination performed in triage by Blanka Hall PA-C. Patient is a 24 year old assigned female at presenting to the emergency department with continued abdominal pain and perceived constipation. Detailed physical exam and review of systems are deferred to the therapeutic specialist. Labs ordered. Patient placed back in the waiting room pending room availability and results. Reevaluation(s) Reevaluation #1: Patient's KUB shows a nonobstructive bowel gas pattern. Given her urinary symptoms we will treat with cefuroxime 40 mg b.i.d. which may also help with any infectious colitis. Patient will be encouraged to take MiraLax Time: 21:14 Medical Decision Making Medical Decision Making MDM Narrative: 24-year-old female with no significant past medical history presents for evaluation of left-sided abdominal pain for the last 3 days. She was seen here 2 days ago, reviewed her previous note as well as imaging. She was diagnosed with colitis and was given supportive treatment with Zofran. She reports feeling constipated, we will get a KUB. Her abdominal exam is quite reassuring, she is tender but no rebound or guarding, no distention. I have a low suspicion for surgical abdomen. Her urinalysis does show 1+ bacteria and she complains of burning with urination flank pain. She may be developing UTI. The patient denies any concern for STIs, we discussed possible pelvic exam but she declined Differential Diagnosis Differential Diagnoses: The differential diagnosis associated with the presentation includes UTI Pyelonephritis Abdominal pain Constipation Colitis Diverticulitis Lab Data [facility] Lab Attestation statement: I reviewed the patient's lab results. No leukocytosis or anemia. Normal platelet count. No significant electrolyte abnormalities warranting intervention. Urinalysis with positive blood. The patient is on her menstrual cycle. There is 1+ bacteria noted 06/24/25 15:10 06/24/25 15:10 Labs: Lab Results 06/24/25 06/24/25 Range/Units 15:10 18:18 WBC 6.6 (4.8-10.8) X10*3/uL RBC 4.22 (4.20-5.50) X10*6/uL Hgb 13.0 (12.0-16.0) g/dl Hct 37.4 (37.0-47.0) % MCV 88.6 (80.0-98.0) fL MCH 30.8 (27.0-33.0) pg MCHC 34.8 (31.0-35.0) g/dl RDW 11.9 (11.0-16.0) % Plt Count 199 (160-400) X10*3/uL MPV 10.3 (9.4-12.3) fL Immature Gran % (Auto) 0.3 (0.0-0.4) % Neut % (Auto) 71.5 (45-73) % Lymph % (Auto) 20.6 (20-40) % [place] % (Auto) 6.4 (2-11) % Eos % (Auto) 0.9 (0-4) % Baso % (Auto) 0.3 (0-2) % Lymph # (Auto) 1.4 (1.2-4.9) X10*3/uL [place] # (Auto) 0.4 (0.1-1.2) X10*3/uL Eos # (Auto) 0.1 (0.0-0.4) X10*3/uL Baso # (Auto) 0.0 (0.0-0.2) X10*3/uL Abs Immat Gran (auto) 0.02 (0.00-0.03) X10*3/uL Absolute Neuts (auto) 4.7 (2.0-8.3) x10*3/uL Absolute Nucleated RBC 0.000 (0.0-0.012) X10*3/uL Nucleated RBC % (auto) 0.0 (0.0-0.2) /100WBC Sodium 140 (135-145) mmol/L Potassium 3.6 (3.3-5.1) mmol/L Chloride 107 (96-108) mmol/L Carbon Dioxide 27 (22-29) mmol/L Anion Gap 10 L (12-20) BUN 12 (9-16) mg/dL Creatinine 0.78 (0.5-1.4) mg/dL Estim Creat Clear Calc 82.5 Estimated GFR > 60 Random Glucose 100 (60-115) mg/dL Calcium 9.2 (8.4-10.2) mg/dL Total Bilirubin 0.6 (0.0-1.0) mg/dL AST 28 (5-31) U/L ALT 21 (0-31) U/L Alkaline Phosphatase 62 (39-117) U/L Total Protein 7.3 (6.5-8.0) g/dL Albumin 4.6 (3.5-5.0) g/dL Urine Color Other A Urine Appearance Clear Urine pH 6.0 (5.0-9.0) Ur Specific [place] 1.010 (1.005-1.025) Urine Protein Trace (Neg-Trace) mg/dL Urine Glucose (UA) Negative (Negative) mg/dL Urine Ketones Trace (Negative) mg/dL Urine Blood Large (3+) H (Negative) Urine Nitrite Negative (Negative) Ur Leukocyte Esterase Trace H (Negative) Urine RBC >20 H (0-2) /HPF Urine WBC 0-5 (0-5) /HPF Ur Squamous Epith Cells 0-2 (0-2) /HPF Urine Bacteria 1+ (None Seen) Hyaline Casts 0-2 (0-2) /LPF Independent Interpretation I performed an independent interpretation of an: Plain X-Ray Interpretation: Moderate stool burden Discharge Plan Discharge Clinical Impression: Abdominal pain, UTI (urinary tract infection) Patient Disposition: Home, Self-Care Instructions: Constipation (ED), Urinary Tract Infection in Women (ED), High Fiber Diet (ED) Prescriptions: New cefuroxime axetil 500 mg tablet 500 mg PO Q12H Qty: 14 0RF polyethylene glycol 3350 [Miralax] 17 gram/dose powder 17 g PO DAILY PRN (Reason: constipation) Qty: 238 0RF No Action ondansetron HCl [Zofran] 4 mg tablet 4 mg PO Q8H PRN (Reason: nausea and vomiting) Qty: 14 0RF dicyclomine 20 mg tablet 20 mg PO BID Qty: 20 0RF metoclopramide HCl [Reglan] 10 mg tablet 10 mg PO Q6H PRN (Reason: nausea and vomiting) Qty: 30 0RF naproxen 500 mg tablet 500 mg PO BID PRN (Reason: pain) 10 Days Qty: 20 0RF yfsahftghb-igllngxwzxsrl-pehu [Fioricet] 50-300-40 mg capsule 1 cap PO Q6H PRN (Reason: pain) 4 Days Qty: 16 0RF Rx Instructions: headache ondansetron 4 mg tablet,disintegrating 4 mg PO Q8H PRN (Reason: nausea and vomiting) Qty: 20 0RF cephalexin 500 mg capsule 500 mg PO TID 7 Days Qty: 21 0RF ibuprofen 600 mg tablet 600 mg PO Q6H PRN (Reason: pain) Qty: 30 0RF cefuroxime axetil 250 mg tablet 250 mg PO BID 7 Days Qty: 14 0RF phenazopyridine [Pyridium] 100 mg tablet 200 mg PO TID 2 Days Qty: 6 0RF ondansetron 4 mg tablet,disintegrating 4 mg PO Q8H 3 Days Qty: 9 0RF nitrofurantoin monohyd/m-cryst [Macrobid] 100 mg capsule 100 mg PO Q12H 5 Days Qty: 10 0RF Rx Instructions: must administer with a meal/food ondansetron 4 mg tablet,disintegrating 4 mg PO Q8H PRN (Reason: nausea and vomiting) Qty: 20 0RF doxycycline hyclate 100 mg capsule 100 mg PO BID 7 Days Qty: 14 0RF metronidazole 500 mg tablet 500 mg PO Q12H 7 Days Qty: 14 0RF valacyclovir 500 mg tablet 500 mg PO BID 3 Days Qty: 6 0RF fluconazole 150 mg tablet 150 mg PO Q3D Qty: 2 0RF polyethylene glycol 3350 [Miralax] 17 gram/dose powder 17 g PO DAILY Qty: 510 0RF pyridoxine (vitamin B6) 25 mg tablet 25 mg PO TID PRN (Reason: vomiting/nausea) Qty: 90 0RF cephalexin 500 mg capsule 500 mg PO QID 5 Days Qty: 20 0RF Print Language: Sinhala
[2025-06-24 15:15] LABS: MANUAL DIFF FLAG NO
[2025-06-24 15:16] LABS: Hematocrit 37.4 % (37.0-47.0); Hemoglobin 13.0 g/dl (12.0-16.0); Imm Gran Abs Auto 0.02 X10*3/uL (0.00-0.03); Imm Gran Pct Auto 0.3 % (0.0-0.4); Lymphocytes Absolute Auto 1.4 X10*3/uL (1.2-4.9); Mean Corpuscular HGB Conc 34.8 g/dl (31.0-35.0); Mean Corpuscular Hemoglobin 30.8 pg (27.0-33.0); Mean Corpuscular Volume 88.6 fL (80.0-98.0); NRBC Abs Auto 0.000 X10*3/uL (0.0-0.012); NRBC Pct Auto 0.0 /100WBC (0.0-0.2); Platelet Count 199 X10*3/uL (160-400); Red Blood Count 4.22 X10*6/uL (4.20-5.50); White Blood Count 6.6 X10*3/uL (4.8-10.8)
[2025-06-24 15:35] LABS: Alanine Aminotransferase 21 U/L (0-31); Albumin Level 4.6 g/dL (3.5-5.0); Alkaline Phosphatase 62 U/L (39-117); Anion Gap 10 (12-20); Aspartate Amino Transferase 28 U/L (5-31); Blood Urea Nitrogen 12 mg/dL (9-16); Calcium 9.2 mg/dL (8.4-10.2); Carbon Dioxide 27 mmol/L (22-29); Chloride 107 mmol/L (96-108); Creatinine Clr Calc Pharmacy 82.5; Estimated Glomerular Filt Rate > 60; Potassium 3.6 mmol/L (3.3-5.1); Sodium 140 mmol/L (135-145); Total Protein 7.3 g/dL (6.5-8.0)
[2025-06-24 18:28] LABS: Appearance Urine Clear; Glucose Urine UA Negative (Negative); PH 6.0 (5.0-9.0); Specific Gravity - Urine 1.010 (1.005-1.025); UMIC TRIGGER UACC YES
--- OUTSIDE RECORDS SUMMARY | 2025-06-24 19:14 | XMS_ITS | Clinical Summary ---
Author Organization [employer] Address [address] [place] [address] Care Team Providers Care Laborer [employer] Name Role Phone Unavailable Primary Care Provider [...] COVID-19 Vaccine (1 - 2023-2 5 season) 2025 Influenza Vaccine (#1) 2025 11/02/2018 Zoster Vaccines [...] patient's age to complete this topic Insurance [facility] C3
[2025-06-24 20:22] VITALS: BP 123/56; PULSE 61; RESP 18; TEMP 36.6; O2SAT 100
[2025-06-24 21:48] VITALS: BP 114/59; PULSE 70; RESP 16; TEMP 36.8; O2SAT 99
[2025-06-24 21:49] VITALS: BP 114/59; PULSE 70; RESP 16; TEMP 36.8; O2SAT 99
== END 2025-06-24 21:49 | disposition home or self-care (01) ==
PROVIDERS: Physician Assistant Medical; Emergency Provider Emergency Medicine Emergency Medical Services
DX: N39.0 Urinary tract infection, site not specified (principal); R10.9 Unspecified abdominal pain; K59.00 Constipation, unspecified
CPT/HCPCS: 36415; 74018; 80053; 81001; 85025; 99283

== ENCOUNTER → 2025-06-24 20:30 | Outpatient (BNV) | payer SELFPAY | PROVIDERS: Emergency Provider Emergency Medicine Emergency Medical Services; Visit Provider Radiology Diagnostic Radiology | DX: R10.84 Generalized abdominal pain (principal) | CPT/HCPCS: 74018 ==

== ENCOUNTER 2025-07-30 17:31 | Emergency (ER) | payer SELFPAY ==
[2025-07-30 18:15] VITALS: BP 136/79; PULSE 66; RESP 14; TEMP 36.3; O2SAT 100; BMI 20.8
[2025-07-30 18:43] LABS: Appearance Urine Clear; Glucose Urine UA Negative (Negative); PH 6.5 (5.0-9.0); Specific Gravity - Urine 1.025 (1.005-1.025); UMIC TRIGGER UACC YES
[2025-07-30 19:02] LABS: COVID-19 Test Negative (Negative); IDNOW Serial# 08D9AD1C
[2025-07-30 19:03] LABS: IDNOW Serial# 58CA691E; Influenza B2 Negative (Negative)
--- OUTSIDE RECORDS SUMMARY | 2025-07-30 20:47 | XMS_ITS | Clinical Summary ---
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
[2025-07-30 20:53] VITALS: BP 106/59; PULSE 71; RESP 16; O2SAT 98
--- NOTE | 2025-07-30 21:56 | ED_ITS ---
HPI - General Adult General Chief complaint: General Medical Stated complaint: Earache/Bodyaches Time Seen by Provider: 07/30/25 21:16 Source: patient Mode of arrival: ambulatory Limitations: no limitations History of Present Illness ED Provider: Gilbert Valverde HPI narrative: 24 yold female presents to the ED for bodyaches and bilateral ear pain. patient states she was exposed to patient with covid. Patient denies any coughing, chest pain, or shorntess of breath. Patient also state dysuria without any vaginal discharge, lesions, abdominal pain, nausea, vomitting, flank pain, fever, unpro tected sex, or chills. Related Data Previous Rx's ?Medication ?Instructions ?Recorded dicyclomine 20 mg tablet 20 mg PO BID Abdominal pain #20 03/19/21 tabs metoclopramide HCl 10 mg tablet 10 mg PO Q6H PRN nause a and 03/19/21 (Reglan) vomiting #30 tabs ondansetron HCl 4 mg tablet 4 mg PO Q8H PRN nausea and 03/19/21 (Zofran) vomiting #14 tabs iyxgklpqzy-lycfcfbzdmrzb-ulfuhesu 1 cap PO Q6H PRN dorys n 4 days #16 09/27/21 50 mg-300 mg-40 mg capsule caps (Fioricet) naproxen 500 mg tablet 500 mg PO BID PRN pain 10 da ys #20 09/27/21 tabs cephalexin 500 mg capsule 500 mg PO TID 7 days #21 cap s 04/28/22 ibuprofen 600 mg tablet 600 mg PO Q6H PRN pain #30 t abs 04/28/22 cefuroxime axetil 250 mg tablet 250 mg PO BID 7 days # 14 tabs 05/15/22 phenazopyridine 100 mg tablet 200 mg (2 x 100 mg) PO T ID 2 days 05/15/22 (Pyridium) #6 tabs ondansetron 4 mg disintegrating 4 mg PO Q8H PRN nausea and 05/26/22 tablet vomiting #20 tabs nitrofurantoin 100 mg PO Q12H 5 days #10 ca ps 02/24/23 monohydrate/macrocrystals 100 mg capsule (Macrobid) ondansetron 4 mg disintegrating 4 mg PO Q8H PRN nausea and 02/24/23 tablet vomiting #20 tabs doxycycline hyclate 100 mg capsule 100 mg PO BID 7 day s #14 caps 02/17/24 metronidazole 500 mg tablet 500 mg PO Q12H 7 days #14 tabs 02/17/24 valacyclovir 500 mg tablet 500 mg PO BID 3 days #6 tab s 02/17/24 fluconazole 150 mg tablet 150 mg PO Q3D 2 doses #2 tab s 02/20/24 polyethylene glycol 3350 17 17 g PO DAILY #510 grams 0 05/22/24 gram/dose oral powder (Miralax) pyridoxine (vitamin B6) 25 mg 25 mg PO TID PRN vomitin g/nausea 05/22/24 tablet #90 tabs cephalexin 500 mg capsule 500 mg PO QID 5 days #20 cap s 12/14/24 ondansetron 4 mg disintegrating 4 mg PO Q8H 3 days #9 tabs 06/22/25 tablet cefuroxime axetil 500 mg tablet 500 mg PO Q12H #14 tab s 06/24/25 polyethylene glycol 3350 17 17 g PO DAILY PRN constipa tion 06/24/25 gram/dose oral powder (Miralax) #238 grams carbamide peroxide 6.5 % ear drops 5 drp otic (ears) Q 12H 4 days #15 07/30/25 (Debrox) mL naproxen 500 mg tablet 500 mg PO BID PRN pain #14 t abs 07/30/25 phenazopyridine 200 mg tablet 200 mg PO TID 6 doses #6 tabs 07/30/25 (Pyridium) Allergies Allergy/AdvReac Type Severity Reaction Status Date / Time No Known Allergies Allergy Verified 07/30/25 18:18 Review of Systems Review of Systems: bilateral ear pain, bodayches, and dyuria Yes all other systems are reviewed and are negative [facility] Past Medical History Medical History Abscess Social History Social History Alcohol intake: never Patient Tobacco Use Status: Never used Tobacco Advance Directives: No Advance Directives Information Provided: No Physical Exam ED Vital Signs: Vital Signs - 24 hr 07/30/25 20:53 07/30/25 23:12 Temperature 0 F L Pulse Rate 71 71 Respiratory Rate 16 16 Blood Pressure 106/59 L 106/59 L Pulse Oximetry 98 98 Oxygen Delivery Method Room Air Room Air BMI result Body Mass Index 20.8 Const General: cooperative, healthy appearing, comfortable, no acute distress, well developed, alert, awake and Physically active Orientation/consciousness: patient oriented x3 [facility] Head: Yes normal to inspection, Yes No palpable skull fracture present, Yes normocephalic and Yes atraumatic Ears: hearing grossly normal bilaterally, external ears normal, mastoids normal, no periauricular adenopathy and Abnormal EAC present cerumen impaction bilateral Throat: Yes posterior oropharynx normal, Yes tonsils normal and Yes uvula midline Eyes General: appearance normal, both eyes and all related structures Visual Rizo: normal visual rizo by confrontation Alignment and Position: alignment normal Periorbital: periorbital findings normal Eyelids: Yes eyelids normal Conjunctivae: conjunctivae normal Sclerae: sclerae normal Corneas: corneas normal Neck Neck: Yes normal visual inspection, Yes full ROM, Yes no lymphadenopathy, Yes no meningeal signs, Yes trachea midline, Yes supple, No anterior neck swelling and No tender Chest Chest palpation & inspection: normal inspection of the chest and normal palpation of entire chest wall Resp Effort & Inspection: normal respiratory effort and able to speak in complete sentences Auscultation: clear to auscultation bilaterally Cardio Jugular venous distension: no JVD Heart sounds: S1 normal heart sound present and S2 normal heart sound present GI Inspection: Yes normal to inspection Palpation (GI): Soft to palpation, not firm, nontender, no guarding and not rigid General: Yes no CVA tenderness Back/Spine/Pelvis Back: no CVA tenderness and No back tenderness Skin General skin exam: no rashes or lesions noted, elasticity normal and turgor normal Neuro General: patient oriented x3, gait normal, tone normal, moves all extremities, Normal light touch and pain sensation, no meningeal signs, no focal motor deficits, CN's II-XI intact bilaterally and normal sensation to monofilament Extrem General: Yes normal to inspection, Yes full ROM and Yes capillary refill normal Psych Appearance: grossly normal, well kempt and not disheveled Medical Decision Making Medical Decision Making MDM Narrative: [age] year female presents to ED for bilateral ear pain. Ear exam shows cerumen impaction. SOB and still fine. Abdomen is soft benign nontender. Negative for CVA flanks or back pain. Patient not in distress. PEnding . UA shows mild blood, but no nitirte or luekoesterase. covid, influenza is negative. Patient is not in distress. We will discharged with Debrox and Pyridium. Not suspecting ectopic , pyelonephritits, appe ndicitis, peritonsillar abscess, hypoxia, mastoiditits, ovarian torions, tubo ovarian abscess, or any life threatening etiology. Differential Diagnosis Differential Diagnoses: The differential diagnosis associated with the presentation includes (UTI, otitis media, strep, ) Admission/Observation Consideration of admission/observation: Escalation of care including admission/observation considered Lab Data MDM Lab Attestation statement: I reviewed the patient's lab results. Labs: Lab Results 07/30/25 07/30/25 Range/Units 18:32 22:39 Urine Color Yellow Urine Appearance Clear Urine pH 6.5 (5.0-9.0) Ur Specific [place] 1.025 (1.005-1.025) Urine Protein Trace (Neg-Trace) mg/dL Urine Glucose (UA) Negative (Negative) mg/dL Urine Ketones Trace (Negative) mg/dL Urine Blood Trace H (Negative) Urine Nitrite Negative (Negative) Ur Leukocyte Esterase Negative (Negative) Urine RBC 3-5 H (0-2) /HPF Urine WBC 0-5 (0-5) /HPF Ur Squamous Epith Cells 6-10 (0-2) /HPF Urine Bacteria 1+ (None Seen) Hyaline Casts 0-2 (0-2) /LPF Urine Test NEGATIVE (NEGATIVE) COVID-19 (ORTIZ) Negative (Negative) COVID-19 Clin Com See Note Influenza Type A (BLANCO) Negative (Negative) Influenza Type B (BLANCO) Negative (Negative) Influenza A & B Note See Note S. pyogenes GrpA [facility]ANCO Negative (Negative) Independent Historian Clinical information obtained from an independent historian. History obtained from or confirmed by: Other (patient) Prescription Management I considered prescription management with: Other (debrox pyridium) Discharge Plan Discharge Clinical Impression: Ear pain, Cerumen impaction, Dysuria Patient Disposition: Home, Self-Care Instructions: Earache (ED), Dysuria (ED) Additional Instructions: Recommend follow-up with your primary care provider. Return to the ED immediately for any chest pain, shortness of breath, abdominal pain, flank pain, fever, chills, nausea, vomiting, vaginal bleeding, vaginal lesions, blood in urine, worsening ear pain, headache, dizziness, rash, decreased appetite, any other concerning symptoms. Prescriptions: New Debrox 6.5 % drops 5 drp otic (ears) Q12H 4 Days Qty: 15 0RF phenazopyridine [Pyridium] 200 mg tablet 200 mg PO TID Qty: 6 0RF naproxen 500 mg tablet 500 mg PO BID PRN (Reason: pain) Qty: 14 0RF No Action ondansetron HCl [Zofran] 4 mg tablet 4 mg PO Q8H PRN (Reason: nausea and vomiting) Qty: 14 0RF dicyclomine 20 mg tablet 20 mg PO BID Qty: 20 0RF metoclopramide HCl [Reglan] 10 mg tablet 10 mg PO Q6H PRN (Reason: nausea and vomiting) Qty: 30 0RF naproxen 500 mg tablet 500 mg PO BID PRN (Reason: pain) 10 Days Qty: 20 0RF mkhvjjatii-slvmwvcrvaurx-elfs [Fioricet] 50-300-40 mg capsule 1 cap PO Q6H PRN (Reason: pain) 4 Days Qty: 16 0RF Rx Instructions: headache ondansetron 4 mg tablet,disintegrating 4 mg PO Q8H PRN (Reason: nausea and vomiting) Qty: 20 0RF cephalexin 500 mg capsule 500 mg PO TID 7 Days Qty: 21 0RF ibuprofen 600 mg tablet 600 mg PO Q6H PRN (Reason: pain) Qty: 30 0RF cefuroxime axetil 250 mg tablet 250 mg PO BID 7 Days Qty: 14 0RF phenazopyridine [Pyridium] 100 mg tablet 200 mg PO TID 2 Days Qty: 6 0RF ondansetron 4 mg tablet,disintegrating 4 mg PO Q8H 3 Days Qty: 9 0RF cefuroxime axetil 500 mg tablet 500 mg PO Q12H Qty: 14 0RF polyethylene glycol 3350 [Miralax] 17 gram/dose powder 17 g PO DAILY PRN (Reason: constipation) Qty: 238 0RF nitrofurantoin monohyd/m-cryst [Macrobid] 100 mg capsule 100 mg PO Q12H 5 Days Qty: 10 0RF Rx Instructions: must administer with a meal/food ondansetron 4 mg tablet,disintegrating 4 mg PO Q8H PRN (Reason: nausea and vomiting) Qty: 20 0RF doxycycline hyclate 100 mg capsule 100 mg PO BID 7 Days Qty: 14 0RF metronidazole 500 mg tablet 500 mg PO Q12H 7 Days Qty: 14 0RF valacyclovir 500 mg tablet 500 mg PO BID 3 Days Qty: 6 0RF fluconazole 150 mg tablet 150 mg PO Q3D Qty: 2 0RF polyethylene glycol 3350 [Miralax] 17 gram/dose powder 17 g PO DAILY Qty: 510 0RF pyridoxine (vitamin B6) 25 mg tablet 25 mg PO TID PRN (Reason: vomiting/nausea) Qty: 90 0RF cephalexin 500 mg capsule 500 mg PO QID 5 Days Qty: 20 0RF Referrals: [facility] [Provider Group, Urology] - 2 days Referral Note: dysuria, slight blood in urine Clinical Impression: Cerumen impaction; Ear pain; Dysuria Stand Alone Forms: Work/School Release Interventions: ED Discharge Assessment Last Done: 07/30/25 23:12 Discharge Date/Time: 07/30/25 23:12 Print Language: Mongolian
[2025-07-30 22:28] LABS: UPreg QC Valid YES
[2025-07-30 22:57] LABS: IDNOW Serial# 55D5AD1C; Strep A Nucleic Acid Negative (Negative)
[2025-07-30 23:12] VITALS: BP 106/59; PULSE 71; RESP 16; TEMP -17.7; TEMP 0; O2SAT 98
== END 2025-07-30 23:12 | disposition home or self-care (01) ==
PROVIDERS: Physician Assistant; Emergency Provider Emergency Medicine Emergency Medical Services
DX: H92.03 Otalgia, bilateral (principal); H61.23 Impacted cerumen, bilateral; R30.0 Dysuria; Z03.818 Encounter for observation for suspected exposure to other biological agents ruled out
CPT/HCPCS: 81001; 81025; 87502; 87635; 87651; 99283

== ENCOUNTER 2025-09-30 17:13 | Emergency (ER) | payer OTHER, SELFPAY ==
--- OUTSIDE RECORDS SUMMARY | 2025-09-24 22:31 | XMS_ITS | Continuity of Care Document ---
Author Organization [facility] ter Address [address] [place] [id number]- Care Team Providers Care Credit Collection Associate Name Role Phone Not on Staff, PCP Primary Care Physician Unavail able Encounter [facility] [place] Date(s): 09/24/25 - 09/24/[address] [address]- Discharge Disposition: A-D/C Home Attending Physician: Elmer Lowry MD Admitting Physician: Elmer Lowry MD Referring Physician: Not on Staff, Referring MD Encounter Type: Disch ES Allergies, Adverse Reactions, Alerts No Known Allergies Medications oxyCODONE 5 mg oral capsule 1 capsule = 5 mg, By Mouth, Every 12 hours, PRN as needed for pain, for 3 days, This medication is sedating. Do not drink alcohol, drive or work when taking medication., # 6 capsule, 0 Refills, Acute09/27/25 9:54:00 PM EST, 09/24/25 9:54:00 PM EST, Capsule, [id number], Partial fillupon patient request if the prescription is for a schedule II opioid drug. Start Date: 09/24/25 Stop Date: 09/27/25 Status: Ordered Medication Dispense Status: Completed Quantity: 6.0 Unit: capsule Total Allowed Fills: 1 Fills Dispensed: 0 Mental Status Mental Status Assessment Assessment Assessment Component Result Effecti ve Date Alvaton coma score total 15 09/24/25 Mental Status Assessment Assessment Assessment Component Result Effecti ve Date Alvaton coma score total 15 09/24/25 Results Radiology Reports * Exam Date Time Procedure Performing Provider Status 09/24/25 7:52 PM Hand Min 3 Views Right Au th (Verified) Notes: (Hand Min 3 Views Right) Reason For Exam: Pain RESULT: Hand Min 3 Views Right Wrist Comp Min 3 Views Right, Hand Min 3 Views Right Hx of Present Illness: s p R hand to injury - stuck in conveyor belt; Reason: Pain; Clinical Question(s): Fracture - COMPARISON: None. FINDINGS: No fracture or dislocation. Normal carpal configuration. Intact radial and ulnar styloid processes. No arthritic change. Mild soft tissue swelling over the dorsal aspect of the hand. IMPRESSION: No acute fractures or dislocations. WSN: [id number] Ordering Physician: Brigitte King Dictated By: Ruben Hernandez DO Dictated Date/Time: 09/24/25 8:14 pm Reviewed By: Ruben Hernandez DO Signed By: Ruben Hernandez DO Signed Date/Time: 09/24/25 8:14 pm Transcribed By: ONEIL Transcribed Date/Time: 09/24/25 8:13 pm * Exam Date Time Procedure Performing Provider Status 09/24/25 7:53 PM Wrist Comp Min 3 Views Right Auth (Verified) Notes: (Wrist Comp Min 3 Views Right) Reason For Exam: Pain RESULT: Wrist Comp Min 3 Views Right Wrist Comp Min 3 Views Right, Hand Min 3 Views Right Hx of Present Illness: s p R hand to injury - stuck in conveyor belt; Reason: Pain; Clinical Question(s): Fracture - COMPARISON: None. FINDINGS: No fracture or dislocation. Normal carpal configuration. Intact radial and ulnar styloid processes. No arthritic change. Mild soft tissue swelling over the dorsal aspect of the hand. IMPRESSION: No acute fractures or dislocations. WSN: [id number] Ordering Physician: Brigitte King Dictated By: Ruben Hernandez DO Dictated Date/Time: 09/24/25 8:14 pm Reviewed By: Ruben Hernandez DO Signed By: Ruben Hernandez DO Signed Date/Time: 09/24/25 8:14 pm Transcribed By: ONEIL Transcribed Date/Time: 09/24/25 8:13 pm Vital Signs Most recent to oldest [Reference Range]: 1 2 Oxygen Saturation [94-100 %] 100 % (09/24/25 9:20 PM) 100 % (09/24/25 7:01 PM) Pulse Rate [55-90 bpm] 86 bpm (09/24/25 9:20 PM) 81 bpm (09/24/25 7:01 PM) Blood Pressure [90-138/55-84 mm Hg] 112/ 71mm Hg (09/24/25 9:20 PM) 103/61mm Hg (09/24/25 7:01 PM) Respiratory Rate [16-30 br/min] 20 br/mi n (09/24/25 9:20 PM) 20 br/min (09/24/25 7:01 PM) Temperature [96.8-100.4 DegF] 98.2 DegF (09/24/25 9:20 PM) 97.9 DegF (09/24/25 7:01 PM) Mode of Delivery (Oxygen) Room air (09/24/25 9:20 PM) Room air (09/24/25 7:01 PM) Temperature Route Oral (09/24/25 9:20 PM) Oral (09/24/25 7:01 PM) Social History Social History Type Response Sex Sex Representation Female (finding) Status Unknown Consult note * Lg Benton: PERFORM Event Display: Consultation Note Authored Date: Patient: ??CONCEPCION BERRY ? Age:??24 Years?Sex:??Female?:??2000?LOC:??[facility]?? Chief Complaint/Reason for Consult pt presenting to the ED from work, is a camargo. went to clean ARKeXyor belt and towel got stuck, hand for stuck in machine. waited 30 minutes and called ems. +CMS, bruising to hand. +20g LAC History of Present Illness 24-year-old female with no significant past medical history seen today regarding right hand injury.??Patient sustained this injury when she was at work. 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 ??Reports her hand became trapped between with a crushing type injury. ??Hand was stuck in this position for approximately 30 minutes??until??belt could be removed.?? Patient is right-hand dominant.?? Complains of paresthesias about the hand.?? Denies history of difficulty with the right hand prior to this incident. ??Hand consultation requested by Dr. Lowry. Review of Systems Denies loss of consciousness shortness of breath Physical Exam Vitals & Measurements T:??98.2?F?? HR:??86??(Peripheral)?? RR:??20?? BP:??112/71?? SpO2:??100%?? 24-year-old female no acute distress alert and oriented accompanied by her mother. ??On examinationof the right hand mild swelling and early bruising appreciated especially about the dorsal aspect of the hand. ??Patient able to initiate range of motion was very limited secondary to discomfort.?? Patient is sensate to light touch. ??Good capillary refill is noted.?? Compartments are soft. Assessment/Plan Assessment:??Crush injury right hand:??At this time??no evidence of compartment syndrome, bony or tendinous injury appreciated.??Patient will elevate and ice the hand.??She will work on range of motion as able to tolerate.??She will follow-up with Dr. Day??who can be reached at [phone] for repeat evaluation.??Should she have further difficulty??prior to the time of that visit she will return to the ER for repeat examination. ?? Procedure/Surgical History No qualifying data available. Home Medications Oxycodone: 5 mg = 1 capsule, By Mouth, Every 12 hours, PRN (as needed for pain), This medication issedating. Do not drink alcohol, drive or work when taking medication. Allergies NKA Family History No family history recorded. Patient Instructions ?? You were seen in the ED for a right hand injury?? Xray??did not show a fracture Labs were okay?? You were evaluated by orthopedics?? You may have some underlying tendon injuries? Rest, ice for 15-20 minutes 3-4 times/day Keep your hand elevated Take OTC Tylenol 650mg every 6-8 hrs as needed for pain, take with food Take OTC Ibuprofen 600mg every 6-8 hrs as needed for pain, take with food?? Take Oxycodone 5mg every 6-8 hrs as needed for increased pain. This medication is sedating. Do not drink alcohol, drive or work when taking this medication.?? Follow up with hand surgery, call for appt Return to ED sooner for increased pain pain, weakness, paresthesias, color changes, difficulty moving the hand or as needed for additional concerns?? Radiology 3 views of the right wrist and right hand are reviewed revealing no evidence of acute fracture or dislocation Lab Results Labs Last 24 Hours BLOOD COUNT & DIFF ? Event Name?? Event Result?? Date/Time?? WBC 12.6 k/mm3??High 09/24/25 20:37:00 RBC 4.16 m/mm3??Low 09/24/25 20:37:00 Hgb 12.6 Gm/dL 09/24/25 20:37:00 Hct 36.6 % 09/24/25 20:37:00 MCV 88 femtoliters 09/24/25 20:37:00 MCH 30.3 pg 09/24/25 20:37:00 MCHC 34.4 Gm/dL 09/24/25 20:37:00 Platelet Count 185 k/mm3 09/24/25 20:37:00 MPV 10.1 femtoliters 09/24/25 20:37:00 Nucleated RBC (Automated) 0 #/100 WBC'S 09/24/25 20:37:00 ? CHEM GENERAL ? Event Name?? Event Result?? Date/Time?? Sodium 139 mmol/L 09/24/25 20:37:00 Chloride 106 mmol/L 09/24/25 20:37:00 Bicarbonate Level 18 mmol/L??Low 09/24/25 20:37:00 Anion Gap 15 mmol/L 09/24/25 20:37:00 Glucose Level 98 mg/dL 09/24/25 20:37:00 BUN 14 mg/dL 09/24/25 20:37:00 Creatinine-Blood 0.67 mg/dL 09/24/25 20:37:00 Alkaline Phosphatase 62 units/L 09/24/25 20:37:00 AST (SGOT) 20 units/L 09/24/25 20:37:00 ALT (SGPT) 11 units/L 09/24/25 20:37:00 Bilirubin, Total 0.3 mg/dL 09/24/25 20:37:00 ? Electronically Signed on 12/09/25 10:41 PM Lg Benton Note * Christine GOFF, Brigitte Olivas: PERFORM Event Display: Patient Education Leaflets Authored Date: [id number] [facility] ?? [id number] Oxicodona ADVERTENCIA: La oxicodona puede ser adictiva. No tome elizabeth cantidad mayor o kurt, no lo tome con mayor frecuencia, no suspenda root uso abruptamente ni lo tome de elizabeth manera diferente a la indicada por root m??dico. Informe a root m??dico si usted o alguien de root sen alfredito o mireles bebido grandes cantidades de alcohol, consume o mireles consumido drogas ilegales, mireles consumido en exceso medicamentos recetados o mireles sufridouna sobredosis, o si tiene o mireles tenido depresi??n u otra enfermedad mental. La oxicodona puede ocasionar problemas de respiraci??n graves o que pongan en riesgo la kim, especialmente rony las primeras 24 a 72 horas de root tratamiento y en cualquier momento en que se incremente root dosis. Si experimenta algunos de los siguientes s??ntomas, llame a root m??dico inmediatamente o busque tratamiento m??dico de emergencia: respiraci??n lenta, pausas prolongadas entre respiraciones o dificultad para respirar. La oxicodona puede da??ar u ocasionar la muerte a otras personas que tomen root medicamento, especialmente a los ni??os. Conserve la oxicodona en un lugar seguro, de manera que nadie m??s pueda tomarloaccidentalmente o a prop??sito. La combinaci??n de ciertos medicamentos, alcohol o drogas il??citas con oxicodona puede elevar el riesgo de sufrir alteraciones respiratorias graves que comprometan la kim, sedaci??n intensa o estado de coma. Informe a root m??dico y a root farmac??utico qu?? otros medicamentos con y sin receta m??dica, vitaminas, suplementos nutricionales y productos a base de plantas maxine o tiene planificado juan carlos. Es posible que root m??dico tenga que cambiar las dosis de ramona medicamentos y que lo supervise atentamente. En sathya de estar tomando las tabletas de oxicodona de acci??n prolongada, tr??guelas enteros; no las mastique, rompa, parta, pulverice ni disuelva, dado que de lo contrario podr??a absorber elizabeth cantidad excesiva del f??rmaco de manera s??zita en vez de forma sostenida rony 12 horas. Roca puede causar problemas graves, incluyendo elizabeth sobredosis y la muerte. Aseg??rese de conocer la dosis en mililitros que root m??dico le mireles prescrito. Utilice la copa dosificadora, la jeringa oral o el gotero que viene con root medicamento para medir atentamente el n??wan de mililitros de soluci??n que root m??dico le recet??. Consulte a root m??dico o farmac??utico si tiene alguna colin sobre c??mo medir root dosis o la cantidad de medicamento que debe juan carlos. Podr??a experimentar efectos secundarios graves o que pongan en peligro root kim si maxine elizabeth cantidad diferente de medicamento a la que le recet?? root m??dico. informe a root m??dico si est?? embarazada o planea quedar embarazada. Si maxine oxicodona regularmentedurante root embarazo, root beb?? puede experimentar s??ntomas de abstinencia que pongan en riesgo root kim despu??s del nacimiento. Root m??dico o farmac??utico le proporcionar?? la Gu??a de Medicamentos al surtir root receta m??dica. Melissa detenidamente la informaci??n y p??elaina a root m??dico o a root farmac??utico que le aclaren cualquier colin. Tambi??n puede visitar (https://www.fda.gov/Drugs/DrugSafety/meo607915.htm) o el sitio web del fabricante para obtener la Gu??a del medicamento. Hable con root m??dico sobre los riesgos de juan carlos oxicodona. ??PARA CU? LES condiciones o enfermedades se prescribe tita medicamento? La oxicodona se utiliza para aliviar el dolor intenso. La oxicodona pertenece a elizabeth clase de medicamentos llamados analg??sicos opioides (narc??ticos). Root acci??n consiste en cambiar la forma en que el cerebro y el sistema nervioso responden al dolor. ??C??MO se debe usar tita medicamento? La presentaci??n de la oxicodona es en soluci??n (l??quido), tabletas, c??psulas, tabletas de liberaci??n prolongada y c??psulas de liberaci??n prolongada (acci??n prolongada) para administraci??n oral. La soluci??n, las tabletas y las c??psulas se administran cada 4 a 6 horas, con o sin alimentos,de acuerdo con la intensidad del dolor. Las tabletas y las c??psulas de acci??n prolongada se recetan para el manejo del dolor persistente y se macie cada 12 horas. Las c??psulas se administran juntocon alimentos, en tanto que las tabletas pueden tomarse independientemente de las comidas. Si est?? tomando tabletas de liberaci??n prolongada, tr??guelas de elizabeth en elizabeth con abundante agua. Trague la tableta inmediatamente despu??s de ponerla en root boca. No remoje, moje ni lama las tabletasantes de introducirlas en root boca. No mastique ni triture las tabletas de liberaci??n prolongada. Si tiene problemas para tragar las c??psulas de liberaci??n prolongada, puede abrir la c??psula concuidado y espolvorear el contenido sobre alimentos blandos malvin compota de manzana, pudin, yogur, helado o mermelada. Consuma la mezcla inmediatamente. Deseche inmediatamente las c??psulas vac??as tir??ndolas por el inodoro. No almacene la mezcla para root uso futuro. Si tiene elizabeth sonda de alimentaci??n, el contenido de la c??psula de liberaci??n prolongada puede verterse en la sonda. Pregunte a root m??dico c??mo debe juan carlos el medicamento, y siga atentamente estas instrucciones. Root m??dico puede ajustar root dosis de oxicodona rony el tratamiento, seg??n el lakhwinder de control del dolor y los efectos secundarios que experimente. Informe a root m??dico si siente que root dolor no est?? controlado o si aumenta, empeora o si tiene un nuevo dolor o un aumento de la sensibilidad al dolor rony root tratamiento con morfina. No tome elizabeth cantidad mayor del medicamento, ni lo tome con m??s frecuencia de la que root m??dico le indique. Consulte a root m??dico o farmac??utico sobre el acceso a medicamentos de rescate, malvin naloxona o nalmefeno, mientras maxine oxicodona. Los medicamentos de rescate pueden revertir los efectos graves de elizabeth sobredosis de opioides y est??n disponibles sin receta o con prescripci??n m??dica. Aseg??rese de que usted, ramona familiares y las personas que suelen estar a root alrededor sepan c??mo reconocer unasobredosis, c??mo usar naloxona o nalmefeno y qu?? hacer hasta que llegue la ayuda m??dica de emergencia. Root m??dico o farmac??utico le mostrar?? a usted y a otras personas c??mo usarlo. Si se presentan s??ntomas de elizabeth sobredosis, deben administrar la primera dosis de naloxona, llamar al 911 de inmediato y permanecer con usted, rodriguez??ndolo de cerca hasta que llegue la ayuda m??dica de emergencia. Si ramona s??ntomas reaparecen, la persona debe administrarle otra dosis del medicamento de rescate.Se pueden administrar dosis adicionales cada 2 o 3 minutos si los s??ntomas reaparecen antes de quellegue la ayuda m??dica. Si mireles estado tomando oxicodona regularmente, no suspenda root uso ni reduzca la dosis de manera abrupta sin consultar previamente con root m??dico. Si sarai de juan carlos oxicodona repentinamente, puede experimentar s??ntomas de abstinencia malvin inquietud, ojos llorosos, secreci??n nasal, estornudos, bostezos, sudoraci??n, escalofr??os, aleena musculares o articulares, debilidad, irritabilidad, ansiedad, depresi??n, dificultad para conciliar el francisca??o o para permanecer dormido, calambres, n??useas, v??mitos, diarrea, p??rdida de apetito, ritmo card??aco acelerado y respiraci??n acelerada. Es probable que root m??dico disminuya root dosis gradualmente. ??Qu?? OTRO USO se le da a tita medicamento? A veces se receta tita medicamento para otros usos; p??elaina m??s informaci??n a root m??dico o a root farmac??utico. ??Cu??les son las PRECAUCIONES ESPECIALES que cherise seguir? Antes de juan carlos oxicodona, ??? informe a root m??dico o farmac??utico si es al??rgico a tita medicamento, a cualquier componentede tita medicamento o a cualquier otro medicamento, alimento o sustancia. Informe a root m??dico o farmac??utico si tiene alguna alergia o si mireles experimentado alg??n s??ntoma. ??? Algunos medicamentos no deben tomarse con oxicodona. Aseg??rese de haberle informado a root m??dico y farmac??utico qu?? med icamentos est?? tomando o piensa juan carlos antes de empezar root tratamiento con oxicodona. Antes de comenzar, suspender o cambiar cualquier medicamento mientras maxine oxicodona, cons??ltelo con root m??dico o farmac??utico. ??? informe a root m??dico o farmac??utico si est?? tomando los siguientes medicamentos o rick?? de tomarlos en las ??ltimas dos semanas: isocarboxazida, linezolid, elo de metileno, fenelzina, selegilina o tranilcipromina. ??? los siguientes productos de venta rob o a base de plantas pueden interactuar con la oxicodona: hierba de [place] y tript??fano. Aseg??rese de informar a sum??dico y farmac??utico que est?? tomando estos medicamentos antes de empezar root tratamiento con oxi codona. No empiece a juan carlos estos medicamentos mientras est?? tomando oxicodona sin consultarlo antes con root m??dico. ??? informe a root m??dico si presenta o mireles presentado respiraci??n enlentecida, asma, enfermedad pulmonar obstructiva cr??chandler (EPOC) u otros problemas pulmonares, obstrucci??n o estrechamiento g??strico o intestinal. Root m??dico probablemente le dir?? que no tome oxicodona. ??? informe a root m??dico si tiene o mireles tenido trauma craneal, tumor intracraneal o alg??n trastorno que eleve la presi??n en el cerebro ; convulsiones; retenci??n urinaria; o enfermedad del coraz??n, ri??ones, h??gado, p??ncreas, tiroides o ves??cula biliar. En el sathya de que tome productos de liberaci??n pr olongada, informe tambi??n a root m??dico si tiene o mireles tenido alguna vez dificultad para tragar, diverticulitis (afecci??n en la que se nadira stew??as bolsas en los intestinos que se inflaman e infectan), c??ncer de colon (c??ncer que se origina en el intestino grueso) o c??ncer de es??fago (c??ncer que se origina en el conducto que conecta la boca y el est??breanna). ??? informe a root m??dico si est?? embarazada, planea quedar embarazada o est?? en per??odo de lactancia. Llame a root m??dico de inmediato si queda embarazada mientras usa oxicodona. ??? debe saber que tita medicamento puede disminuir la fertilidad en hombres y mujeres. Hable con root m??dico sobre los riesgos de juan carlos oxicodona. ??? debe saber que tita medicamento le puede ocasionar somnolencia. No conduzca autom??viles, no operemaquinaria pesada ni participe en otras actividades posiblemente peligrosas hasta que sepa c??mo leafecta tita medicamento. ??? es importante que evite consumir bebidas alcoh??licas mientras est?? tomando productos de oxicodona. El alcohol puede empeorar los efectos secundarios de la oxicodona. ??? debe saber que la oxicodona puede causar mareos, aturdimiento y desmayos cuando se levanta demasiado r??pido despu??s de estar acostado. Para ayudar a evitar tita problema, lev??ntese de la cama despacio, apoyando ramona pies en el suelo por unos minutos antes de ponerse de pie. ??? debe saber que la oxicodona puede ocasionar estre??imiento. Hable con root m??dico para cambiar root dieta o usar otros medicamentos para evitar o tratar el estre??imiento mientras est?? tomando oxicodona. ??Qu?? DIETA ESPECIAL cherise seguir mientras stefanie tita medicamento? No es necesario que cambie root dieta, a menos que root m??dico le indique que debe hacerlo. ??Qu?? tengo que hacer SI ME OLVIDO de juan carlos elizabeth dosis? Si est?? tomando oxicodona de forma regular, tome la dosis que olvid?? ross pronto malvin lo recuerde.Sin embargo, si ya yuki es hora de la dosis siguiente, omita la que olvid?? y contin??e con root horario de medicaci??n habitual. No duplique la dosis para compensar la que omiti??. No tome m??s de unadosis de las tabletas o c??psulas de liberaci??n prolongada en 12 horas. ??Cu??les son los EFECTOS SECUNDARIOS que podr??a provocar tita medicamento? Algunos efectos secundarios pueden ser graves. Si experimenta algunos de estos s??ntomas o los que se mencionan en la secci??n ADVERTENCIA IMPORTANTE, llame a root m??dico inmediatamente o busque tratamiento m??dico de emergencia: ??? dolor en el pecho, cambios en el ritmo card??aco. ??? agitaci??n, alucinaciones (hilario cosas o escuchar voces que no existen), fiebre, sudoraci??n, confusi??n, ritmo card??aco acelerado, temblores,espasmos o rigidez muscular intensa, p??rdida de coordinaci??n o diarrea ??? n??usea, v??mitos, falta de apetito, debilidad o mareos ??? dolor nuevo o dolor al tocarse o al realizar tareas cotidianas, malvin peinarse ??? erupci??n cut??luba, picaz??n, urticaria, ronquera, dificultad para respirar o tragar, o hinchaz??n de la nick, boca, lengua, labios o garganta ??? dificultad para tragar, regurgitaci??n (retorno de alimentos ingeridos hacia la garganta y la boca), dolor en la lali del pecho ??? convulsiones ??? somnolencia extrema ??? ronquidos inusuales o pausas prolongadas rony la respiraci??n mientras duerme Si experimenta un efecto secundario grave, usted o root m??dico puede enviar un informe al programa de Informes de Eventos Adversos de [employer] de la Administraci??n de Drogas y Alimentos (FDA) en l??luba (https://www.fda.gov/Safety/MedWatch) o por tel??fono al ( ). La oxicodona puede ocasionar otros efectos secundarios. Llame a root m??dico si experimenta alg??n problema inusual mientras maxine tita medicamento. ??C??mo cherise ALMACENAR o DISPONER de tita medicamento? Mantenga tita medicamento en root envase original, triston cerrado, fuera del alcance de los ni??os y enun lugar que no sea de f??cil acceso para otras personas, incluidas aquellas que le visiten en casa. Gu??rdelo a temperatura ambiente y alejado tere y del exceso de calor y humedad (no en el cuarto de ba??o). Guarde los productos de oxicodona en un lugar seguro de manera que nadie m??s pueda tomarla accidentalmente o a prop??sito. Lleve un control de cu??ntas tabletas o soluci??n le quedan para que pueda darse cuenta si alguna falta. Lleve los medicamentos de oxicodona que hayan vencido o que ya no requiera a un punto de recolecci??n farmac??utica. Si no tiene acceso inmediato a un programa de recolecci??n de medicamentos, elimine la oxicodona arroj??ndola al inodoro para impedir que otras personas la ingieran. Hable con root farmac??utico sobre la forma adecuada para desechar el medicamento. Conserve todos los medicamentos en un lugar alejado de la vista y el alcance de los ni??os, ya que muchos frascos no son a prueba de ni??os. Cierre siempre las tapas de seguridad. Guarde el medicamento en un lugar seguro, que est?? en alto y fuera de root alcance [email or web address].[email or web address] ??Qu?? cherise hacer en sathya de elizabeth SOBREDOSIS? En sathya de sobredosis, llame a la l??luba de ayuda de control de envenenamiento al . La informaci??n tambi??n est?? disponible en l??luba en https://www.poisonhelp.org/help. En sathya de que la v??ctima mireles sufrido un colapso, elizabeth crisis convulsiva, presenta dificultades respiratorias o resulta imposible despertarla, contacte sin demora a los servicios de emergencia marcando el 911. Los s??ntomas de elizabeth sobredosis pueden incluir los siguientes: ??? dificultad para respirar, respiraci??n lenta o superficial, ronquidos inusuales ??? somnolenciaexcesiva, incapacidad para responder o despertarse ??? debilidad muscular o de las extremidades ???pupilas dilatadas o contra??campbell (c??rculos oscuros en los ojos) ??? piel fr??a y h??ken ??? ritmo card??aco lento ??Qu?? OTRA INFORMACI??N de importancia deber??a saber? Asista a todas las citas con root m??dico. Antes de realizarse alguna prueba de laboratorio, informe a root m??dico y al personal del laboratorio que maxine oxicodona. Esta prescripci??n no puede volver a surtirse. Si sigue sintiendo dolor despu??s de terminar de juan carlos la oxicodona, llame a root m??dico. Mantenga elizabeth lista escrita de todos los medicamentos con receta y sin receta (de venta rob), vitaminas, minerales y suplementos diet??ticos que maxine actualmente. Lleve esta lista con usted cada vezque visite a un m??dico o si es ingresado en el hospital. Debe llevar la lista consigo en sathya de emergencia. Nombres comercial(es): ??? Oxaydo? Oxycontin? Roxicodone? Roxybond? Xtampza??ER tambi??n disponibles gen??ricamente ? Tita producto de ochoa ya no est?? en el torres. Las alternativas gen??ricas pueden estar disponibles. ?? Tita informe sobre medicamentos es solo para root informaci??n, y no se considera malvin un consejo para el paciente. Debido a la naturaleza de informaci??n sobre drogas, por favor consulte root medico o farmac??utico sobre el uso cl??scottie espec??fico. La [employer] afirma que la informaci??n proporcionada a continuaci??n fue formulada con razonable est??ndar de asistencia, y en conformidad con el kate profesional. La [employer], [employer]. no provee representaciones o garant??as, expresas o implicadas, incluyendo, isela no limitado a, cualquiera garant??a de comercializaci??n y/o apropiado para elizabeth funci??n particular, con respecto a tiana informaci??n y niega espec??ficamente tales garant??as. Se avisa a los usuarios que las decisiones con respecto a terapia de drogas son decisiones m??dicas complejas requiriendo decisiones independientes e informadas de un profesional de ginna y que la informaci??n se da para prop??sitos de informaci??n solamente. La entera monograf??a de elizabeth droga debe ser revisada considerando un comprensivo entendimiento de las acciones, usos, y efectos secundarios de la droga. La [employer], [employer]. no endosa o recomienda el uso de ninguna medicina. La informaci??n no es un sustituto de asistencia m??dica. AHFS?? Patient Medication Information???. ?? Derechos reservados, 2023. Documento actualizado 15 Dic2022, [employer]?? [address], [address], [place], [place] [address] [place]. Todos los derechos reservados. La duplicaci??n de tita documento para root uso comercial, deber?? ser autorizada por ASHP. AHFS?? Patient Medication Information???. ?? Copyright, 2024 ?? * Christine GOFF, Brigitte Olivas: PERFORM Event Display: Patient Education Leaflets Authored Date: [id number] [facility] ?? [id number] Lesi??n por aplastamiento de la mano sin fractura Tiene elizabeth lesi??n por aplastamiento de la mano. Roca provoca dolor local, hinchaz??n y, en ocasiones, moretones. No tiene jennifer??n hueso roto. Esta lesi??n puede juan carlos entre unos pocos d??as y algunassemanas en sanar. Si la u??a se lastim?? mucho, puede ca??rsele en 1 o 2??semanas. En alrededor de un mes, probablemente comenzar?? a crecer la u??a nueva. La complicaci??n de elizabeth lesi??n por aplastamiento es elizabeth afecci??n que se denomina s??ndrome compartimental. Se produce cuando se acumula presi??n en elizabeth lali del cuerpo en la que un m??sculo est?? rodeado de tejido conectivo y la presi??n no puede liberarse. Roca ejerce presi??n sobre los m??sculos, vasos sangu??neos y nervios. Puede causar la muerte del m??sculo, par??lisis y amputaci??n. El s??ndrome compartimental se puede desarrollar r??pidamente. Es elizabeth emergencia m??dica y debe tratarse de inmediato. Cuidados en el hogar Siga estas recomendaciones para cuidarse en root casa: ??? Es posible que le pongan elizabeth f??sierra para evitar que mueva la mano lastimada. ??? Mantenga la mano en alto para reducir el dolor y la hinchaz??n. Cuando est?? sentado o acostado, mantenga el brazo elevado por encima del nivel del coraz??n, enlo posible. Para eso, puede apoyar el brazo sobre elizabeth almohada apoyada sobre root pecho; o triston, puede apoyarlo sobre elizabeth almohada a root lado. Es muy importante que jonnathan esto rony los primeros 2??d??as (48??horas) despu??s del momento de la lesi??n. ??? Coloque elizabeth compresa fr??a sobre la lali lesionada. H??lani rony??20??minutos cada 1??o??2??horas mientras est?? despierto el primer d??a paraaliviar el dolor. Puede preparar elizabeth compresa fr??a poniendo cubos de hielo en elizabeth bolsa de pl??stico o usar un paquete de verduras congeladas y envolver la compresa en elizabeth toalla delgada. Tenga cuidado de que no se moje la f??sierra a medida que se derrita el hielo. Siga usando la compresa fr??a de 3 a 4??veces al d??a hasta que el dolor y la hinchaz??n hayan desaparecido. Cubra siempre la compresa con elizabeth toalla o un pa??o para que no est?? en contacto directo con la piel. ??? Use medicamentos de venta rob, malvin paracetamol o ibuprofeno, para controlar el dolor, a menos que le hayan recetado otro medicamento. Si tiene elizabeth enfermedad cr??chandler del h??gado o de los ri??ones, consulte al proveedor de atenci??n m??dica antes de usar estos medicamentos. Tambi??n hable con root proveedor si mireles tenido elizabeth ??lcera en el est??breanna o un sangrado gastrointestinal. ??? Si tiene elizabeth f??sierra, mant??ngala seca en todo momento. Cuando se duche o se ba??e, proteja la f??sierra para que no se moje. C??brala con elizabeth bolsa pl??stica gayle, cerrada con elizabeth goma el??stica en la parte superior. Si la f??sierra se humedece, puede secarla con un secador para el omi a temperatura fr??a. ??? No pinche la herida con elizabeth aguja para drenarla. ??? La piel amoratada puede ir cambiando de color con el transcurso del tiempo. Puede ir pasando de rojiza a azulada y, luego, a amarillenta antes de volver a root color normal. ?? Atenci??n de seguimiento Programe elizabeth girish de seguimiento con el proveedor de atenci??n m??dica, o seg??n le hayan indicado,si no comienza a sentirse mejor en los siguientes 3??d??as. Si le tomaron radiograf??as, le informar??n de los nuevos hallazgos que puedan afectar root atenci??nm??dica. ?? Cu??ndo debe buscar atenci??n m??dica Llame al proveedor de atenci??n m??dica de inmediato ante cualquiera de las siguientes situaciones:??? La f??sierra de yeso se humedece o se ablanda ??? La f??sierra de yeso permanece h??ken por m??s de 24??horas ??? Siente m??s dolor debajo de la f??sierra o siente que la f??sierra le queda m??s ajustada ??? Tiene enrojecimiento, calor, hinchaz??n o supuraci??n de la herida; o la f??sierra despide un olor desagradable ??? Tiene fiebre de 100,4?F (38?C) o superior, o seg??n lo que le haya indicado el proveedor de atenci??n m??dica? Cu??ndo llamar al?? 911 Llame al?? 911 de inmediato si ocurre algo de lo siguiente: ??? El dolor es mucho peor de lo que esperaba para root lesi??n ??? No puede wallpaper remover steam los dedos ??? Se le hinchan los dedos, los siente fr??os oentumecidos, se efra azulados o siente cosquilleo en rhonda lali ?? Last Reviewed Date: 2022 00:00:00 ?? [id number] [employer]. Todos los derechos reservados. Esta informaci??n no pretende sustituir la atenci??n m??dica profesional. S??lo root m??dico puede diagnosticar y tratar un problema de ginna. ?? Patient Care team information Care Team Personnel Name: Not on Staff, PCP Position: S Physician (General Medicine) Member Role: PCP Care Team Related Persons Name: JOANNE BERRY Name: RUBY BROTHERS Insurance Providers Guarantor name: [employer] Health Plan Information #: 1 Payer: SELF PAY Payer Identifier: NA Member Number: [id number] Group Number: [id number] Subscriber Identifier: [id number] Relationship to Subscriber: self Coverage Type: Self-pay (Includes applicants for insurance and Medicaid applicants) Coverage Verification Date: NA Telecom: NA Address: NA
--- NOTE | ~2025-09-30 | XR_ITS ---
CLINICAL HISTORY: pain, injury 4 view right wrist Comparison: None provided Findings: No fractures or dislocations. No significant loss of joint space, osteophyte, or erosions. No radiopaque foreign body. IMPRESSION: 1. No acute findings This document has been electronically signed by: Mabel Pineda MD on 09/30/2025 18:42:36
--- NOTE | ~2025-09-30 | XR_ITS ---
CLINICAL HISTORY: pain, injury 3 view right hand Comparison: None provided Findings: Bones intact. No dislocations. No significant loss of joint space or osteophytes. No erosions. No radiopaque foreign body. IMPRESSION: 1. No acute findings This document has been electronically signed by: Mabel Pineda MD on 09/30/2025 18:35:46
[2025-09-30 17:44] VITALS: BP 130/68; PULSE 70; RESP 14; TEMP 36.7; O2SAT 99; BMI 21.2
--- NOTE | 2025-09-30 17:49 | ED_ITS ---
HPI - General Adult General Chief complaint: Extremity Injury, Upper Stated complaint: RIGHT HAND INJURY (WORK) Time Seen by Provider: 09/30/25 18:59 Source: patient Mode of arrival: ambulatory Limitations: no limitations History of Present Illness ED Provider: Blanka Hall PA-C HPI narrative: Patient is a 24 year old female with no reported medical history presenting to the emergency department today with right hand and wrist pain. Patient is right hand dominant. 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 Patient states that she had an x-ray at [facility] when the incident happened that was read as normal but she continues to have pain. Patient denies any other complaints at this time. Related Data Previous Rx's ?Medication ?Instructions ?Recorded dicyclomine 20 mg tablet 20 mg PO BID Abdominal pain #20 03/19/21 tabs metoclopramide HCl 10 mg tablet 10 mg PO Q6H PRN nause a and 03/19/21 (Reglan) vomiting #30 tabs ondansetron HCl 4 mg tablet 4 mg PO Q8H PRN nausea and 03/19/21 (Zofran) vomiting #14 tabs acpnpvlmvq-ylzrcdfdeetjm-eidycttf 1 cap PO Q6H PRN dorys n 4 days #16 09/27/21 50 mg-300 mg-40 mg capsule caps (Fioricet) naproxen 500 mg tablet 500 mg PO BID PRN pain 10 da ys #20 09/27/21 tabs cephalexin 500 mg capsule 500 mg PO TID 7 days #21 cap s 04/28/22 ibuprofen 600 mg tablet 600 mg PO Q6H PRN pain #30 t abs 04/28/22 cefuroxime axetil 250 mg tablet 250 mg PO BID 7 days # 14 tabs 05/15/22 phenazopyridine 100 mg tablet 200 mg (2 x 100 mg) PO T ID 2 days 05/15/22 (Pyridium) #6 tabs ondansetron 4 mg disintegrating 4 mg PO Q8H PRN nausea and 05/26/22 tablet vomiting #20 tabs nitrofurantoin 100 mg PO Q12H 5 days #10 ca ps 02/24/23 monohydrate/macrocrystals 100 mg capsule (Macrobid) ondansetron 4 mg disintegrating 4 mg PO Q8H PRN nausea and 02/24/23 tablet vomiting #20 tabs doxycycline hyclate 100 mg capsule 100 mg PO BID 7 day s #14 caps 02/17/24 metronidazole 500 mg tablet 500 mg PO Q12H 7 days #14 tabs 02/17/24 valacyclovir 500 mg tablet 500 mg PO BID 3 days #6 tab s 02/17/24 fluconazole 150 mg tablet 150 mg PO Q3D 2 doses #2 tab s 02/20/24 polyethylene glycol 3350 17 17 g PO DAILY #510 grams 0 05/22/24 gram/dose oral powder (Miralax) pyridoxine (vitamin B6) 25 mg 25 mg PO TID PRN vomitin g/nausea 05/22/24 tablet #90 tabs cephalexin 500 mg capsule 500 mg PO QID 5 days #20 cap s 12/14/24 ondansetron 4 mg disintegrating 4 mg PO Q8H 3 days #9 tabs 06/22/25 tablet cefuroxime axetil 500 mg tablet 500 mg PO Q12H #14 tab s 06/24/25 polyethylene glycol 3350 17 17 g PO DAILY PRN constipa tion 06/24/25 gram/dose oral powder (Miralax) #238 grams carbamide peroxide 6.5 % ear drops 5 drp otic (ears) Q 12H 4 days #15 07/30/25 (Debrox) mL naproxen 500 mg tablet 500 mg PO BID PRN pain #14 t abs 07/30/25 phenazopyridine 200 mg tablet 200 mg PO TID 6 doses #6 tabs 07/30/25 (Pyridium) Allergies Allergy/AdvReac Type Severity Reaction Status Date / Time No Known Allergies Allergy Verified 09/30/25 17:47 Review of Systems Constitutional: Constitutional: Reports as per HPI Eyes: Eyes: Reports as per HPI ENT: Reports as per HPI Cardiovascular: Cardiovascular: Reports as per HPI Respiratory: Respiratory: Reports as per HPI Gastrointestinal: Gastrointestinal: Reports as per HPI Genitourinary: Genitourinary: Reports as per HPI Musculoskeletal: Musculoskeletal: Reports as per HPI Integumentary/Breasts: Skin/Breast: Reports as per HPI Neurologic: Reports as per HPI Psychiatric: Psychiatric: Reports as per HPI Endocrine: Endocrine: Reports as per HPI Hematologic/Lymphatic: Hematologic/Lymphatic: Reports as per HPI Allergic/Immunologic: Allergic/Immunologic: Reports as per HPI PMFSH Past Medical History Attestation statement: The following information was validated with the patient. Source: old records reviewed and nursing notes reviewed Medical History Abscess Social History Social History Alcohol intake: never Patient Tobacco Use Status: Never used Tobacco Physical Exam ED Vital Signs: Vital Signs - 24 hr 09/30/25 17:44 Temperature 98.1 F Pulse Rate 70 Respiratory Rate 14 Blood Pressure 130/68 Pulse Oximetry 99 Oxygen Delivery Method Room Air BMI result Body Mass Index 21.2 Const General: cooperative, no acute distress, alert and awake Nutritional Appearance: well nourished Orientation/consciousness: patient oriented x3 HENMT Head: Yes normal to inspection and Yes atraumatic Ears: hearing grossly normal bilaterally and external ears normal General nose exam: Normal external nose present, no nasal discharge noted and no epistaxis Face and sinus: Yes normal facial exam, No abrasion and No laceration Mouth: Normal oral and palatal mucosa present, no drooling and no muffled voice Eyes General: appearance normal, both eyes and all related structures Periorbital: periorbital findings normal Eyelids: Yes eyelids normal Conjunctivae: conjunctivae normal Pupils: Equal, round and reactive pupils present EOM: EOMs intact bilaterally Neck Neck: Yes normal visual inspection and Yes full ROM Resp Effort & Inspection: normal respiratory effort and able to speak in complete sentences Neuro General: patient oriented x3, moves all extremities and CN's II-XI intact bilaterally Cranial nerves: Yes Equal, round and reactive pupils present Cognition (Neuro): normal cognition Extrem Other: swelling present to the dorsal aspect of the right hand and wrist minimal bruising present to the dorsal aspect of the right hand and wrist General: Yes full ROM and Yes capillary refill normal Psych Appearance: grossly normal Mental Status: mental status grossly normal Affect: normal affect Attitude: cooperative Thought process: Normal thought process present Thought content: Normal thought content present Insight: Good insight present (Psych) Course Course Course Narrative: Rapid medical examination performed in triage by Blanka Hall PA-C: Patient is a 24 year old female presenting to the emergency department with right hand pain. Patient states she was injured at work a week ago and had a negative XR at [facility] but the pain continues. Detailed physical exam and re view of systems are deferred to the primary care physician. Imaging ordered. Patient placed back in the waiting room pending room availability and results. Medications Administered Discontinued Medications Generic Name Dose Route Start Last Admin Trade Name Shiloh PRN Reason Stop Dose Admin Ketorolac Tromethamine 15 mg 09/30/25 19:00 09/30/25 19:25 Ketorolac Tromethamine 15 Mg/Ml Vial IM 09/30/25 19:01 15 mg ONCE ONE Administration Procedures Orthopedic Splinting/Casting R hand and wrist sprain: Side: right Upper Extremity Injury Location: wrist and hand Upper Extremity Immobilizer: volar splint Medical Decision Making Medical Decision Making MDM Narrative: Patient is a 24 year old female with no reported medical history presenting to the emergency department today with right hand and wrist pain. Patient is right hand dominant. Patient's physical exam was as noted in the physical exam portion of this note. Patient's right wrist and hand x-rays showed no acute process. Patient's clinical presentation is most consistent with a healing wrist + hand sprain / strain / contusion. Patient's right wrist was placed in a velcro volar wrist splint, without incident. Patient's PMS was intact prior to and after splint placement. I explained my physical exam findings as well as all test results to the patient. I answered all questions asked by the patient. I stressed the importance of the patient taking her medication as directed (either prescribed or as the over the counter packaging recommends). I stressed the importance of the patient following up with her primary care provider, the orthopedic team, and work connection. I stressed the importance of the patient returning to the emergency department immediately if her symptoms were to worsen or if she were to develop any dizziness, shortness of breath, difficulty terra athing, chest pain, blurry vision, loss of vision, nausea, vomiting, abdominal pain, fever, chills, back pain, or any other complaints. Patient verbalized agreement and understanding with this treatment plan and discharge. Differential Diagnosis Differential Diagnoses: The differential diagnosis associated with the presentation includes Wrist sprain Wrist strain Wrist contusion Hand sprain Hand strain Admission/Observation Consideration of admission/observation: Escalation of care including admission/observation considered Patient would have been admitted to the hospital had her work up had any findings where hospital admission was appropriate and her clinical presentation warranted hospital admission. Independent Interpretation I performed an independent interpretation of an: Plain X-Ray Interpretation: My interpretation is in agreement with the radiologist's impression of these imaging studies as written below. CLINICAL HISTORY: pain, injury 4 view right wrist Comparison: None provided Findings: No fractures or dislocations. No significant loss of joint space, osteophyte, or erosions. No radiopaque foreign body. IMPRESSION: 1. No acute findings This document has been electronically signed by: Mabel Pineda MD on 09/30/2025 18:42:36 Dictated By: Mabel Pineda MD Signed By: Electronically signed by Mabel Pineda MD 09/30/25 1843 CLINICAL HISTORY: pain, injury 3 view right hand Comparison: None provided Findings: Bones intact. No dislocations. No significant loss of joint space or osteophytes. No erosions. No radiopaque foreign body. IMPRESSION: 1. No acute findings This document has been electronically signed by: Mabel Pineda MD on 09/30/2025 18:35:46 Dictated By: Mabel Pineda MD Signed By: Electronically signed by Mabel Pineda MD 09/30/25 [id number] Radiology Impression Discussion of test interpretation with radiology: I have reviewed the radiologist's reading. Discharge Plan Discharge Clinical Impression: Sprain and strain of wrist Patient Disposition: Home, Self-Care Instructions: Wrist Injury (ED), Sprain (ED) Additional Instructions: Your splint is velcro and can be removed if necessary for showering and comfort. If you have any change in sensation, movement, or color of your right fingers - you may loosen the splint. At no time should the splint be so tight that there is any change in sensation, movement, or color to your right fingers. Follow up with your primary care provider, the orthopedic team, and work connection given this was a work place injury. Return to the emergency department immediately if your symptoms worsen or if you develop any numbness, tingling, dizziness, shortness of breath, difficulty breathing, chest pain, blurry vision, loss of vision, nausea, vomiting, abdom inal pain, fever, chills, back pain, or any other complaints. Please see the information below about our Patient Portal. If you are not yet enrolled in the [facility] Patient Portal, you will receive an enrollment email invitation following your visit to any [facility] setting. You may also self-enroll in the Patient Portal by visiting our website: [email or web address] The following information is required to access the Patient Portal: - Your [facility] Medical Record Number - Your personal home email address (must match what is in your electronic medical record, Registration staff can assist with this) - Name - Date of Capabilities of the Patient Portal: - Message some providers - View upcoming appointments - Access your health summary, medical history, and visit history - View current conditions and allergies - View procedure and lab results - View your medications, including guidelines, side effects, and precautions - Complete pre-appointment questionnaires requested by your provider - Ready summary reports of your office visits and procedures To access the Patient Portal Mobile [employer], follow these directions: - Search [employer] in the [employer] Store or [employer] Store - Download the Dinah - Search for [facility] - Enter your login/password Prescriptions: No Action ondansetron HCl [Zofran] 4 mg tablet 4 mg PO Q8H PRN (Reason: nausea and vomiting) Qty: 14 0RF dicyclomine 20 mg tablet 20 mg PO BID Qty: 20 0RF metoclopramide HCl [Reglan] 10 mg tablet 10 mg PO Q6H PRN (Reason: nausea and vomiting) Qty: 30 0RF naproxen 500 mg tablet 500 mg PO BID PRN (Reason: pain) 10 Days Qty: 20 0RF dcdbachgxm-shhlsndgpjinn-zcog [Fioricet] 50-300-40 mg capsule 1 cap PO Q6H PRN (Reason: pain) 4 Days Qty: 16 0RF Rx Instructions: headache ondansetron 4 mg tablet,disintegrating 4 mg PO Q8H PRN (Reason: nausea and vomiting) Qty: 20 0RF cephalexin 500 mg capsule 500 mg PO TID 7 Days Qty: 21 0RF ibuprofen 600 mg tablet 600 mg PO Q6H PRN (Reason: pain) Qty: 30 0RF cefuroxime axetil 250 mg tablet 250 mg PO BID 7 Days Qty: 14 0RF phenazopyridine [Pyridium] 100 mg tablet 200 mg PO TID 2 Days Qty: 6 0RF ondansetron 4 mg tablet,disintegrating 4 mg PO Q8H 3 Days Qty: 9 0RF cefuroxime axetil 500 mg tablet 500 mg PO Q12H Qty: 14 0RF polyethylene glycol 3350 [Miralax] 17 gram/dose powder 17 g PO DAILY PRN (Reason: constipation) Qty: 238 0RF nitrofurantoin monohyd/m-cryst [Macrobid] 100 mg capsule 100 mg PO Q12H 5 Days Qty: 10 0RF Rx Instructions: must administer with a meal/food ondansetron 4 mg tablet,disintegrating 4 mg PO Q8H PRN (Reason: nausea and vomiting) Qty: 20 0RF doxycycline hyclate 100 mg capsule 100 mg PO BID 7 Days Qty: 14 0RF metronidazole 500 mg tablet 500 mg PO Q12H 7 Days Qty: 14 0RF valacyclovir 500 mg tablet 500 mg PO BID 3 Days Qty: 6 0RF fluconazole 150 mg tablet 150 mg PO Q3D Qty: 2 0RF polyethylene glycol 3350 [Miralax] 17 gram/dose powder 17 g PO DAILY Qty: 510 0RF pyridoxine (vitamin B6) 25 mg tablet 25 mg PO TID PRN (Reason: vomiting/nausea) Qty: 90 0RF cephalexin 500 mg capsule 500 mg PO QID 5 Days Qty: 20 0RF Debrox 6.5 % drops 5 drp otic (ears) Q12H 4 Days Qty: 15 0RF phenazopyridine [Pyridium] 200 mg tablet 200 mg PO TID Qty: 6 0RF naproxen 500 mg tablet 500 mg PO BID PRN (Reason: pain) Qty: 14 0RF Referrals: [facility] Orthopedic Surgeons [Provider Group] Referral Note: Call to establish and follow up with the orthopedic team. Work Connection [Provider Group] Referral Note: Call to establish and follow up with the work connection team. Stand Alone Forms: Work/School Release Interventions: ED Discharge Assessment Last Done: 09/30/25 19:31 Print Language: Haitian
[2025-09-30 19:31] VITALS: BP 130/68; PULSE 70; RESP 14; TEMP 36.7; O2SAT 99
--- OUTSIDE RECORDS SUMMARY | 2025-09-30 22:49 | XMS_ITS | Clinical Summary ---
Author Organization [employer] Address [address] [place] [address] Care Team Providers Care Cub Reporter Name Role Phone Unavailable Primary Care Provider [...] Pap Smear 2019 COVID-19 Vaccine (1 - 2024-2 6 season) 2025 Influenza Vaccine (#1) 2025 11/02/2018 [...] topic Insurance [facility] C3
== END 2025-09-30 19:39 | disposition home or self-care (01) ==
LOC: HO.ED 19:32
PROVIDERS: Emergency Provider Emergency Medicine
DX: S63.501A Unspecified sprain of right wrist, initial encounter (principal); S66.911A Strain of unspecified muscle, fascia and tendon at wrist and hand level, right hand, initial encounter; X58.XXXA Exposure to other specified factors, initial encounter; Y93.9 Activity, unspecified; Y92.9 Unspecified place or not applicable; Y99.0 Civilian activity done for income or pay; M25.531 Pain in right wrist; M79.641 Pain in right hand
CPT/HCPCS: 73110; 73130; 96372; 99283; 99284; J1885

== ENCOUNTER → 2025-09-30 17:49 | Outpatient (BNV) | payer SELFPAY | PROVIDERS: Visit Provider Student in an Organized Health Care Education/Training Program | DX: M25.531 Pain in right wrist (principal); M79.641 Pain in right hand | CPT/HCPCS: 73110; 73130 ==